=== PATIENT | female | born 1955 | race Caucasian/White ===

== ENCOUNTER → 2020-01-31 10:33 | Outpatient (CLI) | payer BC, SELFPAY ==
--- NOTE | ~2020-01-31 | CT_ITS ---
EXAMINATION: CT lung screening DATE: 01/31/2020 10:55 INDICATION: Personal history of nicotine dependence, prior smoker with 35 pack year history TECHNIQUE: Computed tomography (CT) of the chest was performed without intravenous contrast. The dose -length product (DLP) was 374.93 mGy-cm. 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 COMPARISON: 12/14/2016 FINDINGS: There is severe emphysema. Patchy airspace opacities are present in the right lower lobe, l ikely infectious or. No suspicious pulmonary nodules are identified. No pathologically enlarged thora cic lymph nodes are identified. The heart size is normal. There is no pleural effusion or pneumothora x calcified coronary artery atherosclerosis is noted. There is a small sliding hiatal hernia. There i s mild thoracic spondylosis. IMPRESSION: 1. Lung-RADS category 1: Negative. Continue annual screening with noncontrast low-dose chest CT in 12 months. Reviewed, dictated and finalized at location B. IMPRESSION: 1. Lung-RADS category 1: Negative. Continue annual screening with noncontrast l ow-dose chest CT in 12 months.
== END ==
PROVIDERS: PCP Family Medicine; Visit Provider Nurse Practitioner Family
DX: Z12.2 Encounter for screening for malignant neoplasm of respiratory organs (principal); Z87.891 Personal history of nicotine dependence
CPT/HCPCS: G0297

== ENCOUNTER → 2020-11-30 13:40 | Outpatient (CLI) | payer BC, SELFPAY ==
--- NOTE | ~2020-11-30 | US_ITS ---
EXAMINATION: US venous doppler [facility] DATE: 11/30/2020 14:19 INDICATION: Lower limb swelling. TECHNIQUE: Grayscale ultrasound images without and with compression and Doppler ultrasound images of the bilateral lower extremity veins were obtained. COMPARISON: None. FINDINGS: The visualized portions of right common femoral vein, profunda (deep) femoral vein, femoral vein, pop liteal vein, peroneal veins, posterior tibial veins, and greater saphenous vein outflow are patent. The visualized portions of left common femoral vein, profunda femoral vein, femoral vein, popliteal v ein, peroneal veins, posterior tibial veins, and greater saphenous vein outflow are patent. IMPRESSION: 1. No deep venous thrombosis. Reviewed, dictated and finalized at location A.
== END ==
PROVIDERS: PCP Family Medicine; Visit Provider Family Medicine
DX: M79.89 Other specified soft tissue disorders (principal)
CPT/HCPCS: 93970

== ENCOUNTER 2021-04-30 10:46 | Inpatient (IN) | payer BC, SELFPAY ==
[2021-04-30] VITALS (22 sets, daily range): BP systolic 122–186; BP diastolic 56–78; PULSE 78–110; RESP 14–34; TEMP 37–37.3; O2SAT 81–100; BMI 48.6
--- NOTE | ~2021-04-30 | CT_ITS ---
EXAMINATION: CTA chest PE protocol EXAM DATE: 05/05/2021 16:28 INDICATION: COVID pneumonia. TECHNIQUE: Spiral CTA of the chest (pulmonary arteries) was performed with 100 cc Omnipaque 350 intr avenous contrast injection. Images were acquired during the pulmonary arterial phase. Coronal maxi mum intensity projection 3D-reconstructions were created by the technologist on dedicated workstation . Axial, coronal and sagittal reformatted images were reviewed. The dose-length product (DLP) for t his examination was 938.31 mGy-cm. The exposure was tailored according to patient size (auto mA exp osure control), and iterative reconstruction (ASIR) was used as additional dose reduction technique. Comparison is made to prior examination from 01/31/2020. FINDINGS: There are no pulmonary emboli in the 1st through 3rd order (central and interlobar) pulmon kristen arteries. Some loss of attenuation in the segmental pulmonary arteries due to respiratory motion , but no intraluminal filling defects suspected. No thoracic aortic dissection. Moderate amount of lower lobe predominant airspace disease probably pneumonia. There is severe chronic emphysema. Ther e are no pleural or pericardial effusions. Tracheobronchial tree is patent. Mild mediastinal lymp hadenopathy probably reactive. There is no pneumothorax. There is cardiomegaly. There is mild cor onary arterial calcification, arterial sclerosis. Upper abdomen is unremarkable. There is thoracic spondylosis without osteoblastic or osteolytic lesions identified. Right mid rib fracture with non union. IMPRESSION: 1. Limited segmental evaluation, but no pulmonary emboli are suspected. 2. Moderate pneumonia. 3. Severe emphysema. Reviewed, dictated and finalized at location B. TER LINER
--- NOTE | ~2021-04-30 | XR_ITS ---
EXAMINATION: XR chest 1V portable EXAM DATE: 05/03/2021 08:53 INDICATION: COVID pneumonia. TECHNIQUE: Portable AP frontal chest x-ray was obtained. Comparison is made to prior examination from 04/30/2021. FINDINGS: Diffuse abnormal mid and lower lung zone reticulation, pneumonia and/or edema. Appearance i s either stable or with mild interval progression. Mild cardiomegaly. There is no pneumothorax suspec anupam. There are no pleural effusions. Chronic hyperinflation. There are mild bony degenerative changes . IMPRESSION: Moderate amount of basilar predominant pneumonia and/or edema, stable or with mild progr ession. Reviewed, dictated and finalized at location B. QUE COLLECTOR IMPRESSION: Moderate amount of basilar predominant pneumonia and/or edema, sta ble or with mild progression.
--- NOTE | ~2021-04-30 | XR_ITS ---
EXAMINATION: XR chest 1V portable DATE: 04/30/2021 11:21 INDICATION: COVID exposure. Hypoxia. TECHNIQUE: frontal view of the chest was obtained. COMPARISON: Chest radiograph dated chest CT dated 01/31/2020 FINDINGS: Emphysema with increased lucency and architectural distortion in the upper lung zones. Increased inte rstitial pattern and mild airspace opacities in the bilateral mid to lower lung zones which could rep resent pulmonary edema or pneumonia. No pleural effusion or pneumothorax. The cardiomediastinal silho uette is normal. IMPRESSION: 1. Interstitial and airspace opacity in the bilateral mid and lower lung zones which could represent pulmonary edema or pneumonia. 2. Emphysema. Reviewed, dictated and finalized at location B. E CHARGE RN
--- NOTE | ~2021-04-30 | XR_ITS ---
XR chest 1V portable DATE: 05/14/2021 11:23 INDICATION: Covid pneumonia TECHNIQUE: Portable upright AP chest on 05/10/2021 at 1116 hours COMPARISON: 05/08/2021 portable AP chest FINDINGS: There are patchy infiltrates in both mid and particularly lower lung zones, increased since 05/08/2021. Bilateral hyperinflation suggesting COPD. Heart size appears borderline. No pleural effusion or pulmonary vascular congestion or pneumothorax i s evident. Diffuse osteopenia. IMPRESSION: Patchy infiltrate primarily in the lower lung zones suggesting bilateral pneumonia. Aspir ation pneumonitis is additional consideration. Bilateral hyperinflation suggesting COPD Diffuse osteopenia Reviewed, dictated and finalized at location A. MACOLOGY ASSOCIATE IMPRESSION: Patchy infiltrate primarily in the lower lung zones suggesting bila teral pneumonia. Aspiration pneumonitis is additional consideration. Bilateral hyperinflation suggesting COPD Diffuse osteopenia
--- NOTE | ~2021-04-30 | US_ITS ---
EXAMINATION: US venous doppler LE EXAM DATE: 05/03/2021 10:17 INDICATION: COVID pneumonia. Hypoxia, shortness of breath. TECHNIQUE: Multiple grayscale, color flow and Doppler images of the lower extremity deep venous syste ms bilaterally were obtained and reviewed. Comparison is made to prior examination from 11/30/2020. FINDINGS: Right side: The right common femoral, femoral and profunda veins demonstrate normal color flow, respi ratory variation, augmentation and compressibility. Compressibility, color flow confirmed within the right popliteal, posterior tibial, peroneal, and greater saphenous veins. Left side: The left common femoral, femoral and profunda veins demonstrate normal color flow, respira tory variation, augmentation and compressibility. Compressibility, color flow confirmed within the l eft popliteal, posterior tibial, peroneal, and greater saphenous veins. IMPRESSION: 1. No lower extremity deep venous thrombosis bilaterally. Reviewed, dictated and finalized at location B. ICAL THERAPY TECHNICIAN
--- NOTE | ~2021-04-30 | XR_ITS ---
EXAMINATION: XR chest 1V portable DATE: 05/08/2021 06:07 INDICATION: COVID-19 pneumonia. TECHNIQUE: A single frontal view of the chest was obtained. COMPARISON: Chest single view 05/03/2021, chest CT 05/05/2021, chest 2 views 05/18/2016 FINDINGS: There are lucencies in the lungs, consistent with emphysema. There are interstitial and air space opacities throughout the lungs bilaterally with a lower lung predominance. No pleural effusion or pneumothorax. Cardiomegaly is noted. IMPRESSION: 1. Diffuse lung disease, stable from 05/03/2021, consistent with pneumonia versus pulmonary edema sup erimposed on severe emphysema. 2. Cardiomegaly. Reviewed, dictated and finalized at location A. ER IMPRESSION: 1. Diffuse lung disease, stable from 05/03/2021, consistent with pneumonia vers us pulmonary edema superimposed on severe emphysema. 2. Cardiomegaly.
--- NOTE | 2021-04-30 10:49 | ECG_ITS ---
Measurements Intervals [place] Rate: 100 P: 9 TX: 166 QRS: 60 QRSD: 74 T: 38 QT: 350 QTc: 452 Interpretive Statements SINUS TACHYCARDIA BASELINE ARTIFACT- I, II, III, AVR, AVL, AVF, V1, V3-V6 BORDERLINE ECG Electronically Signed On 04-30-2021 16:39:44 UNDERWEAR CUTTER by Segun Kerr D.O.
[2021-04-30 11:03] LABS: Basophils Percent Auto 0.3 % (0.2-1.2); Hematocrit 39.3 % (37.0-47.0); Hemoglobin 11.6 g/dL (12.0-15.0); Immature Granulocyte Absolute 0.03 K/mm3 (0.00-0.031); Immature Granulocyte Percent A 0.4 % (0-0.5); Lymphocytes Absolute Auto 0.95 K/mm3 (0.9-3.2); Lymphocytes Percent Auto 13.9 % (18.3-44.2); Mean Corpuscular HGB Conc 29.5 g/dl (32-36); Mean Corpuscular Hemoglobin 26.7 pg (26-34); Mean Corpuscular Volume 90.3 fl (80-100); Mean Platelet Volume 9.8 fl (7.4-10.4); Monocytes Absolute Auto 0.6 K/mm3 (0.1-0.6); Monocytes Percent Auto 8.9 % (2.6-8.5); Neutrophils Absolute Auto 5.2 K/mm3 (1.3-6.7); Neutrophils Percent Auto 76.5 % (45.5-73.1); Platelet Count Result 219 k/mm3 (150-375); Red Blood Count 4.35 M/mm3 (4.2-5.4); Red Cell Distribution Width 16.2 % (11.5-14.5); White Blood Count 6.8 K/mm3 (4.5-10.0)
[2021-04-30 11:12] LABS: INR 0.9; Prothrombin Time 12.2 Seconds (11.1-14.7)
[2021-04-30 11:14] LABS: Alanine Aminotransferase 55 U/L (4-35); Alkaline Phosphatase 78 U/L (38-126); Anion Gap 9 mmol/L (8-16); Aspartate Amino Transferase 84 U/L (14-36); Bilirubin,Total 0.6 mg/dL (0.2-1.3); Blood Urea Nitrogen 11 mg/dL (7-17); Carbon Dioxide 37 mmol/L (22-30); Chloride 92 mmol/L (98-107); Estimated CRCL calculation 133 ml/min; Estimated Glomerular Filt Rate > 60; Glucose 161 mg/dL (65-110); Sodium 138 mmol/L (137-145)
[2021-04-30 11:25] LABS: Base Excess ABG 10.7 mEq/l (+/-2.0); Carboxyhemoglobin 0.4 % THb (0-2.0); Fractional Inspired Oxygen 100 %; HCO3 ABG 37.6 mEq/l (22.0-26.0); Oxygen Content ABG 16.6 %vol (16.0-22.0); Oxyhemoglobin 93.9 % THb (90.0-100.0); PO2 ABG 76.4 mmHg (80.0-100.0); PO2 FiO2 Ratio Arterial Blood 0.76 %; Reduced Hemoglobin 5.7 %THb (0-5.0); Total Hemoglobin 12.5 g/dL (12.0-18.0); pH ABG 7.404 (7.350-7.450)
[2021-04-30 11:26] LABS: Device NON-REBREATHER MASK; Modified Allen's Test Pass; PCO2 ABG 61.6 mmHg (35.0-45.0); Site Drawn RIGHT RADIAL
[2021-04-30 11:30] LABS: Anisocytosis 1+ (NORMAL); Hypochromasia 1+ (NORMAL); Platelet Estimate Adequate (Adequate)
[2021-04-30] MEDS: ONDANSETRON INJ 4 MG/2 ML VIAL IV PUSH ×2 (11:58→16:47)
--- NOTE | 2021-04-30 12:08 | ED.SOB ---
HPI - SOB/Dyspnea General Chief Complaint: Shortness of Breath/Dyspnea Stated Complaint: SOB Time Seen by Provider: 04/30/21 10:47 History of Present Illness HPI Narrative: Patient is a 66-year-old female who presents ER with shortness of breath. Patient has history of emphysema. Patient typically wears 5 L of oxygen at home. She was found to be satting 62% by EMS and was placed on 15 L. Patient had the [employer] vaccination for Covid. She reports that her entire family came down with Covid and had been quarantining in their rooms within the same house as her. They are all coming off quarantine today however she is nearly short of breath. Denies fevers or chills or sweats. Patient is poorly ambulatory at baseline due to her severe lung disease. She has not had her booster shot. Related Data Home Medications Medication Instructions Recorded Confirmed aspirin 81 mg tablet,delayed 81 mg PO DAILY 04/10/19 12/31/20 release amoxicillin 875 mg-potassium 1 tablet PO BID 12/31/20 12/31/20 clavulanate 125 mg tablet Allergies Allergy/AdvReac Type Severity Reaction Status Date / Time No Known Allergies Allergy Verified 04/30/21 10:51 Review of Systems Review of Systems: All systems reviewed & are unremarkable except as noted in HPI and below Constitutional: Constitutional: Denies chills, Denies fever(s) and Reports weakness ENT: Denies nasal congestion and Denies sore throat Cardiovascular: Cardiovascular: Denies chest pain, Denies rapid heart rate and Denies radiating jaw, neck or arm pain Respiratory: Respiratory: Denies cough, Reports dyspnea and Denies wheezing Gastrointestinal: Gastrointestinal: Denies abdominal pain, Denies nausea and Denies vomiting Genitourinary: Genitourinary: Denies nocturia and Denies dysuria [facility] Past Medical History Medical History (Updated 04/30/21 @ 18:05 by Patrice Petersen MD) Anxiety disorder, unspecified Dyspnea Emphysema lung Foot callus Morbid obesity Severe obesity (BMI >= 40) Swelling of lower leg Thrush, oral Family History Family History Father Hypertension Family history of diabetes mellitus in first degree relative Diabetes mellitus, Onset Age: 78 Mother Cerebrovascular accident, Onset Age: 66 Family history of diabetes mellitus in first degree relative Family history of coronary artery disease Diabetes mellitus, Onset Age: 66 Sibling Family history of diabetes mellitus in first degree relative Social History Social History Smoking end date: 05/22/15 Alcohol intake: never Exam Narrative: GENERAL: ill-appearing, well-nourished, and in moderate distress. HEAD: Normocephalic, atraumatic. EYES: PERRL and EOMI. ENT: Mucous membranes moist. CHEST: Clear to auscultation. Moderate respiratory distress. HEART: Tachycardic and regular. Normal peripheral pulses. ABDOMEN: Soft, nontender, nondistended. EXTREMITIES: Normal range of motion. No edema. SKIN: Warm, dry, no rash. NEURO: Alert and oriented x3. PSYCH: Normal mood and affect. Course Course Emergency Course: Patient informed results. Placed on BiPAP for comfort. Decadron given. Suspect COVID-19 infection. Vital Signs Vital signs: Vital Signs Temperature 99.2 F 04/30/21 10:43 Pulse Rate 105 H 04/30/21 10:43 Respiratory Rate 34 H 04/30/21 10:43 Blood Pressure 186/72 H 04/30/21 10:43 Pulse Oximetry 91 04/30/21 10:43 Temperature 99.2 F 04/30/21 10:43 Pulse Rate 100 04/30/21 14:15 Respiratory Rate 16 04/30/21 14:15 Blood Pressure 132/78 04/30/21 12:49 Pulse Oximetry 81 L 04/30/21 14:15 MDM - SOB/Dyspnea Lab Data Result diagrams: 04/30/21 10:56 04/30/21 10:56 Labs: Lab Results 04/30/21 04/30/21 04/30/21 Range/Units 10:56 10:56 10:56 WBC 6.8 (4.5-10.0) K/mm3 RBC 4.35
[2021-04-30 12:25] LABS: NT Pro B Type Natriuretic Pept 125 pg/mL (5-100)
[2021-04-30] MEDS: DEXAMETHASONE SOD PHOS INJ 4 MG/ML VIAL 6 MG IV PUSH (12:37)
--- NOTE | 2021-04-30 14:21 | PC.NURSE ---
patient verbalizing numerous c/o about comfort measures. patient reports that the room is too hot, meal tray provided was gross , the bed is uncomfortable and the c-pap keeps beeping. patient requesting a fan for her damaris and called this rn stupid when told it was against droplet precautions.
[2021-04-30 15:46] LABS: EDCOVIDSCREEN Negative (Negative)
--- NOTE | 2021-04-30 16:30 | PM.IMHP ---
H&P: HPI History of Present Illness Date/Time: 04/30/21 16:30 Chief Complaint: Shortness of breath. Narrative: This is a 66-year-old female with chronic respiratory failure on 5 L nasal cannula, COPD/emphysema, and diet-controlled diabetes who presented to the emergency department earlier today from home for evaluation of shortness of breath. Several of her family members contracted COVID and they have been in quarantine in her house for the last couple of weeks. They have started feeling better however the patient has now developed symptoms to include an increase in her cough from baseline occasionally productive of milky colored phlegm, decreased appetite, sweats, and subjective fever. She has also had increasing shortness of breath to the point where she has not really been able to do anything today. Family members called 911 on EMS arrival her SpO2 was 65% her normal 5 L of oxygen. Chest x-ray done on arrival today showed findings suspicious for pneumonia and her SARS-CoV-2 by PCR has come back positive. Currently she is on BiPAP and feels much more comfortable. She denies chest pain, pleuritic pain, palpitations, nausea, vomiting, and diarrhea. She did received the [employer] COVID vaccination in early spring but has yet to have a booster. Review of Systems Review of Systems: Twelve systems were reviewed. No syncope or near syncope. She denies anosmia and dysgeusia. No dysuria. She has intermittent lower extremity edema which is unchanged. No history of venous thromboembolism. Except as documented, all other systems were reviewed and are negative. [facility] Past Medical History Medical History (Updated 04/30/21 @ 22:16 by Holly Rider PA-C) Anxiety disorder, unspecified Chronic respiratory failure with hypoxia, on home oxygen therapy COPD with emphysema Diet-controlled diabetes mellitus Emphysema lung Obstructive sleep apnea on CPAP Severe obesity (BMI >= 40) Surgical History Surgical History (Updated 04/30/21 @ 22:16 by Holly Rider PA-C) No history of major surgery within 1 month Family History Family History Father Hypertension Family history of diabetes mellitus in first degree relative Diabetes mellitus, Onset Age: 78 Mother Cerebrovascular accident, Onset Age: 66 Family history of diabetes mellitus in first degree relative Family history of coronary artery disease Diabetes mellitus, Onset Age: 66 Sibling Family history of diabetes mellitus in first degree relative Social History Social History (Updated 04/30/21 @ 21:57 by Holly Rider PA-C) Social History: Surrogate decision maker: Chang Castaneda, spouse. Code status: Full code. Smoking status: Former smoker Smoking end date: 05/22/15 Additional smoking assessment comments: 1 to 2 packs a day for approximately 45 years Alcohol intake: never Substance use: never Additional living arrangements comments: The patient lives in [place] with her . Additional occupation/education comments: On disability. Meds Home Medications and Allergies Home Medications Medication Instructions Recorded Confirmed Type aspirin 81 mg tablet,delayed 81 mg PO DAILY 04/10/19 12/31/20 History release naloxone 4 mg/actuation nasal spray 4 mg NASAL Q2M PRN #2 each 12/12/19 12/31/20 Rx albuterol sulfate 2.5 mg INHALATION Q6H PRN #360 ml 05/18/20 12/31/20 Rx fluticasone fur. 100 mcg-umeclid See Rx Instructions .ROUTE 07/01/20 12/31/20 Rx 62.5 mcg-vilant 25 mcg .COMPLEX #60 ea inhalat.powder zafirlukast 20 mg tablet See Rx Instructions .ROUTE 11/09/20 12/31/20 Rx .COMPLEX #180 tablet albuterol sulfate 90 mcg/actuation See Rx Instructions .ROUTE 12/18/20 12/31/20 Rx aerosol inhaler .COMPLEX #8.5 g amoxicillin 875 mg-potassium 1 tablet PO BID 12/31/20 12/31/20 History clavulanate 125 mg tablet nystatin 100,000 unit/gram topical 1 kathi
--- NOTE | 2021-04-30 16:54 | PC.NURSE ---
patient frequently claim professional light to report that she doesnt like the c-pap mask and that she is hot,nauseated, uncomfortable etc
[2021-04-30 19:26] LABS: SARS-CoV-2 RNA PCR Positive
[2021-04-30 23:15] LABS: Prothrombin Time 12.6 Seconds (11.1-14.7)
[2021-04-30 23:17] LABS: Alanine Aminotransferase 55 U/L (4-35); Estimated CRCL calculation 133 ml/min; Estimated Glomerular Filt Rate > 60
[2021-04-30 23:20] LABS: Hemoglobin A1C 6.4 % (<5.7)
[2021-05-01] VITALS (18 sets, daily range): BP systolic 109–152; BP diastolic 59–74; PULSE 90–115; RESP 16–30; TEMP 36.1–37.1; O2SAT 81–100
[2021-05-01] MEDS: ONDANSETRON INJ 4 MG/2 ML VIAL IV PUSH ×2 (00:19→22:34)
[2021-05-01 00:30] LABS: Hepatitis B Surface Antigen Negative (Negative)
[2021-05-01 00:36] LABS: HAV RESULT Negative (Negative); Hepatitis B Core IgM Result Negative (Negative)
[2021-05-01 00:47] LABS: Hepatitis C Virus Antibody Negative (Negative)
[2021-05-01] MEDS: REMDESIVIR 200 MG/NS 250 ML 200 MG/250 ML BAG 250 MG IVPB (01:56)
--- NOTE | 2021-05-01 02:26 | ADMGEN ---
This patient, Daxa Castaneda, was admitted to IMU Room 203-01. Patient/family oriented to hospital policies and general routines including ID bracelet, bed and alarms, visiting hours, pain management, procedures, bathroom and other care routines, personal items, smoking policy, room service/diet, and visiting hours. Information on how to activate the Rapid Response Team has been discussed. Patient/Family are encouraged to report perceived risks to care and to ask questions if they do not understand what they are told or what they should do.
[2021-05-01] MEDS: DEXAMETHASONE SOD PHOS INJ 4 MG/ML VIAL 6 MG IV PUSH (08:13)
[2021-05-01] MEDS: ENOXAPARIN 40 MG/0.4 ML SYRINGE SUB-Q (08:13)
[2021-05-01 08:53] LABS: Glucose Point of Care 117 mg/dl (65-105)
[2021-05-01 10:22] LABS: Hematocrit 39.2 % (37.0-47.0); Hemoglobin 11.3 g/dL (12.0-15.0); Mean Corpuscular HGB Conc 28.8 g/dl (32-36); Mean Corpuscular Hemoglobin 26.4 pg (26-34); Mean Corpuscular Volume 91.6 fl (80-100); Platelet Count Result 242 k/mm3 (150-375); Red Blood Count 4.28 M/mm3 (4.2-5.4); Red Cell Distribution Width 15.9 % (11.5-14.5); White Blood Count 11.3 K/mm3 (4.5-10.0)
[2021-05-01 10:32] LABS: INR 0.9; Prothrombin Time 12.5 Seconds (11.1-14.7)
[2021-05-01 10:51] LABS: Alanine Aminotransferase 52 U/L (4-35); Albumin Level 4.1 g/dL (3.5-5.1); Alkaline Phosphatase 79 U/L (38-126); Anion Gap 5 mmol/L (8-16); Aspartate Amino Transferase 76 U/L (14-36); Bilirubin,Total 0.5 mg/dL (0.2-1.3); Blood Urea Nitrogen 11 mg/dL (7-17); CRP 6.8 mg/dL (<1.0); Calcium 8.8 mg/dL (8.4-10.2); Carbon Dioxide 39 mmol/L (22-30); Chloride 89 mmol/L (98-107); Estimated CRCL calculation 133 ml/min; Estimated Glomerular Filt Rate > 60; Glucose 147 mg/dL (65-110); Lactate Dehydrogenase 913 U/L (313-618); Magnesium 1.4 mg/dL (1.6-2.3); Potassium 4.1 mmol/L (3.4-5.0); Sodium 133 mmol/L (137-145)
[2021-05-01] MEDS: FUROSEMIDE INJ 40 MG/4 ML VIAL IV PUSH (12:57)
[2021-05-01] MEDS: ALPRAZolam (*CRX) 0.5 MG TABLET PO ×2 (12:57→16:29)
[2021-05-01 13:00] LABS: Glucose Point of Care 148 mg/dl (65-105)
--- NOTE | 2021-05-01 15:41 | PM.IMPN ---
Progress Note: A&P Assessment and Plan (1) Acute and chronic respiratory failure: Code(s): J96.20 - Acute and chronic respiratory failure, unspecified whether with hypoxia or hypercapnia Status: Acute Assessment and Plan: Secondary to COVID pneumonia. Pulmonary embolism is considered but seems less likely by history. If her oxygen requirement remains high a CTA of the chest would be prudent. 05/01/2021 interval history: patient is 66-year-old morbidly obese female with COVID-19 hypoxic on BiPAP and has difficulty with breathing I spoke with respiratory and they will adjust BiPAP setting patient was started on dexamethasone 6 mg q.day and remdesivir on 04/30, will add Lasix 40 mg IV as shown to improve oxygenation and COVID patients. will continue to monitor and there is no significant improvement will consult liberal arts dean further recommendationm, (2) Pneumonia due to COVID-19 virus: Code(s): U07.1 - COVID-19; J12.82 - Pneumonia due to coronavirus disease 2019 Status: Acute Assessment and Plan: She has been started on dexamethasone and remdesivir per protocol. Consider tocilizumab or baricitinib, inflammatory markers pending. (3) Elevated LFTs: Code(s): R79.89 - Other specified abnormal findings of blood chemistry Status: Acute Assessment and Plan: May be due to COVID. Will check hepatitis panel for completeness sake and monitor. (4) Obstructive sleep apnea on CPAP: Code(s): G47.33 - Obstructive sleep apnea (adult) (pediatric); Z99.89 - Dependence on other enabling machines and devices Status: Acute Assessment and Plan: Currently on BiPAP. (5) COPD with emphysema: Code(s): J43.9 - Emphysema, unspecified Status: Acute Assessment and Plan: No acute bronchospasm. Continue treatment as detailed above. (6) Diet-controlled diabetes mellitus: Code(s): E11.9 - Type 2 diabetes mellitus without complications Status: Acute Assessment and Plan: Initiate sliding scale insulin, Accu-Cheks, and hypoglycemic protocol. Hemoglobin A1c. Subjective Date/time seen: 05/01/21 15:41 HPI Chief Complaint: Shortness of breath. Narrative: This is a 66-year-old female with chronic respiratory failure on 5 L nasal cannula, COPD/emphysema, and diet-controlled diabetes who presented to the emergency department earlier today from home for evaluation of shortness of breath. Several of her family members contracted COVID and they have been in quarantine in her house for the last couple of weeks. They have started feeling better however the patient has now developed symptoms to include an increase in her cough from baseline occasionally productive of milky colored phlegm, decreased appetite, sweats, and subjective fever. She has also had increasing shortness of breath to the point where she has not really been able to do anything today. Family members called 911 on EMS arrival her SpO2 was 65% her normal 5 L of oxygen. Chest x-ray done on arrival today showed findings suspicious for pneumonia and her SARS-CoV-2 by PCR has come back positive. Currently she is on BiPAP and feels much more comfortable. She denies chest pain, pleuritic pain, palpitations, nausea, vomiting, and diarrhea. She did received the [employer] COVID vaccination in early spring but has yet to have a booster. 05/01/2021 interval history: patient is 66-year-old morbidly obese female with COVID-19 hypoxic on BiPAP and has difficulty with breathing I spoke with respiratory and they will adjust BiPAP setting patient was started on dexamethasone 6 mg q.day and remdesivir on 04/30, will add Lasix 40 mg IV as shown to improve oxygenation and COVID patients. will continue to monitor and there is no significant improvement will consult liberal arts dean further recommendationm, Review of Systems Review of Systems: ROS unobtainable: Yes unobtainable due to medical condition Ex
[2021-05-01] MEDS: ZAFIRLUKAST 20 MG TABLET PO (16:29)
[2021-05-01] MEDS: HYDROcodone/acetaminophen (*CRX) 5-325 MG TABLET 1 TAB PO ×2 (16:29→20:46)
[2021-05-01 17:02] LABS: Glucose Point of Care 127 mg/dl (65-105)
[2021-05-01 20:49] LABS: Glucose Point of Care 107 mg/dl (65-105)
[2021-05-01] MEDS: REMDESIVIR 100 MG/NS 250 ML 100 MG/250 ML BAG 250 MG IVPB (22:15)
[2021-05-02] VITALS (17 sets, daily range): BP systolic 130–170; BP diastolic 64–97; PULSE 83–142; RESP 16–32; TEMP 35.9–37.1; O2SAT 88–96
[2021-05-02] MEDS: ONDANSETRON INJ 4 MG/2 ML VIAL IV PUSH ×4 (02:23→22:14)
[2021-05-02 05:26] LABS: INR 1.1; Prothrombin Time 13.6 Seconds (11.1-14.7)
[2021-05-02] MEDS: ZAFIRLUKAST 20 MG TABLET PO ×2 (06:32→17:38)
[2021-05-02] MEDS: FLUTICASONE/UMECLIDIN/VILANTER 100-62.5-25 MCG ELLIPTA 1 PUFF INHALATION (08:43)
[2021-05-02 08:47] LABS: Glucose Point of Care 105 mg/dl (65-105)
[2021-05-02 09:27] LABS: Basophils Percent Auto 0.3 % (0.2-1.2); Hemoglobin 11.3 g/dL (12.0-15.0); Immature Granulocyte Absolute 0.04 K/mm3 (0.00-0.031); Immature Granulocyte Percent A 0.4 % (0-0.5); Lymphocytes Absolute Auto 1.13 K/mm3 (0.9-3.2); Lymphocytes Percent Auto 11.1 % (18.3-44.2); Mean Corpuscular HGB Conc 29.7 g/dl (32-36); Mean Corpuscular Hemoglobin 26.5 pg (26-34); Mean Platelet Volume 9.9 fl (7.4-10.4); Monocytes Absolute Auto 0.9 K/mm3 (0.1-0.6); Monocytes Percent Auto 8.9 % (2.6-8.5); Neutrophils Absolute Auto 8.1 K/mm3 (1.3-6.7); Neutrophils Percent Auto 79.3 % (45.5-73.1); Platelet Count Result 290 k/mm3 (150-375); Red Blood Count 4.27 M/mm3 (4.2-5.4); Red Cell Distribution Width 15.9 % (11.5-14.5); White Blood Count 10.2 K/mm3 (4.5-10.0)
[2021-05-02 09:44] LABS: Alanine Aminotransferase 42 U/L (4-35); Albumin Level 3.8 g/dL (3.5-5.1); Alkaline Phosphatase 70 U/L (38-126); Aspartate Amino Transferase 67 U/L (14-36); Bilirubin,Total 0.7 mg/dL (0.2-1.3); Blood Urea Nitrogen 16 mg/dL (7-17); CRP 6.9 mg/dL (<1.0); Calcium 8.5 mg/dL (8.4-10.2); Carbon Dioxide > 40 mmol/L (22-30); Chloride 89 mmol/L (98-107); Estimated CRCL calculation 134 ml/min; Estimated Glomerular Filt Rate > 60; Glucose 112 mg/dL (65-110); Magnesium 1.8 mg/dL (1.6-2.3); Potassium 3.6 mmol/L (3.4-5.0); Sodium 137 mmol/L (137-145)
[2021-05-02 09:52] LABS: Anisocytosis 1+ (NORMAL); Platelet Estimate Adequate (Adequate); Stomatocytes 1+ (NORMAL)
[2021-05-02] MEDS: ALPRAZolam (*CRX) 0.5 MG TABLET PO ×3 (10:17→21:06)
[2021-05-02] MEDS: ASPIRIN 81 MG ENTERIC TABLET PO (10:17)
[2021-05-02] MEDS: ATORVASTATIN 10 MG TABLET PO (10:17)
[2021-05-02] MEDS: ENOXAPARIN 40 MG/0.4 ML SYRINGE SUB-Q (10:18)
[2021-05-02] MEDS: CITALOPRAM HYDROBROMIDE 20 MG TABLET PO (10:18)
[2021-05-02] MEDS: DEXAMETHASONE SOD PHOS INJ 4 MG/ML VIAL 6 MG IV PUSH (10:18)
[2021-05-02] MEDS: FUROSEMIDE INJ 40 MG/4 ML VIAL IV PUSH (10:19)
[2021-05-02] MEDS: MORPHINE SULFATE (*CRX) 4 MG/ML INJ IV PUSH ×2 (10:19→22:13)
--- NOTE | 2021-05-02 11:59 | ECG_ITS ---
Measurements Intervals [place] Rate: 103 P: 67 [place]: 191 QRS: 48 QRSD: 77 T: 34 QT: 343 QTc: 450 Interpretive Statements SINUS TACHYCARDIA POSSIBLE LEFT ATRIAL ENLARGEMENT BORDERLINE T WAVE ABNORMALITY- INFERIOR LEADS BASELINE ARTIFACT- I, II, III, AVR, AVF, V1, V5 BORDERLINE ECG Electronically Signed On 05-02-2021 16:35:39 ICING COATER by Segun Kerr D.O.
--- NOTE | 2021-05-02 13:43 | PM.IMPN ---
Progress Note: A&P Assessment and Plan (1) Acute and chronic respiratory failure: Code(s): J96.20 - Acute and chronic respiratory failure, unspecified whether with hypoxia or hypercapnia Status: Acute Assessment and Plan: Secondary to COVID pneumonia. Pulmonary embolism is considered but seems less likely by history. If her oxygen requirement remains high a CTA of the chest would be prudent. 05/01/2021 interval history: patient is 66-year-old morbidly obese female with COVID-19 hypoxic on BiPAP and has difficulty with breathing I spoke with respiratory and they will adjust BiPAP setting patient was started on dexamethasone 6 mg q.day and remdesivir on 04/30, will add Lasix 40 mg IV as shown to improve oxygenation and COVID patients. will continue to monitor and there is no significant improvement will consult diesel machinist further recommendation to follow. , 05/02/2021 interval history: patient is 66-year-old morbidly obese female with COVID-19 hypoxic on BiPAP and has difficulty with breathing I spoke with respiratory and they will adjust BiPAP setting patient was started on dexamethasone 6 mg q.day and remdesivir on 04/30, will add Lasix 40 mg IV as shown to improve oxygenation and COVID patients. today spoke with Dr. Lange diesel machinist seen the patient added Tocilizumab, today patient states feeling better compared to when she arrived, patient states see wants to be DNR and no CPR, I called patient's Chang Castaneda [phone] and discussed with him code status and he agrees with DNR as the patient had spoken with him, her desire to be DNR, will continue to monitor and further recommendation to follow. (2) Pneumonia due to COVID-19 virus: Code(s): U07.1 - COVID-19; J12.82 - Pneumonia due to coronavirus disease 2019 Status: Acute Assessment and Plan: She has been started on dexamethasone and remdesivir per protocol. Consider tocilizumab or baricitinib, inflammatory markers pending. (3) Elevated LFTs: Code(s): R79.89 - Other specified abnormal findings of blood chemistry Status: Acute Assessment and Plan: May be due to COVID. Will check hepatitis panel for completeness sake and monitor. (4) Obstructive sleep apnea on CPAP: Code(s): G47.33 - Obstructive sleep apnea (adult) (pediatric); Z99.89 - Dependence on other enabling machines and devices Status: Acute Assessment and Plan: Currently on BiPAP. (5) COPD with emphysema: Code(s): J43.9 - Emphysema, unspecified Status: Acute Assessment and Plan: No acute bronchospasm. Continue treatment as detailed above. (6) Diet-controlled diabetes mellitus: Code(s): E11.9 - Type 2 diabetes mellitus without complications Status: Acute Assessment and Plan: Initiate sliding scale insulin, Accu-Cheks, and hypoglycemic protocol. Hemoglobin A1c. Subjective Date/time seen: 05/02/21 13:43 05/01/2021 interval history: patient is 66-year-old morbidly obese female with COVID-19 hypoxic on BiPAP and has difficulty with breathing I spoke with respiratory and they will adjust BiPAP setting patient was started on dexamethasone 6 mg q.day and remdesivir on 04/30, will add Lasix 40 mg IV as shown to improve oxygenation and COVID patients. will continue to monitor and there is no significant improvement will consult diesel machinist further recommendation follow. 05/02/2021 interval history: patient is 66-year-old morbidly obese female with COVID-19 hypoxic on BiPAP and has difficulty with breathing I spoke with respiratory and they will adjust BiPAP setting patient was started on dexamethasone 6 mg q.day and remdesivir on 04/30, will add Lasix 40 mg IV as shown to improve oxygenation and COVID patients. today spoke with Dr. Lange diesel machinist seen the patient added Tocilizumab, today patient states feeling better compared to when she arrived, patient states see wants
[2021-05-02 13:59] LABS: Glucose Point of Care 121 mg/dl (65-105)
[2021-05-02] MEDS: TOCILIZUMAB 800 MG in SODIUM CHLORIDE 0.9% IV 60 ML 100 MG IVPB (14:00)
--- NOTE | 2021-05-02 15:04 | PM.CNPUL ---
Assessment and Plan Assessment and plan (1) Pneumonia due to COVID-19 virus: Code(s): U07.1 - COVID-19; J12.82 - Pneumonia due to coronavirus disease 2018 Status: Acute Assessment and Plan: Patient tested positive for COVID-19 on 04/30 and started on remdesivir, dexamethasone on 04/30 and given tocilizumab on 05/02. S/P J and J vaccine spring 2020. - Remdesivir for 10 days Unless he should recover and tolerate room air with rest, ambulation and while sleeping. - Dexamethasone 6 mg IV for 10 days - Continuous pulse oximetry - Prone positioning as tolerated. - Avoid any fluid overload. - Trelegy inhaler for her COPD - Will check influenza swab. Keep saturations are 90-94% with BiPAP now at 90%, if she fails increase FIO2 to 100% and then increase EPAP. I spoke to her and she is DNR and does not wish for CPR, defibrillation or intubation. Discussed with Dr. Contreras, Will follow with you. (2) Acute and chronic respiratory failure: Code(s): J96.20 - Acute and chronic respiratory failure, unspecified whether with hypoxia or hypercapnia Status: Acute Assessment and Plan: Etiology of hypoxic respiratory failure is COVID pneumonia. BNP equal 125 New onset Afib and cardiology following. D-dimer is positive but she is clinically too unstable at this time to undergo CT angiogram of the chest. Will order chest x-ray in the morning I will order lower extremity Dopplers and echocardiogram on 05/03/2021. A tighter the BiPAP machine to comfort and she stated that on BiPAP 17/7 with an inspiratory time of 0.5 was the most comfortable settings. 04/30 10:43 100% NRB with sats 91%, ABG 7.40/62/76. 04/30 12:15 BiPAP 04/25 100%, sats 98% 05/01 08:00 BiPAP /, 100%, sats 92% 05/01 11:53 BiPAP 14/7, 75%, sats 91% 05/02 08:00 BiPAP 14/7, 75%, sats 88% 05/02 14:24 BiPAP 17/7, 90%, sats 93% (3) Obstructive sleep apnea on CPAP: Code(s): G47.33 - Obstructive sleep apnea (adult) (pediatric); Z99.89 - Dependence on other enabling machines and devices Status: Acute Assessment and Plan: per pulmonary outpatient note patient on auto PAP 5-15 and a download compliance from 04/07/2020 per the note states average usage 6.9 hours per night, average pressure 11.5, AHI 0.5. Of note there is hypercarbic respiratory failure on presentation with a blood gas of 7.40/62/76 but this is in the setting of an acute COVID pneumonia. Will reassess but patient may she have chronic hypercarbic respiratory failure requiring BiPAP in the future. Currently require BiPAP as above. History of Present Illness History of Present Illness Consult date: 05/02/21 Requesting physician: Samuel Contreras MD Reason for consult: hypoxemia and other (COVID pneumonia) Chief complaint: Acute respiratory failure/Covid PUI Narrative: 05/02/2021: This is a new Pulmonary consult for COVID pneumonia with hypoxemic respiratory failure 66-year-old female with a history of former tobacco use with COPD on trelegy inhaler with severe apical predominant emphysema on her CT scan from 07/11/2016 and 01/31/2020, hypoxemic respiratory failure requiring 4 L nasal cannula, morbid obesity with obstructive sleep apnea requiring auto Pap 5-15 last seen in the Pulmonary Clinic for a virtual visit on 04/07/2020 and at that time she was maintained on trilogy, had a download compliance with her average use is 6.9 hours per night an average pressure of 11.5 and an AHI of 0.5. She received a J and J COVID vaccine in the early spring Of 2020. patient tells me for the last 9 months she has wearing her CPAP constantly with 4 L all day and all night. patient was to exposed to her daughter, son-in-law and who all had COVID and are improving but she developed shortness of breath, cough, increased milky colored phlegm sweats and subjective fevers. on 04/30 EMS was called and saturations on 5 L nasal cannula or 65 and patient was found to be COVID po
[2021-05-02 17:59] LABS: Glucose Point of Care 135 mg/dl (65-105)
[2021-05-02 20:27] LABS: Glucose Point of Care 121 mg/dl (65-105)
[2021-05-02] MEDS: REMDESIVIR 100 MG/NS 250 ML 100 MG/250 ML BAG 250 MG IVPB (21:07)
[2021-05-03] VITALS (17 sets, daily range): BP systolic 134–148; BP diastolic 54–80; PULSE 62–165; RESP 18–25; TEMP 36.1–36.9; O2SAT 91–97
[2021-05-03] MEDS: ONDANSETRON INJ 4 MG/2 ML VIAL IV PUSH ×3 (02:23→21:34)
[2021-05-03] MEDS: MORPHINE SULFATE (*CRX) 4 MG/ML INJ IV PUSH ×2 (02:23→08:59)
[2021-05-03 06:17] LABS: Basophils Percent Auto 0.3 % (0.2-1.2); Eosinophils Absolute Auto 0.1 K/mm3 (0-0.3); Eosinophils Percent Auto 2.2 % (0-4.4); Hematocrit 37.8 % (37.0-47.0); Hemoglobin 11.1 g/dL (12.0-15.0); Immature Granulocyte Absolute 0.03 K/mm3 (0.00-0.031); Immature Granulocyte Percent A 0.5 % (0-0.5); Lymphocytes Absolute Auto 1.29 K/mm3 (0.9-3.2); Mean Corpuscular HGB Conc 29.4 g/dl (32-36); Mean Corpuscular Hemoglobin 26.9 pg (26-34); Mean Corpuscular Volume 91.7 fl (80-100); Mean Platelet Volume 10.7 fl (7.4-10.4); Monocytes Absolute Auto 0.8 K/mm3 (0.1-0.6); Monocytes Percent Auto 13.6 % (2.6-8.5); Neutrophils Absolute Auto 3.6 K/mm3 (1.3-6.7); Neutrophils Percent Auto 61.4 % (45.5-73.1); Platelet Count Result 292 k/mm3 (150-375); Red Blood Count 4.12 M/mm3 (4.2-5.4); Red Cell Distribution Width 15.8 % (11.5-14.5); White Blood Count 5.9 K/mm3 (4.5-10.0)
[2021-05-03 06:34] LABS: INR 1.1; Prothrombin Time 13.9 Seconds (11.1-14.7)
[2021-05-03 06:37] LABS: Alanine Aminotransferase 34 U/L (4-35); Albumin Level 3.8 g/dL (3.5-5.1); Alkaline Phosphatase 68 U/L (38-126); Anion Gap 8 mmol/L (8-16); Aspartate Amino Transferase 51 U/L (14-36); Bilirubin,Total 0.5 mg/dL (0.2-1.3); Blood Urea Nitrogen 15 mg/dL (7-17); Calcium 8.5 mg/dL (8.4-10.2); Carbon Dioxide 39 mmol/L (22-30); Chloride 87 mmol/L (98-107); D Dimer 1.76 ug/mL (<0.48); Estimated CRCL calculation 134 ml/min; Estimated Glomerular Filt Rate > 60; Glucose 96 mg/dL (65-110); Potassium 3.7 mmol/L (3.4-5.0); Sodium 134 mmol/L (137-145)
[2021-05-03] MEDS: ZAFIRLUKAST 20 MG TABLET PO ×2 (06:56→17:18)
--- NOTE | 2021-05-03 08:00 | ECHO_ITS ---
Patient Info Name: Daxa Castaneda Age: 66 years : 1955 Gender: Female Ht: 66 in Wt: 303 lbs BSA: 2.61 m2 HR: 86 bpm BP: 134 / 54 mmHg Heart Rhythm: Sinus Rhythm Technical Quality: Poor Exam Date: 05/03/2021 9:55 AM Exam Location: [facility] Patient Status: Inpatient Admit Date: 04/30/2021 Staff Ordering Physician: Chang Simms MD Family Educator: Eliza Hernandez RDCS Attending Provider: Juanpablo Ramos MD Referring Physician: Mendez LAWSON; Exam Type: CA echo doppler color flow Study Info Indications - HYPOXIA Complete two-dimensional, color flow and Doppler transthoracic echocardiogram is performed with contrast to opacify the left ventricle and to improve the deliniation of the left ventricle endocardial borders. Reason for Poor Study: patient body habitus Summary 1. Technically difficult study with limited views. 2. Left ventricular chamber dimension is normal. 3. Left ventricular systolic function is normal, estimated at 55-60%. 4. There is upper limits normal left ventricular wall thickness. 5. Left ventricular septal wall motion is abnormal with septal motion related to bundle branch block. 6. The left ventricular diastolic function is grade I diastolic dysfunction. 7. There is no aortic valve stenosis. 8. There is no mitral valve regurgitation. 9. The mitral valve annulus is severely calcified. 10. There is trace tricuspid valve regurgitation. 11. Unable to assess PA systolic pressure due to poor spectral resolution of tricuspid regurgitant jet. Left Ventricle Left ventricular chamber dimension is normal. Left ventricular systolic function is normal, estimated at 55-60%. There is upper limits normal left ventricular wall thickness. Left ventricular septal wall motion is abnormal with septal motion related to bundle branch block. The left ventricular diastolic function is grade I diastolic dysfunction. Right Ventricle Right ventricular chamber dimension is normal. Right ventricular systolic function is normal. Left Atria Left atrial chamber dimension is normal. Right Atria Right atrial chamber dimension is normal. Aortic Valve The aortic valve is not well visualized. There is mild aortic valve sclerosis. There is no aortic valve stenosis. There is no aortic valve regurgitation. Pulmonic Valve The pulmonic valve is not well visualized. Mitral Valve The mitral valve has thickened leaflets. There is no mitral valve regurgitation. The mitral valve annulus is severely calcified. Tricuspid Valve The tricuspid valve leaflets are normal. There is trace tricuspid valve regurgitation. Unable to assess PA systolic pressure due to poor spectral resolution of tricuspid regurgitant jet. Pericardium/Pleural The pericardium appears epicardial fat pad. There is trivial pericardial effusion. Aorta The aortic root size at the sinus of Valsalva is normal. There is mild aortic atherosclerosis. Left Ventricular Outflow Tract Name Value Normal LVOT 2D LVOT Diameter 2.0 cm LVOT Doppler LVOT Peak Gradient 7 mmHg LVOT Mean
[2021-05-03 08:20] LABS: Anisocytosis 1+ (NORMAL); Platelet Estimate Adequate (Adequate)
[2021-05-03 08:21] LABS: Stomatocytes 1+ (NORMAL)
[2021-05-03] MEDS: FLUTICASONE/UMECLIDIN/VILANTER 100-62.5-25 MCG ELLIPTA 1 PUFF INHALATION (08:55)
[2021-05-03] MEDS: ATORVASTATIN 10 MG TABLET PO (08:59)
[2021-05-03] MEDS: CITALOPRAM HYDROBROMIDE 20 MG TABLET PO (08:59)
[2021-05-03] MEDS: DEXAMETHASONE SOD PHOS INJ 4 MG/ML VIAL 6 MG IV PUSH (08:59)
[2021-05-03] MEDS: ASPIRIN 81 MG ENTERIC TABLET PO (08:59)
[2021-05-03] MEDS: FUROSEMIDE INJ 40 MG/4 ML VIAL IV PUSH (08:59)
[2021-05-03] MEDS: ALPRAZolam (*CRX) 0.5 MG TABLET PO ×3 (08:59→17:18)
[2021-05-03] MEDS: ENOXAPARIN 40 MG/0.4 ML SYRINGE SUB-Q (09:00)
[2021-05-03 10:02] LABS: Glucose Point of Care 89 mg/dl (65-105)
--- NOTE | 2021-05-03 10:33 | PM.PNPUL ---
Progress Note: A&P Assessment and Plan (1) Pneumonia due to COVID-19 virus: Code(s): U07.1 - COVID-19; J12.82 - Pneumonia due to coronavirus disease 2018 Status: Acute Assessment and Plan: 05/02 Patient tested positive for COVID-19 on 04/30 and started on remdesivir, dexamethasone on 04/30 and given tocilizumab on 05/02. S/P J and J vaccine spring 2020. - Remdesivir for 10 days Unless he should recover and tolerate room air with rest, ambulation and while sleeping. - Dexamethasone 6 mg IV for 10 days - Continuous pulse oximetry - Prone positioning as tolerated. - Avoid any fluid overload. - Trelegy inhaler for her COPD - Will check influenza swab. Keep saturations are 90-94% with BiPAP now at 90%, if she fails increase FIO2 to 100% and then increase EPAP. I spoke to her and she is DNR and does not wish for CPR, defibrillation or intubation. 05/03 Patient clinically states that she feels better. Her breathing is better. She remains on BiPAP rate of 16, 17/7, 90% FiO2 with saturations 95%. Lower extremity Dopplers are negative for DVT. chest x-ray with stable or mild progression of her diffuse interstitial alveolar infiltrates. I will order CT angiogram of the chest to exclude PE. Will follow with you. (2) Acute and chronic respiratory failure: Code(s): J96.20 - Acute and chronic respiratory failure, unspecified whether with hypoxia or hypercapnia Status: Acute Assessment and Plan: Etiology of hypoxic respiratory failure is COVID pneumonia. BNP equal 125 New onset Afib and cardiology following. D-dimer is positive but she is clinically too unstable at this time to undergo CT angiogram of the chest. Will order chest x-ray in the morning I will order lower extremity Dopplers and echocardiogram on 05/03/2021. A tighter the BiPAP machine to comfort and she stated that on BiPAP 17/7 with an inspiratory time of 0.5 was the most comfortable settings. 04/30 10:43 100% NRB with sats 91%, ABG 7.40/62/76. 04/30 12:15 BiPAP 12/5 100%, sats 98% 05/01 08:00 BiPAP 12/5, 100%, sats 92% 05/01 11:53 BiPAP 14/7, 75%, sats 91% 05/02 08:00 BiPAP 14/7, 75%, sats 88% 05/02 14:24 BiPAP 17/7, 90%, sats 93% 05/03 08:00 BiPAP 17/7, 90%, sats 94% (3) Obstructive sleep apnea on CPAP: Code(s): G47.33 - Obstructive sleep apnea (adult) (pediatric); Z99.89 - Dependence on other enabling machines and devices Status: Acute Assessment and Plan: 05/02 per pulmonary outpatient note patient on auto PAP 5-15 and a download compliance from 04/07/2020 per the note states average usage 6.9 hours per night, average pressure 11.5, AHI 0.5. Of note there is hypercarbic respiratory failure on presentation with a blood gas of 7.40/62/76 but this is in the setting of an acute COVID pneumonia. Will reassess but patient may she have chronic hypercarbic respiratory failure requiring BiPAP in the future. Currently require BiPAP as above. 05/03 I will attempt to obtain a recent download from patient's [employer] which is [employer]. Subjective Date/time seen: 05/03/21 10:33 Interval history: 05/02/2021: This is a new Pulmonary consult for COVID pneumonia with hypoxemic respiratory failure 66-year-old female with a history of former tobacco use with COPD on trelegy inhaler with severe apical predominant emphysema on her CT scan from 07/11/2016 and 01/31/2020, hypoxemic respiratory failure requiring 4 L nasal cannula, morbid obesity with obstructive sleep apnea requiring auto Pap 5-15 last seen in the Pulmonary Clinic for a virtual visit on 04/07/2020 and at that time she was maintained on trilogy, had a download compliance with her average use is 6.9 hours per night an average pressure of 11.5 and an AHI of 0.5. She received a J and J COVID vaccine in the early spring Of 2020. patient tells me for the last 9 months she has wearing her CPAP constantly with 4 L all day and all night. patient was to expose
[2021-05-03 13:58] LABS: Influenza Control Positive
--- NOTE | 2021-05-03 14:49 | PM.IMPN ---
Progress Note: A&P Assessment and Plan (1) Acute and chronic respiratory failure: Code(s): J96.20 - Acute and chronic respiratory failure, unspecified whether with hypoxia or hypercapnia Status: Acute Assessment and Plan: Secondary to COVID pneumonia. Pulmonary embolism is considered but seems less likely by history. If her oxygen requirement remains high a CTA of the chest would be prudent. 05/01/2021 interval history: patient is 66-year-old morbidly obese female with COVID-19 hypoxic on BiPAP and has difficulty with breathing I spoke with respiratory and they will adjust BiPAP setting patient was started on dexamethasone 6 mg q.day and remdesivir on 04/30, will add Lasix 40 mg IV as shown to improve oxygenation and COVID patients. will continue to monitor and there is no significant improvement will consult air carrier operations inspector further recommendation to follow. , 05/02/2021 interval history: patient is 66-year-old morbidly obese female with COVID-19 hypoxic on BiPAP and has difficulty with breathing I spoke with respiratory and they will adjust BiPAP setting patient was started on dexamethasone 6 mg q.day and remdesivir on 04/30, will add Lasix 40 mg IV as shown to improve oxygenation and COVID patients. today spoke with Dr. Lange air carrier operations inspector seen the patient added Tocilizumab, today patient states feeling better compared to when she arrived, patient states see wants to be DNR and no CPR, I called patient's Chang Castaneda [phone] and discussed with him code status and he agrees with DNR as the patient had spoken with him, her desire to be DNR, will continue to monitor and further recommendation to follow. 05/03/2021 interval history: patient is 66-year-old morbidly obese female with COVID-19 hypoxic on BiPAP and has difficulty with breathing I spoke with respiratory and they will adjust BiPAP setting patient was started on dexamethasone 6 mg q.day and remdesivir on 04/30, added Lasix 40 mg IV as shown to improve oxygenation and COVID patients. on 05/[address] Lange air carrier operations inspector seen the patient added Tocilizumab, on 05/02 patient stated she wants to be DNR and no CPR, I called patient's Chang Castaneda [phone] and discussed with him code status and he agrees with DNR as the patient had spoken with him, her desire to be DNR, today patient state feeling better compared to when she arrived, patient will be seen Dr. Simms will continue to monitor and further recommendation to follow. (2) Pneumonia due to COVID-19 virus: Code(s): U07.1 - COVID-19; J12.82 - Pneumonia due to coronavirus disease 2019 Status: Acute Assessment and Plan: She has been started on dexamethasone and remdesivir per protocol. Consider tocilizumab or baricitinib, inflammatory markers pending. (3) Elevated LFTs: Code(s): R79.89 - Other specified abnormal findings of blood chemistry Status: Acute Assessment and Plan: May be due to COVID. Will check hepatitis panel for completeness sake and monitor. (4) Obstructive sleep apnea on CPAP: Code(s): G47.33 - Obstructive sleep apnea (adult) (pediatric); Z99.89 - Dependence on other enabling machines and devices Status: Acute Assessment and Plan: Currently on BiPAP. (5) COPD with emphysema: Code(s): J43.9 - Emphysema, unspecified Status: Acute Assessment and Plan: No acute bronchospasm. Continue treatment as detailed above. (6) Diet-controlled diabetes mellitus: Code(s): E11.9 - Type 2 diabetes mellitus without complications Status: Acute Assessment and Plan: Initiate sliding scale insulin, Accu-Cheks, and hypoglycemic protocol. Hemoglobin A1c. Subjective Date/time seen: 05/03/21 14:49 05/01/2021 interval history: patient is 66-year-old morbidly obese female with COVID-19 hypoxic on BiPAP and has difficulty with breathing I spoke with respiratory and they karen
[2021-05-03 15:12] LABS: Glucose Point of Care 167 mg/dl (65-105)
[2021-05-03 17:16] LABS: Glucose Point of Care 139 mg/dl (65-105)
[2021-05-03 20:40] LABS: Glucose Point of Care 139 mg/dl (65-105)
--- NOTE | 2021-05-03 21:08 | ECG_ITS ---
Measurements Intervals [place] Rate: 144 P: [place]: 0 QRS: 51 QRSD: 83 T: 21 QT: 302 QTc: 468 Interpretive Statements ATRIAL FLUTTER/TACHYCARDIA WITH RAPID VENTRICULAR RESPONSE DELAYED PRECORDIAL R/S TRANSITION BORDERLINE ST-T WAVE ABNORMALITY- INFERIOR LEADS ABNORMAL ECG Electronically Signed On 05-07-2021 7:43:01 [employer] by Segun Kerr D.O.
[2021-05-03] MEDS: REMDESIVIR 100 MG/NS 250 ML 100 MG/250 ML BAG 250 MG IVPB (21:33)
[2021-05-03] MEDS: HYDROcodone/acetaminophen (*CRX) 5-325 MG TABLET 1 TAB PO (21:34)
[2021-05-04] VITALS (23 sets, daily range): BP systolic 142–152; BP diastolic 68–74; PULSE 75–117; RESP 18–28; TEMP 36.1–36.9; O2SAT 90–100
[2021-05-04 06:01] LABS: Basophils Percent Auto 0.3 % (0.2-1.2); Eosinophils Percent Auto 0.2 % (0-4.4); Hematocrit 38.8 % (37.0-47.0); Hemoglobin 11.4 g/dL (12.0-15.0); Immature Granulocyte Absolute 0.05 K/mm3 (0.00-0.031); Immature Granulocyte Percent A 0.9 % (0-0.5); Lymphocytes Absolute Auto 1.05 K/mm3 (0.9-3.2); Mean Corpuscular HGB Conc 29.4 g/dl (32-36); Mean Corpuscular Hemoglobin 26.8 pg (26-34); Mean Corpuscular Volume 91.1 fl (80-100); Mean Platelet Volume 10.2 fl (7.4-10.4); Monocytes Absolute Auto 0.9 K/mm3 (0.1-0.6); Monocytes Percent Auto 14.6 % (2.6-8.5); Neutrophils Absolute Auto 3.9 K/mm3 (1.3-6.7); Platelet Count Result 341 k/mm3 (150-375); Red Blood Count 4.26 M/mm3 (4.2-5.4); Red Cell Distribution Width 15.4 % (11.5-14.5); White Blood Count 5.8 K/mm3 (4.5-10.0)
[2021-05-04 06:09] LABS: INR 1.1; Prothrombin Time 13.8 Seconds (11.1-14.7)
[2021-05-04 06:25] LABS: Alanine Aminotransferase 29 U/L (4-35); Albumin Level 3.7 g/dL (3.5-5.1); Alkaline Phosphatase 68 U/L (38-126); Aspartate Amino Transferase 45 U/L (14-36); Bilirubin,Total 0.6 mg/dL (0.2-1.3); Blood Urea Nitrogen 18 mg/dL (7-17); Calcium 8.5 mg/dL (8.4-10.2); Carbon Dioxide > 40 mmol/L (22-30); Chloride 87 mmol/L (98-107); Estimated CRCL calculation 133 ml/min; Estimated Glomerular Filt Rate > 60; Glucose 112 mg/dL (65-110); Potassium 3.8 mmol/L (3.4-5.0); Sodium 137 mmol/L (137-145)
[2021-05-04] MEDS: ZAFIRLUKAST 20 MG TABLET PO ×2 (06:33→16:04)
--- NOTE | 2021-05-04 07:41 | ECG_ITS ---
Measurements Intervals [place] Rate: 80 P: -3 IL: 168 QRS: 47 QRSD: 94 T: 18 QT: 395 QTc: 457 Interpretive Statements SINUS RHYTHM BASELINE ARTIFACT- III, AVL, AVF NORMAL ECG Electronically Signed On 05-04-2021 12:06:31 RELIABILITY TECHNICIAN by Segun Kerr D.O.
[2021-05-04] MEDS: FLUTICASONE/UMECLIDIN/VILANTER 100-62.5-25 MCG ELLIPTA 1 PUFF INHALATION (08:27)
[2021-05-04] MEDS: ALPRAZolam (*CRX) 0.5 MG TABLET PO ×3 (08:33→16:04)
[2021-05-04] MEDS: DEXAMETHASONE SOD PHOS INJ 4 MG/ML VIAL 6 MG IV PUSH (08:33)
[2021-05-04] MEDS: ENOXAPARIN 40 MG/0.4 ML SYRINGE SUB-Q (08:34)
[2021-05-04] MEDS: FUROSEMIDE INJ 40 MG/4 ML VIAL IV PUSH (08:34)
[2021-05-04] MEDS: CITALOPRAM HYDROBROMIDE 20 MG TABLET PO (08:34)
[2021-05-04] MEDS: ATORVASTATIN 10 MG TABLET PO (08:34)
[2021-05-04] MEDS: ASPIRIN 81 MG ENTERIC TABLET PO (08:34)
[2021-05-04] MEDS: ONDANSETRON INJ 4 MG/2 ML VIAL IV PUSH ×3 (08:34→21:29)
[2021-05-04 08:51] LABS: Glucose Point of Care 97 mg/dl (65-105)
--- NOTE | 2021-05-04 10:10 | PM.PNPUL ---
Progress Note: A&P Assessment and Plan (1) Pneumonia due to COVID-19 virus: Code(s): U07.1 - COVID-19; J12.82 - Pneumonia due to coronavirus disease 2019 Status: Acute Assessment and Plan: 05/02 Patient tested positive for COVID-19 on 04/30 and started on remdesivir, dexamethasone on 04/30 and given tocilizumab on 05/02. S/P J and J vaccine spring 2020. - Remdesivir for 10 days Unless he should recover and tolerate room air with rest, ambulation and while sleeping. - Dexamethasone 6 mg IV for 10 days - Continuous pulse oximetry - Prone positioning as tolerated. - Avoid any fluid overload. - Trelegy inhaler for her COPD - Negative influenza swab. Keep saturations 90-94% with BiPAP now at 90%, if she fails increase FIO2 to 100% and then increase EPAP. I spoke to her and she is DNR and does not wish for CPR, defibrillation or intubation. 05/03 Patient clinically states that she feels better. Her breathing is better. She remains on BiPAP rate of 16, 17/7, 90% FiO2 with saturations 95%. Lower extremity Dopplers are negative for DVT. chest x-ray with stable or mild progression of her diffuse interstitial alveolar infiltrates. I will order CT angiogram of the chest to exclude PE. Continue her home management of COPD with trelegy 100/62.5/25 at 1 puff q.day and zafirlukast 20 BID, no wheezes now. 05/04 Patient states that she is clinically improving and breathing better. She remains on BiPAP with a rate of 16, 17/7 and 90% with saturations 95%. Her echocardiogram on 05/03 showed a LVEF of 55-60, grade 1 diastolic dysfunction, trace tricuspid regurgitation with an inability to measure pulmonary arterial systolic pressure, RV with normal size and function, RA with normal size. Diuresing with Lasix. Continue her home management of COPD with trelegy 100/62.5/25 at 1 puff q.day and zafirlukast 20 BID, no wheezes now. Will follow with you. (2) Acute and chronic respiratory failure: Code(s): J96.20 - Acute and chronic respiratory failure, unspecified whether with hypoxia or hypercapnia Status: Acute Assessment and Plan: Etiology of hypoxic respiratory failure is COVID pneumonia. chronic respiratory failure with ABG 7.40/62/76 on 04/30 with serum bicarb 37 related to COPD. BNP equal 125 New onset Afib and cardiology following. D-dimer is positive but she is clinically too unstable at this time to undergo CT angiogram of the chest. Will order chest x-ray in the morning I will order lower extremity Dopplers and echocardiogram on 05/03/2021. A tighter the BiPAP machine to comfort and she stated that on BiPAP 17/7 with an inspiratory time of 0.5 was the most comfortable settings. 04/30 10:43 100% NRB with sats 91%, ABG 7.40/62/76. 04/30 12:15 BiPAP 12/5 100%, sats 98% 05/01 08:00 BiPAP 12/, 100%, sats 92% 05/01 11:53 BiPAP 14/7, 75%, sats 91% 05/02 08:00 BiPAP 14/7, 75%, sats 88% 05/02 14:24 BiPAP 17/7, 90%, sats 93% 05/03 08:00 BiPAP 17/7, 90%, sats 94% 05/03 20:00 BiPAP 17/7, 90%, sats 95% 05/04 08:00 BiPAP 17/7, 90%, sats 94% (3) Obstructive sleep apnea on CPAP: Code(s): G47.33 - Obstructive sleep apnea (adult) (pediatric); Z99.89 - Dependence on other enabling machines and devices Status: Acute Assessment and Plan: 05/02 per pulmonary outpatient note patient on auto PAP 5-15 and a download compliance from 04/07/2020 per the note states average usage 6.9 hours per night, average pressure 11.5, AHI 0.5. Of note there is hypercarbic respiratory failure on presentation with a blood gas of 7.40//76 but this is in the setting of an acute COVID pneumonia. Will reassess but patient may she have chronic hypercarbic respiratory failure requiring BiPAP in the future. Currently require BiPAP as above. 05/03 I will attempt to obtain a recent download from patient's [employer] which is [employer]. 05/04 Download from 04/02/2021 through 05/01/2021 ( Admitted to hospital on 04/30 and
--- NOTE | 2021-05-04 12:13 | PM.IMPN ---
Progress Note: A&P Assessment and Plan (1) Acute and chronic respiratory failure: Code(s): J96.20 - Acute and chronic respiratory failure, unspecified whether with hypoxia or hypercapnia Status: Acute Assessment and Plan: Secondary to COVID pneumonia. Pulmonary embolism is considered but seems less likely by history. Pending Doppler lower extremity, I reviewed Echo no right ventricular dilatation. Pulmonology consult Continue BiPAP Patient is DNR DNI (2) Pneumonia due to COVID-19 virus: Code(s): U07.1 - COVID-19; J12.82 - Pneumonia due to coronavirus disease 2019 Status: Acute Assessment and Plan: She has been started on dexamethasone and remdesivir per protocol. recieved tocilizumab (3) Elevated LFTs: Code(s): R79.89 - Other specified abnormal findings of blood chemistry Status: Acute Assessment and Plan: Most likely related to COVID-19 (4) Obstructive sleep apnea on CPAP: Code(s): G47.33 - Obstructive sleep apnea (adult) (pediatric); Z99.89 - Dependence on other enabling machines and devices Status: Acute Assessment and Plan: Currently on BiPAP. (5) COPD with emphysema: Code(s): J43.9 - Emphysema, unspecified Status: Acute Assessment and Plan: No acute bronchospasm. Continue treatment as detailed above. (6) Diet-controlled diabetes mellitus: Code(s): E11.9 - Type 2 diabetes mellitus without complications Status: Acute Assessment and Plan: Initiate sliding scale insulin, Accu-Cheks, and hypoglycemic protocol. Hemoglobin A1c. (7) Leukocytosis: Code(s): D72.829 - Elevated white blood cell count, unspecified Status: Acute (8) Afib: Code(s): I48.91 - Unspecified atrial fibrillation Status: Acute Assessment and Plan: Given 1 dose of Cardizem Cardiology consult May benefit from full anticoagulation Subjective Date/time seen: 05/04/21 12:13 Interval history: 66-year-old female with a history of former tobacco use with COPD presented to the hospital with shortness of breath was found to have COVID-19 pneumonia patient was treated with dexamethasone remdesivir and tolicimab I discussed with pulmonology at home patient was using the CPAP machine for almost 20 hours out of 24 hours Patient feels better today Patient is DNR DNI Still complaining of shortness of breath Denies fever or chills no chest pain I am seeing the patient for COVID-19 pneumonia Exam Narrative: Alert Chest positive bilateral crackles Abdomen nontender nondistended CVS S1 + S2 Lower extremity minimal edema Objective Data Vital Signs Vital Signs: Vital Signs - 24 hr 05/03/21 14:00 05/03/21 16:00 05/03/21 18:00 Temperature 97.8 F Pulse Rate 93 95 98 Respiratory Rate 18 Blood Pressure 140/71 Pulse Oximetry 93 05/03/21 20:00 05/03/21 21:30 05/03/21 21:58 Temperature 98.4 F Pulse Rate 160 H 98 62 Respiratory Rate 24 H 18 Blood Pressure 148/77 H Pulse Oximetry 95 91 05/03/21 23:59 05/04/21 00:00 05/04/21 01:28 Temperature 98.3 F Pulse Rate 85 86 83 Respiratory Rate 24 H 24 H 20 Blood Pressure 139/80 Pulse Oximetry 95 95 95 05/04/21 02:00 05/04/21 04:00 05/04/21 06:00 Temperature 98.3 F Pulse Rate 82 91 91 Respiratory Rate 24 H Blood Pressure 142/69 H Pulse Oximetry 94 05/04/21 06:25 05/04/21 08:00 05/04/21 08:27 Temperature Pulse Rate 96 79 Respiratory Rate 19 23 H Blood Pressure Pulse Oximetry 94 94 94 05/04/21 08:56 05/04/21 11:26 05/04/21 12:00 Temperature 97.5 F L Pulse Rate 93 83 Respiratory Rate 28 H 21 H Blood Pressure 152/68 H Pulse Oximetry 100 94 94 Intake/Output Intake/Output: Intake & Output 05/01/21 05/02/21 05/03/21 05/04/21 23:59 23:59 23:59 23:59 Intake Total 1020 1520 1350 Output Total 1999 825 2600 1000 Balance -980 695 -1250 -1000 Meds/Results Medications:
[2021-05-04 12:27] LABS: Glucose Point of Care 153 mg/dl (65-105)
[2021-05-04] MEDS: HYDROcodone/acetaminophen (*CRX) 5-325 MG TABLET 1 TAB PO (16:04)
[2021-05-04 16:27] LABS: Glucose Point of Care 148 mg/dl (65-105)
[2021-05-04 21:02] LABS: Glucose Point of Care 108 mg/dl (65-105)
[2021-05-04] MEDS: REMDESIVIR 100 MG/NS 250 ML 100 MG/250 ML BAG 250 MG IVPB (21:29)
[2021-05-04] MEDS: MORPHINE SULFATE (*CRX) 4 MG/ML INJ IV PUSH (21:29)
[2021-05-05] VITALS (19 sets, daily range): BP systolic 110–150; BP diastolic 62–87; PULSE 71–170; RESP 18–24; TEMP 35.6–36.6; O2SAT 90–96
[2021-05-05] MEDS: HYDROcodone/acetaminophen (*CRX) 5-325 MG TABLET 1 TAB PO ×2 (01:05→20:32)
[2021-05-05] MEDS: ZAFIRLUKAST 20 MG TABLET PO ×2 (02:58→17:40)
[2021-05-05] MEDS: ONDANSETRON INJ 4 MG/2 ML VIAL IV PUSH ×3 (02:58→21:31)
[2021-05-05 05:47] LABS: Basophils Percent Auto 0.3 % (0.2-1.2); Eosinophils Percent Auto 0.3 % (0-4.4); Hematocrit 41.7 % (37.0-47.0); Hemoglobin 12.6 g/dL (12.0-15.0); Immature Granulocyte Absolute 0.05 K/mm3 (0.00-0.031); Immature Granulocyte Percent A 0.5 % (0-0.5); Lymphocytes Absolute Auto 1.51 K/mm3 (0.9-3.2); Lymphocytes Percent Auto 16.3 % (18.3-44.2); Mean Corpuscular HGB Conc 30.2 g/dl (32-36); Mean Corpuscular Hemoglobin 26.6 pg (26-34); Mean Corpuscular Volume 88.2 fl (80-100); Mean Platelet Volume 10.3 fl (7.4-10.4); Monocytes Absolute Auto 1.3 K/mm3 (0.1-0.6); Monocytes Percent Auto 13.6 % (2.6-8.5); Neutrophils Absolute Auto 6.4 K/mm3 (1.3-6.7); Platelet Count Result 443 k/mm3 (150-375); Red Blood Count 4.73 M/mm3 (4.2-5.4); Red Cell Distribution Width 15.1 % (11.5-14.5); White Blood Count 9.3 K/mm3 (4.5-10.0)
[2021-05-05 06:24] LABS: Alanine Aminotransferase 27 U/L (4-35); Alkaline Phosphatase 72 U/L (38-126); Aspartate Amino Transferase 39 U/L (14-36); Bilirubin,Total 0.6 mg/dL (0.2-1.3); Blood Urea Nitrogen 15 mg/dL (7-17); Carbon Dioxide > 40 mmol/L (22-30); Chloride 86 mmol/L (98-107); Estimated CRCL calculation 65 ml/min; Estimated Glomerular Filt Rate > 60; Glucose 109 mg/dL (65-110); Potassium 3.5 mmol/L (3.4-5.0); Sodium 132 mmol/L (137-145)
[2021-05-05] MEDS: ATORVASTATIN 10 MG TABLET PO (08:32)
[2021-05-05] MEDS: DEXAMETHASONE SOD PHOS INJ 4 MG/ML VIAL 6 MG IV PUSH (08:32)
[2021-05-05] MEDS: CITALOPRAM HYDROBROMIDE 20 MG TABLET PO (08:32)
[2021-05-05] MEDS: FUROSEMIDE INJ 40 MG/4 ML VIAL IV PUSH (08:32)
[2021-05-05] MEDS: ENOXAPARIN 40 MG/0.4 ML SYRINGE SUB-Q (08:33)
[2021-05-05] MEDS: ASPIRIN 81 MG ENTERIC TABLET PO (08:33)
[2021-05-05] MEDS: ALPRAZolam (*CRX) 0.5 MG TABLET PO (08:34)
[2021-05-05 08:39] LABS: Glucose Point of Care 100 mg/dl (65-105)
[2021-05-05] MEDS: FLUTICASONE/UMECLIDIN/VILANTER 100-62.5-25 MCG ELLIPTA 1 PUFF INHALATION (09:01)
[2021-05-05 10:26] LABS: Prothrombin Time 13.4 Seconds (11.1-14.7)
--- NOTE | 2021-05-05 10:30 | PM.CNCAR ---
Assessment and Plan Assessment and plan (1) Paroxysmal atrial fibrillation with RVR: Code(s): I48.0 - Paroxysmal atrial fibrillation Status: Acute Assessment and Plan: No prior known history of documentation of atrial fibrillation. Patient generally asymptomatic. CHADS2 Vasc score 4. Systemic anticoagulation advised. Will begin Eliquis 5 mg b.i.d. this evening. Discontinue enoxaparin. May discontinue aspirin. Add AV deepthi blocking agent diltiazem 120 mg daily for suppression. Will try to avoid beta-coby, amiodarone given severe underlying lung disease. Explained embolic stroke risk, pathophysiology to the patient. Patient verbalized understanding. All questions answered to her satisfaction. No question acute on chronic respiratory failure along with her additional comorbidities contribute to development of atrial fibrillation in setting of COVID pneumonia. Monitor electrolytes and renal function closely. Follow H&H and monitor for bleeding. (2) Paroxysmal SVT (supraventricular tachycardia): Code(s): I47.1 - Supraventricular tachycardia Status: Acute Assessment and Plan: This appears to be separate from identified atrial fibrillation with rapid ventricular response. Given heart rate of approximately 170 beats per minute very unlikely to be atrial flutter. Continue telemetry. Will add calcium channel coby therapy for potential suppression. (3) Pneumonia due to COVID-19 virus: Code(s): U07.1 - COVID-19; J12.82 - Pneumonia due to coronavirus disease 2018 Status: Acute Assessment and Plan: Continue supportive care, O2 supplementation, BiPAP support as required. BNP 125 on admission. Chest x-ray consistent with pneumonia versus pulmonary edema. Patient does not appear to be in significant clinical decompensated heart failure. Reported improvement after initiation of IV Lasix, however. Continue Lasix 40 mg IV daily for now provided renal function electrolytes remained stable with plans to transition to oral regimen as appropriate. Keep potassium around 4.0 and magnesium around 2.0 respectively. Recheck magnesium level. (4) Acute on chronic respiratory failure with hypoxia: Code(s): J96.21 - Acute and chronic respiratory failure with hypoxia Status: Acute Assessment and Plan: Patient still requires significant O2 supplementation and noninvasive positive-pressure ventilation. Patient remains critically ill in isolation for COVID pneumonia. Appreciate pulmonology involvement and recommendations. Elevated D-dimer with plans for CT angiogram of the chest. Systemic anticoagulation will be initiated, however, if pulmonary embolism noted would initiate full-dose enoxaparin 1 milligram/kilogram subcutaneous q.12 hours versus heparin infusion approximately 48 hours prior to initiation of NOAC PE dosing. Lower extremity venous Dopplers negative for DVT. History of Present Illness History of Present Illness Consult date/time: Date of service: 05/05/21 10:30 Cardiology consultation at the request of Dr. Brennan of the [facility] service for opinion regarding atrial fibrillation with RVR. Requesting physician: Sonia Brennan M.A., MD Consult reason: atrial fibrillation Reason For Visit: Acute respiratory failure/Covid PUI Narrative: Patient is a pleasant 66-year-old female with past medical history significant for chronic hypoxic respiratory failure 5 L O2 via nasal cannula at home, CESAR on CPAP, history of COPD/emphysema, type 2 diabetes mellitus, and dyslipidemia was admitted 04/30/2021 secondary to worsening shortness of breath. It is noted patient had several members of her family positive for COVID quarantine in her home. Patient was complaining of increased productive cough poor appetite, sweats and subjective fever due to severe hypoxia despite 5 L O2 EMS was summoned she was brought to [facility]. She was confirmed to have positive COVI
--- NOTE | 2021-05-05 10:39 | PM.PNPUL ---
Progress Note: A&P Assessment and Plan (1) Pneumonia due to COVID-19 virus: Code(s): U07.1 - COVID-19; J12.82 - Pneumonia due to coronavirus disease 2019 Status: Acute Assessment and Plan: 05/02 Patient tested positive for COVID-19 on 04/30 and started on remdesivir, dexamethasone on 04/30 and given tocilizumab on 05/02. S/P J and J vaccine spring 2020. - Remdesivir for 10 days Unless he should recover and tolerate room air with rest, ambulation and while sleeping. - Dexamethasone 6 mg IV for 10 days - Continuous pulse oximetry - Prone positioning as tolerated. - Avoid any fluid overload. - Trelegy inhaler for her COPD - Negative influenza swab. Keep saturations 90-94% with BiPAP now at 90%, if she fails increase FIO2 to 100% and then increase EPAP. I spoke to her and she is DNR and does not wish for CPR, defibrillation or intubation. 05/03 Patient clinically states that she feels better. Her breathing is better. She remains on BiPAP rate of 16, 17/7, 90% FiO2 with saturations 95%. Lower extremity Dopplers are negative for DVT. chest x-ray with stable or mild progression of her diffuse interstitial alveolar infiltrates. I will order CT angiogram of the chest to exclude PE. Continue her home management of COPD with trelegy 100/62.5/25 at 1 puff q.day and zafirlukast 20 BID, no wheezes now. 05/04 Patient states that she is clinically improving and breathing better. She remains on BiPAP with a rate of 16, 17/7 and 90% with saturations 95%. Her echocardiogram on 05/03 showed a LVEF of 55-60, grade 1 diastolic dysfunction, trace tricuspid regurgitation with an inability to measure pulmonary arterial systolic pressure, RV with normal size and function, RA with normal size. Diuresing with Lasix. Continue her home management of COPD with trelegy 100/62.5/25 at 1 puff q.day and zafirlukast 20 BID, no wheezes now. 05/05 Patient states clinically she feels well. She remains on BiPAP with a rate of 16, 17/7 and 85% since last night with saturations currently 91%. She continues to diurese with Lasix and noninvasive ventilation. She does states she feels well and would like to try to take the mask off today. Her creatinine is 0.7, white blood cell count 9.3, and she is afebrile. CTA later today. Will follow with you. (2) Acute and chronic respiratory failure: Code(s): J96.20 - Acute and chronic respiratory failure, unspecified whether with hypoxia or hypercapnia Status: Acute Assessment and Plan: Etiology of hypoxic respiratory failure is COVID pneumonia. chronic respiratory failure with ABG 7.40//76 on 04/30 with serum bicarb 37 related to COPD. BNP equal 125 New onset Afib and cardiology following. D-dimer is positive but she is clinically too unstable at this time to undergo CT angiogram of the chest. Will order chest x-ray in the morning I will order lower extremity Dopplers and echocardiogram on 05/03/2021. A tighter the BiPAP machine to comfort and she stated that on BiPAP 17/7 with an inspiratory time of 0.5 was the most comfortable settings. 04/30 10:43 100% NRB with sats 91%, ABG 7.40/62/76. 04/30 12:15 BiPAP 12/5 100%, sats 98% 05/01 08:00 BiPAP 12/5, 100%, sats 92% 05/01 11:53 BiPAP 14/7, 75%, sats 91% 05/02 08:00 BiPAP 14/7, 75%, sats 88% 05/02 14:24 BiPAP 17/7, 90%, sats 93% 05/03 08:00 BiPAP 17/7, 90%, sats 94% 05/03 20:00 BiPAP 17/7, 90%, sats 95% 05/04 08:00 BiPAP 17/7, 90%, sats 94% 05/05 08:00 BiPAP 17/7, 85%, sats 91% (3) Obstructive sleep apnea on CPAP: Code(s): G47.33 - Obstructive sleep apnea (adult) (pediatric); Z99.89 - Dependence on other enabling machines and devices Status: Acute Assessment and Plan: 05/02 per pulmonary outpatient note patient on auto PAP 5-15 and a download compliance from 04/07/2020 per the note states average usage 6.9 hours per night, average pressure 11.5, AHI 0.5. Of note there is hypercarbic respiratory failure on
--- NOTE | 2021-05-05 11:12 | PM.IMPN ---
Progress Note: A&P Assessment and Plan (1) Acute and chronic respiratory failure: Code(s): J96.20 - Acute and chronic respiratory failure, unspecified whether with hypoxia or hypercapnia Status: Acute Assessment and Plan: Secondary to COVID pneumonia. Pulmonary embolism is considered but seems less likely by history. I reviewed Echo right ventricular dilatation. Most likely related to pulmonary hypertension Pulmonology consult Continue BiPAP Patient is DNR DNI (2) Pneumonia due to COVID-19 virus: Code(s): U07.1 - COVID-19; J12.82 - Pneumonia due to coronavirus disease 2018 Status: Acute Assessment and Plan: She has been started on dexamethasone and remdesivir per protocol. recieved tocilizumab (3) Elevated LFTs: Code(s): R79.89 - Other specified abnormal findings of blood chemistry Status: Acute Assessment and Plan: Most likely related to COVID-19 (4) Obstructive sleep apnea on CPAP: Code(s): G47.33 - Obstructive sleep apnea (adult) (pediatric); Z99.89 - Dependence on other enabling machines and devices Status: Acute Assessment and Plan: Currently on BiPAP. (5) COPD with emphysema: Code(s): J43.9 - Emphysema, unspecified Status: Acute Assessment and Plan: No acute bronchospasm. Continue treatment as detailed above. (6) Diet-controlled diabetes mellitus: Code(s): E11.9 - Type 2 diabetes mellitus without complications Status: Acute Assessment and Plan: Continue sliding scale insulin, Accu-Cheks, and hypoglycemic protocol. Hemoglobin A1c. (7) Leukocytosis: Code(s): D72.829 - Elevated white blood cell count, unspecified Status: Acute (8) Afib: Code(s): I48.91 - Unspecified atrial fibrillation Status: Acute Assessment and Plan: Given 1 dose of Cardizem Cardiology consult May benefit from full anticoagulation Subjective Date/time seen: 05/05/21 11:12 Interval history: 66-year-old female with a history of former tobacco use with COPD presented to the hospital with shortness of breath was found to have COVID-19 pneumonia patient was treated with dexamethasone remdesivir and tolicimab I discussed with pulmonology at home patient was using the CPAP machine for almost 20 hours out of 24 hours most likely patient has CPAP dependent Patient feels better today patient does not want intubation Still complaining of shortness of breath Denies fever or chills no chest pain I am seeing the patient for COVID-19 pneumonia Exam Narrative: Alert Chest positive bilateral crackles Abdomen nontender nondistended CVS S1 + S2 Lower extremity minimal edema Objective Data Vital Signs Vital Signs: Vital Signs - 24 hr 05/04/21 11:26 05/04/21 12:00 05/04/21 12:31 Temperature 97.0 F L Pulse Rate 83 81 81 Respiratory Rate 21 H 22 H Blood Pressure 147/73 H Pulse Oximetry 94 94 96 05/04/21 14:00 05/04/21 14:25 05/04/21 15:55 Temperature Pulse Rate 84 75 88 Respiratory Rate 22 H 26 H Blood Pressure Pulse Oximetry 100 93 05/04/21 16:00 05/04/21 16:08 05/04/21 18:00 Temperature 97.8 F Pulse Rate 93 94 91 Respiratory Rate 25 H Blood Pressure 151/71 H Pulse Oximetry 94 95 05/04/21 20:00 05/04/21 20:59 05/04/21 22:00 Temperature 97.9 F Pulse Rate 83 79 82 Respiratory Rate 18 18 Blood Pressure 149/69 H Pulse Oximetry 95 95 05/04/21 23:18 05/05/21 00:00 05/05/21 00:04 Temperature 98.4 F Pulse Rate 117 H 132 H 71 Respiratory Rate 24 H 20 20 Blood Pressure 145/74 H Pulse Oximetry 92 92 92 05/05/21 02:00 05/05/21 04:00 05/05/21 04:05 Temperature 97.4 F L Pulse Rate 81 81 81 Respiratory Rate 18 18 Blood Pressure 128/87 Pulse Oximetry 93 93 05/05/21 06:00 05/05/21 08:00 05/05/21 08:43 Temperature 97.6 F Pulse Rate 85 81 81 Respiratory Rate 18 Blood Pressure 135/72 Pulse Oximetry 91 94
[2021-05-05 12:15] LABS: Glucose Point of Care 165 mg/dl (65-105)
[2021-05-05] MEDS: LORazepam (*CRX) 0.5 MG TABLET PO ×2 (12:24→17:40)
[2021-05-05 17:09] LABS: Glucose Point of Care 183 mg/dl (65-105)
[2021-05-05] MEDS: APIXABAN 5 MG TABLET PO (20:32)
[2021-05-05] MEDS: REMDESIVIR 100 MG/NS 250 ML 100 MG/250 ML BAG 250 MG IVPB (20:33)
[2021-05-05 20:57] LABS: Glucose Point of Care 144 mg/dl (65-105)
[2021-05-06] VITALS (18 sets, daily range): BP systolic 107–153; BP diastolic 52–85; PULSE 79–178; RESP 12–22; TEMP 36.1–37.1; O2SAT 90–99
--- NOTE | 2021-05-06 00:59 | PCRCNOTE ---
Patient refused Bipap at [facility]. Patient stated she wanted to stay on the 15lpm cannula and NRB mask.
[2021-05-06] MEDS: PANTOPRAZOLE SODIUM IV 40 MG VIAL IV PUSH ×2 (01:10→10:35)
--- NOTE | 2021-05-06 03:21 | PCRCNOTE ---
Patient refused Bipap at [facility]. Wants to wear higher flow cannula and NRB mask.
[2021-05-06 05:47] LABS: Basophils Percent Auto 0.2 % (0.2-1.2); Eosinophils Percent Auto 0.3 % (0-4.4); Hemoglobin 12.3 g/dL (12.0-15.0); Immature Granulocyte Absolute 0.08 K/mm3 (0.00-0.031); Immature Granulocyte Percent A 0.8 % (0-0.5); Lymphocytes Absolute Auto 1.17 K/mm3 (0.9-3.2); Lymphocytes Percent Auto 12.4 % (18.3-44.2); Mean Corpuscular HGB Conc 30.8 g/dl (32-36); Mean Corpuscular Hemoglobin 27.5 pg (26-34); Mean Corpuscular Volume 89.5 fl (80-100); Mean Platelet Volume 9.9 fl (7.4-10.4); Monocytes Absolute Auto 1.2 K/mm3 (0.1-0.6); Monocytes Percent Auto 12.3 % (2.6-8.5); Platelet Count Result 434 k/mm3 (150-375); Red Blood Count 4.47 M/mm3 (4.2-5.4); Red Cell Distribution Width 15.3 % (11.5-14.5); White Blood Count 9.4 K/mm3 (4.5-10.0)
[2021-05-06 06:03] LABS: INR 1.3; Prothrombin Time 16.1 Seconds (11.1-14.7)
[2021-05-06 06:06] LABS: Alanine Aminotransferase 23 U/L (4-35); Albumin Level 3.8 g/dL (3.5-5.1); Alkaline Phosphatase 53 U/L (38-126); Aspartate Amino Transferase 37 U/L (14-36); Bilirubin,Total 0.9 mg/dL (0.2-1.3); Blood Urea Nitrogen 18 mg/dL (7-17); Calcium 8.6 mg/dL (8.4-10.2); Carbon Dioxide > 40 mmol/L (22-30); Chloride 88 mmol/L (98-107); Estimated CRCL calculation 74 ml/min; Estimated Glomerular Filt Rate > 60; Glucose 108 mg/dL (65-110); Potassium 3.9 mmol/L (3.4-5.0); Sodium 133 mmol/L (137-145)
[2021-05-06] MEDS: ZAFIRLUKAST 20 MG TABLET PO (06:41)
[2021-05-06 09:02] LABS: Glucose Point of Care 103 mg/dl (65-105)
[2021-05-06] MEDS: FLUTICASONE/UMECLIDIN/VILANTER 100-62.5-25 MCG ELLIPTA 1 PUFF INHALATION (09:28)
[2021-05-06] MEDS: CITALOPRAM HYDROBROMIDE 20 MG TABLET PO (10:33)
[2021-05-06] MEDS: ATORVASTATIN 10 MG TABLET PO (10:34)
[2021-05-06] MEDS: APIXABAN 5 MG TABLET PO ×2 (10:34→21:12)
[2021-05-06] MEDS: ASPIRIN 81 MG ENTERIC TABLET PO (10:34)
[2021-05-06] MEDS: DEXAMETHASONE SOD PHOS INJ 4 MG/ML VIAL 6 MG IV PUSH (10:35)
[2021-05-06] MEDS: FUROSEMIDE INJ 40 MG/4 ML VIAL IV PUSH (10:35)
[2021-05-06] MEDS: ONDANSETRON HCL ODT 4 MG TABLET PO (11:12)
[2021-05-06] MEDS: LORazepam (*CRX) 0.5 MG TABLET PO ×2 (11:14→16:30)
[2021-05-06] MEDS: PANTOPRAZOLE 40 MG TABLET PO (11:57)
[2021-05-06] MEDS: HYDROcodone/acetaminophen (*CRX) 5-325 MG TABLET 1 TAB PO ×3 (12:04→21:13)
[2021-05-06 12:59] LABS: Glucose Point of Care 110 mg/dl (65-105)
--- NOTE | 2021-05-06 14:35 | PM.PNPUL ---
Progress Note: A&P Assessment and Plan (1) Acute on chronic respiratory failure with hypoxia: Code(s): J96.21 - Acute and chronic respiratory failure with hypoxia Status: Acute Assessment and Plan: respiratory status unchanged over the last 24 hours. The patient tolerating BiPAP well at 14/7 cm of water pressure , still requiring high FiO2. Continue with current regiment of dexamethasone remdesivir, monitor respiratory status, D-dimers CRP. (2) Obstructive sleep apnea on CPAP: Code(s): G47.33 - Obstructive sleep apnea (adult) (pediatric); Z99.89 - Dependence on other enabling machines and devices Status: Acute (3) Pneumonia due to COVID-19 virus: Code(s): U07.1 - COVID-19; J12.82 - Pneumonia due to coronavirus disease 2019 Status: Acute (4) COPD with emphysema: Qualifiers: Emphysema type: centrilobular Qualified Code(s): J43.2 - Centrilobular emphysema Code(s): J43.9 - Emphysema, unspecified Status: Acute Subjective Date/time seen: 05/06/21 14:35 patient with a emphysema, COVID 19 pneumonia currently on BiPAP support and high-flow oxygen treatment. She has had no new respiratory symptoms. Shortness of breath about the same. Has mild cough with no sputum production. She has no wheezing. Recent chest CT showed emphysema and extensive infiltrates related to COVID-19 infection. No pulmonary embolism. Review of Systems Review of Systems: All systems reviewed & are unremarkable except as noted in HPI and below (below.) Exam Narrative: GENERAL APPEARANCE: Well developed, well nourished, alert and cooperative, and appears to be in mild respiratory distress while on BiPAP support SKIN: Inspection of the skin reveals no rashes, ulcerations or petechiae. HEENT: Sclerae anicteric and conjunctivae pink and moist. Extraocular movements were intact and pupils were equal, round. NECK: Supple. There was no thyroid enlargement, and no tenderness, or masses were felt. CHEST: Normal AP diameter and normal contour without any kyphoscoliosis. LUNGS: Distant breath sounds anteriorly, rare crackles at bases posteriorly no wheezing. CARDIAC: There was a regular rate and rhythm without any murmurs, gallops, rubs. ABDOMEN: Soft and nontender with normal bowel sounds. There was no organomegaly. LYMPH NODES: No lymphadenopathy was appreciated in the neck. EXTREMITIES: No cyanosis, clubbing or edema. NEUROLOGIC: Alert and oriented x 3. Normal affect. Objective Data Vital Signs Vital Signs: Vital Signs - 24 hr 05/05/21 16:00 05/05/21 17:42 05/05/21 18:00 Temperature 35.6 C L Pulse Rate 95 90 99 Respiratory Rate 22 H Blood Pressure 141/63 H Pulse Oximetry 91 96 05/05/21 20:00 05/05/21 22:00 05/05/21 23:41 Temperature 36.3 C L 36.6 C Pulse Rate 112 H 88 98 Respiratory Rate 24 H 22 H Blood Pressure 110/79 140/67 Pulse Oximetry 90 90 05/06/21 00:00 05/06/21 02:00 05/06/21 04:00 Temperature 36.3 C L Pulse Rate 86 79 83 Respiratory Rate 22 H 20 Blood Pressure 142/56 H Pulse Oximetry 90 99 05/06/21 06:00 05/06/21 08:00 05/06/21 09:28 Temperature 36.5 C Pulse Rate 80 80 Respiratory Rate 12 Blood Pressure 153/61 H Pulse Oximetry 91 91 05/06/21 10:00 05/06/21 12:00 Temperature 37.1 C Pulse Rate 98 82 Respiratory Rate 12 Blood Pressure 144/68 H Pulse Oximetry 94 Intake/Output Intake/Output: Intake & Output 05/03/21 05/04/21 05/05/21 05/06/21 23:59 23:59 23:59 23:59 Intake Total 1350 0 600 Output Total 2600 2950 3250 850 Balance -1250 -2950 -2650 -850 Meds/Results Medications: Active Medications Generic Name Dose Route Start Last Admin Trade Name Freq PRN Reason Stop Dose Admin Acetaminophen 650 mg 04/30/21 13:15 Acetaminophen 325 Mg Tablet PO Q4H PRN Mild Pain (1-3) or Fever Hydrocodone Bitart/Acetaminophen 1 tab 04/30/21 13:15 05/06/21 12:04 Hydrocodone/Acetaminophen (*Crx)
--- NOTE | 2021-05-06 15:21 | PM.IMPN ---
Progress Note: A&P Assessment and Plan (1) Acute and chronic respiratory failure: Code(s): J96.20 - Acute and chronic respiratory failure, unspecified whether with hypoxia or hypercapnia Status: Acute Assessment and Plan: Secondary to COVID pneumonia. Pulmonology consult Continue BiPAP Patient is DNR DNI (2) Pneumonia due to COVID-19 virus: Code(s): U07.1 - COVID-19; J12.82 - Pneumonia due to coronavirus disease 2019 Status: Acute Assessment and Plan: She has been started on dexamethasone and remdesivir per protocol. recieved tocilizumab (3) Elevated LFTs: Code(s): R79.89 - Other specified abnormal findings of blood chemistry Status: Acute Assessment and Plan: Most likely related to COVID-19 (4) Obstructive sleep apnea on CPAP: Code(s): G47.33 - Obstructive sleep apnea (adult) (pediatric); Z99.89 - Dependence on other enabling machines and devices Status: Acute Assessment and Plan: Currently on BiPAP. (5) COPD with emphysema: Qualifiers: Emphysema type: centrilobular Qualified Code(s): J43.2 - Centrilobular emphysema Code(s): J43.9 - Emphysema, unspecified Status: Acute Assessment and Plan: No acute bronchospasm. Continue treatment as detailed above. (6) Diet-controlled diabetes mellitus: Code(s): E11.9 - Type 2 diabetes mellitus without complications Status: Acute Assessment and Plan: Continue sliding scale insulin, Accu-Cheks, and hypoglycemic protocol. Hemoglobin A1c. (7) Leukocytosis: Code(s): D72.829 - Elevated white blood cell count, unspecified Status: Acute Assessment and Plan: Pt describes urinary symptoms order UA order rocephin iv for empiric treatment (8) Afib: Code(s): I48.91 - Unspecified atrial fibrillation Status: Acute Assessment and Plan: continue to monitor with tele Subjective Date/time seen: 05/06/21 15:21 Interval history: 66-year-old female with a history of former tobacco use with COPD presented to the hospital with shortness of breath was found to have COVID-19 pneumonia patient was treated with dexamethasone remdesivir and tolicimab Pt seen by pulmologist pt is on 15 liters high flow pt not wanting intubation Review of Systems Review of Systems: All systems reviewed & are unremarkable except as noted in HPI and below Exam Narrative: Alert Chest positive bilateral crackles Abdomen nontender nondistended CVS S1 + S2 Lower extremity minimal edema Objective Data Vital Signs Vital Signs: Vital Signs - 24 hr 05/05/21 16:00 05/05/21 17:42 05/05/21 18:00 Temperature 35.6 C L Pulse Rate 95 90 99 Respiratory Rate 22 H Blood Pressure 141/63 H Pulse Oximetry 91 96 05/05/21 20:00 05/05/21 22:00 05/05/21 23:41 Temperature 36.3 C L 36.6 C Pulse Rate 112 H 88 98 Respiratory Rate 24 H 22 H Blood Pressure 110/79 140/67 Pulse Oximetry 90 90 05/06/21 00:00 05/06/21 02:00 05/06/21 04:00 Temperature 36.3 C L Pulse Rate 86 79 83 Respiratory Rate 22 H 20 Blood Pressure 142/56 H Pulse Oximetry 90 99 05/06/21 06:00 05/06/21 08:00 05/06/21 09:28 Temperature 36.5 C Pulse Rate 80 80 Respiratory Rate 12 Blood Pressure 153/61 H Pulse Oximetry 91 91 05/06/21 10:00 05/06/21 12:00 05/06/21 14:00 Temperature 37.1 C Pulse Rate 98 94 92 Respiratory Rate 12 Blood Pressure 144/68 H Pulse Oximetry 94 Intake/Output Intake/Output: Intake & Output 05/03/21 05/04/21 05/05/21 05/06/21 23:59 23:59 23:59 23:59 Intake Total 1350 0 600 Output Total 2600 2950 3250 850 Balance -1250 -2950 -2650 -850 Meds/Results Medications: Active Medications Generic Name Dose Route Start Last Admin Trade Name Freq PRN Reason Stop Dose Admin Acetaminophen 650 mg 04/30/21 13:15 Acetaminophen 325 Mg Tablet PO Q4H PRN Mild Pain (1-3) or Fev
[2021-05-06 16:24] LABS: Alanine Aminotransferase 25 U/L (4-35); Albumin Level 4.1 g/dL (3.5-5.1); Alkaline Phosphatase 67 U/L (38-126); Aspartate Amino Transferase 34 U/L (14-36); Bilirubin,Total 0.8 mg/dL (0.2-1.3); Blood Urea Nitrogen 18 mg/dL (7-17); Calcium 8.8 mg/dL (8.4-10.2); Carbon Dioxide > 40 mmol/L (22-30); Chloride 87 mmol/L (98-107); Estimated CRCL calculation 65 ml/min; Estimated Glomerular Filt Rate > 60; Glucose 118 mg/dL (65-110); Potassium 3.7 mmol/L (3.4-5.0); Sodium 135 mmol/L (137-145)
[2021-05-06 16:33] LABS: Glucose Point of Care 106 mg/dl (65-105)
--- NOTE | 2021-05-06 17:10 | ECG_ITS ---
Measurements Intervals [place] Rate: 126 P: MT: 0 QRS: 53 QRSD: 76 T: 28 QT: 299 QTc: 434 Interpretive Statements ATRIAL FLUTTER/TACHYCARDIA WITH RAPID VENTRICULAR RESPONSE BORDERLINE ST-T WAVE ABNORMALITY- INFERIOR LEADS BASELINE ARTIFACT- I, II, III, AVR, AVL, AVF ABNORMAL ECG Electronically Signed On 05-07-2021 7:43:40 [employer] by Segun Kerr D.O.
[2021-05-06] MEDS: METOPROLOL TARTRATE INJ 5 MG/5 ML VIAL IV PUSH (17:22)
[2021-05-06] MEDS: ONDANSETRON INJ 4 MG/2 ML VIAL IV PUSH (17:33)
[2021-05-06] MEDS: cefTRIAXone 2 GM in SODIUM CHLORIDE 0.9% IV 100 ML 200 ML IVPB (17:52)
[2021-05-06 18:15] LABS: Add Urine Microscopic? YES; Appearance Urine Clear (Clear); Bacteria Urine Trace /hpf; Bilirubin Urine Negative (Negative); Blood Urine 1+ (Negative); Color Urine Straw (Yellow); Glucose Urine UA Negative (Negative); Ketones Urine Trace mg/dL (Negative); Leukocyte Esterase Ur Negative LEU/UL (Negative); Mucus Urine Rare /lpf; Nitrate Urine Negative (Negative); Protein Urine Negative (Negative); Specific Grav Ur 1.008 (1.001-1.035); Urobilinogen Urine Negative mg/dL (<2.0); WBC Urine 0-3 /hpf
[2021-05-06] MEDS: REMDESIVIR 100 MG/NS 250 ML 100 MG/250 ML BAG 250 MG IVPB (21:12)
[2021-05-06] MEDS: PROCHLORPERAZINE EDISYLATE 10 MG/2 ML VIAL IV PUSH (21:13)
[2021-05-07] VITALS (17 sets, daily range): BP systolic 108–137; BP diastolic 54–71; PULSE 91–165; RESP 16–24; TEMP 36.2–37.6; O2SAT 90–100
[2021-05-07] MEDS: ZAFIRLUKAST 20 MG TABLET PO ×2 (05:31→16:50)
--- NOTE | 2021-05-07 05:31 | PC.NURSE ---
patient was instructed to relax and not get up. her o2 sats drop into the low 80's and her heart rate goes up to 180's. she argues that she has to sit on the side of the bed for several different reasons. she said that she had to throw up. once she was sitting up she said that it was just sputum that she wanted to cough up. she had us put 6 covers on her because she was freezing. moments later she said that she was sweating and wanted all the covers off and she wanted us to feel her legs, neck and her back all over it to see if it was wet. she wanted a new gown because she was sweating. it was done finally convensed her to get back to bed and relax. when she did her heart rate went down to 130's. she then wanted us to start putting covers on her, because she was cold. she said that she had farted a couple times and wanted me to get down and check to see if she had farted or pood.
[2021-05-07 07:24] LABS: Basophils Percent Auto 0.2 % (0.2-1.2); Eosinophils Percent Auto 0.1 % (0-4.4); Hematocrit 45.5 % (37.0-47.0); Hemoglobin 13.5 g/dL (12.0-15.0); Immature Granulocyte Absolute 0.07 K/mm3 (0.00-0.031); Immature Granulocyte Percent A 0.5 % (0-0.5); Lymphocytes Absolute Auto 0.84 K/mm3 (0.9-3.2); Lymphocytes Percent Auto 6.5 % (18.3-44.2); Mean Corpuscular HGB Conc 29.7 g/dl (32-36); Mean Corpuscular Hemoglobin 26.6 pg (26-34); Mean Corpuscular Volume 89.7 fl (80-100); Mean Platelet Volume 10.3 fl (7.4-10.4); Monocytes Absolute Auto 1.1 K/mm3 (0.1-0.6); Monocytes Percent Auto 8.3 % (2.6-8.5); Neutrophils Percent Auto 84.4 % (45.5-73.1); Platelet Count Result 505 k/mm3 (150-375); Red Blood Count 5.07 M/mm3 (4.2-5.4); Red Cell Distribution Width 15.5 % (11.5-14.5)
[2021-05-07 07:28] LABS: INR 1.4; Prothrombin Time 16.6 Seconds (11.1-14.7)
[2021-05-07 07:30] LABS: Alanine Aminotransferase 23 U/L (4-35); Alkaline Phosphatase 69 U/L (38-126); Anion Gap 7 mmol/L (8-16); Aspartate Amino Transferase 34 U/L (14-36); Bilirubin,Total 0.8 mg/dL (0.2-1.3); Blood Urea Nitrogen 19 mg/dL (7-17); CRP 0.9 mg/dL (<1.0); Calcium 8.7 mg/dL (8.4-10.2); Carbon Dioxide 38 mmol/L (22-30); Chloride 92 mmol/L (98-107); Estimated CRCL calculation 111 ml/min; Estimated Glomerular Filt Rate > 60; Glucose 126 mg/dL (65-110); Potassium 3.8 mmol/L (3.4-5.0); Sodium 137 mmol/L (137-145)
[2021-05-07 07:31] LABS: D Dimer 1.61 ug/mL (<0.48)
[2021-05-07] MEDS: DEXAMETHASONE SOD PHOS INJ 4 MG/ML VIAL 6 MG IV PUSH (08:39)
[2021-05-07] MEDS: FUROSEMIDE INJ 40 MG/4 ML VIAL IV PUSH ×2 (08:40→16:49)
[2021-05-07] MEDS: ASPIRIN 81 MG ENTERIC TABLET PO (08:40)
[2021-05-07] MEDS: PANTOPRAZOLE 40 MG TABLET PO (08:40)
[2021-05-07] MEDS: APIXABAN 5 MG TABLET PO ×2 (08:40→20:07)
[2021-05-07] MEDS: LORazepam (*CRX) 0.5 MG TABLET PO ×3 (08:40→16:50)
[2021-05-07] MEDS: CITALOPRAM HYDROBROMIDE 20 MG TABLET PO (08:40)
[2021-05-07] MEDS: ATORVASTATIN 10 MG TABLET PO (08:40)
[2021-05-07 08:41] LABS: Glucose Point of Care 124 mg/dl (65-105)
[2021-05-07 08:59] LABS: Platelet Estimate Increased (Adequate)
[2021-05-07 09:00] LABS: Anisocytosis 1+ (NORMAL)
[2021-05-07] MEDS: FLUTICASONE/UMECLIDIN/VILANTER 100-62.5-25 MCG ELLIPTA 1 PUFF INHALATION (09:14)
[2021-05-07] MEDS: HYDROcodone/acetaminophen (*CRX) 5-325 MG TABLET 1 TAB PO ×3 (10:36→22:24)
[2021-05-07] MEDS: ONDANSETRON INJ 4 MG/2 ML VIAL IV PUSH ×2 (10:38→21:57)
--- NOTE | 2021-05-07 11:02 | PCNWS ---
Weekly nutritional screen. Pt screened in for 7 day length of stay. Patient is tolerating current diet with adequate intake. No weight loss reported. No nutritional needs at this time.
--- NOTE | 2021-05-07 11:23 | PM.IMPN ---
Progress Note: A&P Assessment and Plan (1) Acute and chronic respiratory failure: Code(s): J96.20 - Acute and chronic respiratory failure, unspecified whether with hypoxia or hypercapnia Status: Acute Assessment and Plan: Secondary to COVID pneumonia. Pulmonary embolism is considered but seems less likely by history. I reviewed Echo right ventricular dilatation. Most likely related to pulmonary hypertension Pulmonology consult Currently on high-flow oxygen Patient is DNR DNI (2) Pneumonia due to COVID-19 virus: Code(s): U07.1 - COVID-19; J12.82 - Pneumonia due to coronavirus disease 2019 Status: Acute Assessment and Plan: She has been started on dexamethasone and remdesivir per protocol. recieved tocilizumab (3) Elevated LFTs: Code(s): R79.89 - Other specified abnormal findings of blood chemistry Status: Acute Assessment and Plan: Most likely related to COVID-19 (4) Obstructive sleep apnea on CPAP: Code(s): G47.33 - Obstructive sleep apnea (adult) (pediatric); Z99.89 - Dependence on other enabling machines and devices Status: Acute Assessment and Plan: Currently on BiPAP. (5) COPD with emphysema: Qualifiers: Emphysema type: centrilobular Qualified Code(s): J43.2 - Centrilobular emphysema Code(s): J43.9 - Emphysema, unspecified Status: Acute Assessment and Plan: No acute bronchospasm. Continue treatment as detailed above. (6) Diet-controlled diabetes mellitus: Code(s): E11.9 - Type 2 diabetes mellitus without complications Status: Acute Assessment and Plan: Continue sliding scale insulin, Accu-Cheks, and hypoglycemic protocol. Hemoglobin A1c. (7) Leukocytosis: Code(s): D72.829 - Elevated white blood cell count, unspecified Status: Acute Assessment and Plan: Probably secondary bacterial infection patient currently on IV antibiotic per pulmonology (8) Afib: Code(s): I48.91 - Unspecified atrial fibrillation Status: Acute Assessment and Plan: New onset Given 1 dose of Cardizem IV Patient was started on Eliquis metoprolol and diltiazem Cardiology consult Subjective Date/time seen: 05/07/21 11:23 Interval history: 66-year-old female with a history of former tobacco use with COPD presented to the hospital with shortness of breath was found to have COVID-19 pneumonia patient was treated with dexamethasone remdesivir and tolicimab I discussed with pulmonology at home patient was using the CPAP machine for almost 20 hours out of 24 hours most likely patient has CPAP dependent Patient feels better today patient does not want intubation Still complaining of shortness of breath but better than yesterday Denies fever or chills no chest pain I am seeing the patient for COVID-19 pneumonia Exam Narrative: Alert Chest positive bilateral crackles Abdomen nontender nondistended CVS S1 + S2 Lower extremity minimal edema Objective Data Vital Signs Vital Signs: Vital Signs - 24 hr 05/06/21 12:00 05/06/21 14:00 05/06/21 15:22 Temperature 98.8 F Pulse Rate 94 92 80 Respiratory Rate 12 12 Blood Pressure 144/68 H Pulse Oximetry 94 96 05/06/21 16:00 05/06/21 17:22 05/06/21 18:00 Temperature 97.6 F Pulse Rate 169 H 178 H 87 Respiratory Rate 16 Blood Pressure 117/62 Pulse Oximetry 95 05/06/21 19:03 05/06/21 20:00 05/06/21 22:00 Temperature 97.4 F L 97.2 F L Pulse Rate 115 H 136 H 161 H Respiratory Rate 16 20 Blood Pressure 120/79 136/85 Pulse Oximetry 97 95 05/06/21 23:00 05/06/21 23:25 05/07/21 00:00 Temperature 96.9 F L Pulse Rate 165 H 165 H Respiratory Rate 22 H 22 H Blood Pressure 107/52 L Pulse Oximetry 95 96 96 05/07/21 02:00 05/07/21 04:00 05/07/21 06:00 Temperature 97.2 F L Pulse Rate 153 H 138 H 91 Respiratory Rate 16 Blood Pressure 122/70 Pulse Oximetry 97 12
--- NOTE | 2021-05-07 11:55 | PM.PNPUL ---
Progress Note: A&P Assessment and Plan (1) Acute on chronic respiratory failure with hypoxia: Code(s): J96.21 - Acute and chronic respiratory failure with hypoxia Status: Acute Assessment and Plan: respiratory status unchanged over the last 24 hours. The patient tolerating high-flow nasal cannula with saturation over 90%. Continue with current regiment of dexamethasone, remdesivir, and ceftriaxone for possible lower respiratory infection not covid related. D-dimer, CRP not very elevated. monitor respiratory status. Repeat chest x-ray in a.m. (2) Obstructive sleep apnea on CPAP: Code(s): G47.33 - Obstructive sleep apnea (adult) (pediatric); Z99.89 - Dependence on other enabling machines and devices Status: Acute (3) Pneumonia due to COVID-19 virus: Code(s): U07.1 - COVID-19; J12.82 - Pneumonia due to coronavirus disease 2019 Status: Acute (4) COPD with emphysema: Qualifiers: Emphysema type: centrilobular Qualified Code(s): J43.2 - Centrilobular emphysema Code(s): J43.9 - Emphysema, unspecified Status: Acute Subjective Date/time seen: 05/07/21 11:55 Patient with a emphysema, COVID 19 pneumonia currently on high-flow oxygen treatment. She has had no new respiratory symptoms. Shortness of breath about the same. Has mild cough with no sputum production. She has no wheezing. Recent chest CT showed emphysema and extensive infiltrates related to COVID-19 infection. No pulmonary embolism. Review of Systems Review of Systems: All systems reviewed & are unremarkable except as noted in HPI and below (below.) Exam Narrative: GENERAL APPEARANCE: Well developed, well nourished, alert and cooperative, and appears to be in mild respiratory distress while on high flow O2. SKIN: Inspection of the skin reveals no rashes, ulcerations or petechiae. HEENT: Sclerae anicteric and conjunctivae pink and moist. Extraocular movements were intact and pupils were equal, round. NECK: Supple. There was no thyroid enlargement, and no tenderness, or masses were felt. CHEST: Normal AP diameter and normal contour without any kyphoscoliosis. LUNGS: Distant breath sounds anteriorly, rare crackles at bases posteriorly no wheezing. CARDIAC: There was a regular rate and rhythm without any murmurs, gallops, rubs. ABDOMEN: Soft and nontender with normal bowel sounds. There was no organomegaly. LYMPH NODES: No lymphadenopathy was appreciated in the neck. EXTREMITIES: No cyanosis, clubbing or edema. NEUROLOGIC: Alert and oriented x 3. Normal affect. Objective Data Vital Signs Vital Signs: Vital Signs - 24 hr 05/06/21 12:00 05/06/21 14:00 05/06/21 15:22 Temperature 37.1 C Pulse Rate 94 92 80 Respiratory Rate 12 12 Blood Pressure 144/68 H Pulse Oximetry 94 96 05/06/21 16:00 05/06/21 17:22 05/06/21 18:00 Temperature 36.4 C Pulse Rate 169 H 178 H 87 Respiratory Rate 16 Blood Pressure 117/62 Pulse Oximetry 95 05/06/21 19:03 05/06/21 20:00 05/06/21 22:00 Temperature 36.3 C L 36.2 C L Pulse Rate 115 H 136 H 161 H Respiratory Rate 16 20 Blood Pressure 120/79 136/85 Pulse Oximetry 97 95 05/06/21 23:00 05/06/21 23:25 05/07/21 00:00 Temperature 36.1 C L Pulse Rate 165 H 165 H Respiratory Rate 22 H 22 H Blood Pressure 107/52 L Pulse Oximetry 95 96 96 05/07/21 02:00 05/07/21 04:00 05/07/21 06:00 Temperature 36.2 C L Pulse Rate 153 H 138 H 91 Respiratory Rate 16 Blood Pressure 122/70 Pulse Oximetry 97 05/07/21 08:00 05/07/21 09:15 05/07/21 10:00 Temperature 36.4 C Pulse Rate 93 98 Respiratory Rate 22 H Blood Pressure 137/68 Pulse Oximetry 90 90 Intake/Output Intake/Output: Intake & Output 05/04/21 05/05/21 05/06/21 05/07/21 23:59 23:59 23:59 23:59 Intake Total 0 850 340 800 Output Total 2950 3250 2000 1000 Balance -3990 -0060 -1660 -200 Meds/Results Medications: Active Medications Generic Name D
[2021-05-07 12:04] LABS: Glucose Point of Care 141 mg/dl (65-105)
[2021-05-07] MEDS: PROCHLORPERAZINE EDISYLATE 10 MG/2 ML VIAL IV PUSH (12:56)
--- NOTE | 2021-05-07 16:46 | PM.PNCARD ---
Progress Note: A&P Assessment and Plan (1) Paroxysmal atrial fibrillation with RVR: Code(s): I48.0 - Paroxysmal atrial fibrillation Status: Acute Assessment and Plan: No prior known history of documentation of atrial fibrillation. Patient generally asymptomatic. CHADS2 Vasc score 4. Systemic anticoagulation advised. Continue Eliquis 5 mg b.i.d.. Due to poor control with diltiazem Add metoprolol tartrate 25 mg b.i.d.. If tolerated uptitrate. Will change diltiazem to short-acting beginning tomorrow morning 60 mg p.o. q.8 hours. Continue telemetry. Patient otherwise stable from cardiac perspective. (2) Paroxysmal SVT (supraventricular tachycardia): Code(s): I47.1 - Supraventricular tachycardia Status: Acute Assessment and Plan: This appears to be separate from identified atrial fibrillation with rapid ventricular response. Given heart rate of approximately 170 beats per minute very unlikely to be atrial flutter. Continue telemetry. As above. (3) Pneumonia due to COVID-19 virus: Code(s): U07.1 - COVID-19; J12.82 - Pneumonia due to coronavirus disease 2018 Status: Acute Assessment and Plan: Continue supportive care, O2 supplementation, BiPAP support as required. BNP 125 on admission. Chest x-ray consistent with pneumonia versus pulmonary edema. Patient does not appear to be in significant clinical decompensated heart failure. Reported improvement after initiation of IV Lasix, however. Continue Lasix 40 mg IV daily for now provided renal function electrolytes remained stable with plans to transition to oral regimen as appropriate. Keep potassium around 4.0 and magnesium around 2.0 respectively. Recheck magnesium level. (4) Acute on chronic respiratory failure with hypoxia: Code(s): J96.21 - Acute and chronic respiratory failure with hypoxia Status: Acute Assessment and Plan: Patient still requires significant O2 supplementation. Patient remains critically ill in isolation for COVID pneumonia. Appreciate pulmonology involvement and recommendations. CTA chest severe emphysema moderate pneumonia limited evaluation but no PE noted. Subjective Date/time seen: Date of service: 05/07/21 16:46 Follow-up for SVT and paroxysmal atrial fibrillation with rapid ventricular response, COVID pneumonia Patient is still requiring high-flow nasal cannula. More frequent episodes of AFib with RVR heart rate up to the 170s. Patient asymptomatic otherwise. Denies chest pain, nausea vomiting. Patient states she wants to go home. Review of Systems Review of Systems: All systems reviewed & are unremarkable except as noted in HPI and below Constitutional: Constitutional: Reports as per HPI, Reports no additional constitutional complaints, Reports chills, Reports fatigue, Reports lethargy and Reports weakness Eyes: Eyes: Reports as per HPI and Reports no additional eye complaints ENT: Reports system reviewed and no additional complaints, except as documented and Reports as per HPI Cardiovascular: Cardiovascular: Reports as per HPI, Reports no additional cardiovascular complaints, Denies chest pain, Reports diaphoresis, Denies leg edema, Denies lightheadedness, Denies palpitations, Reports dyspnea and Reports dyspnea on exertion Respiratory: Respiratory: Reports as per HPI, Reports no additional respiratory complaints, Reports cough, Denies hemoptysis, Reports dyspnea and Reports dyspnea on exertion Gastrointestinal: Gastrointestinal: Reports as per HPI, Reports no additional gastrointestinal complaints, Denies abdominal pain, Denies melena, Denies hematochezia, Denies nausea and Denies vomiting Genitourinary: Genitourinary: Reports as per HPI and Denies hematuria Musculoskeletal: Musculoskeletal: Reports no additional musculoskeletal complaints and Reports as per HPI Integumentary/Breasts: Skin/Breast: Reports system reviewed and no additional complaints, except as docu and Repo
[2021-05-07 16:47] LABS: Glucose Point of Care 158 mg/dl (65-105)
[2021-05-07] MEDS: cefTRIAXone 2 GM in SODIUM CHLORIDE 0.9% IV 100 ML 200 ML IVPB (17:05)
[2021-05-07] MEDS: REMDESIVIR 100 MG/NS 250 ML 100 MG/250 ML BAG 250 MG IVPB (20:07)
[2021-05-07] MEDS: METOPROLOL TARTRATE 25 MG TABLET PO (20:07)
[2021-05-07 22:12] LABS: Glucose Point of Care 158 mg/dl (65-105)
[2021-05-08] VITALS (23 sets, daily range): BP systolic 120–154; BP diastolic 56–92; PULSE 89–174; RESP 20–24; TEMP 35.7–37.2; O2SAT 91–97
[2021-05-08] MEDS: MORPHINE SULFATE (*CRX) 4 MG/ML INJ IV PUSH ×2 (00:36→05:31)
[2021-05-08] MEDS: ZAFIRLUKAST 20 MG TABLET PO ×2 (05:26→16:09)
[2021-05-08] MEDS: METOPROLOL TARTRATE INJ 5 MG/5 ML VIAL IV PUSH ×3 (06:00→18:00)
[2021-05-08] MEDS: dilTIAZem HCL 60 MG TABLET PO ×3 (06:00→21:42)
[2021-05-08 08:06] LABS: Basophils Percent Auto 0.2 % (0.2-1.2); Eosinophils Percent Auto 0.3 % (0-4.4); Hematocrit 43.9 % (37.0-47.0); Hemoglobin 13.2 g/dL (12.0-15.0); Immature Granulocyte Absolute 0.08 K/mm3 (0.00-0.031); Immature Granulocyte Percent A 0.6 % (0-0.5); Lymphocytes Absolute Auto 1.27 K/mm3 (0.9-3.2); Lymphocytes Percent Auto 9.3 % (18.3-44.2); Mean Corpuscular HGB Conc 30.1 g/dl (32-36); Mean Corpuscular Hemoglobin 26.9 pg (26-34); Mean Corpuscular Volume 89.6 fl (80-100); Mean Platelet Volume 10.4 fl (7.4-10.4); Monocytes Absolute Auto 1.6 K/mm3 (0.1-0.6); Monocytes Percent Auto 11.5 % (2.6-8.5); Neutrophils Absolute Auto 10.6 K/mm3 (1.3-6.7); Neutrophils Percent Auto 78.1 % (45.5-73.1); Platelet Count Result 521 k/mm3 (150-375); Red Cell Distribution Width 15.5 % (11.5-14.5); White Blood Count 13.6 K/mm3 (4.5-10.0)
[2021-05-08 08:13] LABS: Alanine Aminotransferase 21 U/L (4-35); Albumin Level 4.1 g/dL (3.5-5.1); Alkaline Phosphatase 61 U/L (38-126); Anion Gap 9 mmol/L (8-16); Aspartate Amino Transferase 40 U/L (14-36); Blood Urea Nitrogen 22 mg/dL (7-17); Calcium 8.6 mg/dL (8.4-10.2); Carbon Dioxide 35 mmol/L (22-30); Chloride 89 mmol/L (98-107); Estimated CRCL calculation 110 ml/min; Estimated Glomerular Filt Rate > 60; Glucose 119 mg/dL (65-110); Sodium 133 mmol/L (137-145)
[2021-05-08 08:20] LABS: NT Pro B Type Natriuretic Pept 315 pg/mL (5-100)
[2021-05-08 08:22] LABS: INR 1.4; Prothrombin Time 16.6 Seconds (11.1-14.7)
[2021-05-08 08:38] LABS: Glucose Point of Care 139 mg/dl (65-105)
--- NOTE | 2021-05-08 08:40 | PM.PNCARD ---
Progress Note: A&P Assessment and Plan (1) Paroxysmal atrial fibrillation with RVR: Code(s): I48.0 - Paroxysmal atrial fibrillation Status: Acute Assessment and Plan: No prior known history of documentation of atrial fibrillation. Patient generally asymptomatic. CHADS2 Vasc score 4. Systemic anticoagulation advised. Continue Eliquis 5 mg b.i.d.. Due to poor control with diltiazem added metoprolol tartrate 25 mg b.i.d.; may need to uptitrate. Add IV metoprolol prn tachycardia. Continue telemetry. Hr adequately controlled this morning. Counseled pt re: PAF and tx. (2) Paroxysmal SVT (supraventricular tachycardia): Code(s): I47.1 - Supraventricular tachycardia Status: Acute Assessment and Plan: This appears to be separate from identified atrial fibrillation with rapid ventricular response. Given heart rate of approximately 170 beats per minute very unlikely to be atrial flutter. Continue telemetry, metoprolol and Cardizem. (3) Pneumonia due to COVID-19 virus: Code(s): U07.1 - COVID-19; J12.82 - Pneumonia due to coronavirus disease 2018 Status: Acute Assessment and Plan: Continue supportive care, O2 supplementation, BiPAP support as required. (4) Acute on chronic respiratory failure with hypoxia: Code(s): J96.21 - Acute and chronic respiratory failure with hypoxia Status: Acute Assessment and Plan: Patient on home O2 for COPD, still requires significant O2 supplementation. CTA chest severe emphysema moderate pneumonia limited evaluation but no PE noted. (5) Swelling of lower leg: Code(s): M79.89 - Other specified soft tissue disorders Status: Acute Assessment and Plan: Initially had edema and perhaps mild CHF, improved w/ IV furosemide. BNP 125 on admission, now minimally elevated at 315 on 05/08/2021. Chest x-ray consistent with pneumonia versus pulmonary edema. Patient does not appear to be in significant clinical decompensated heart failure at this time. Reported improvement after initiation of IV Lasix, however. Continue Lasix 40 mg IV daily for now provided renal function electrolytes remain stable with plans to transition to oral regimen as appropriate. Periodically check electrolytes. Subjective Date/time seen: 05/08/21 08:40 Interval history: Follow-up for SVT and paroxysmal atrial fibrillation with rapid ventricular response, COVID pneumonia, CHF 05/07/2021: Patient is still requiring high-flow nasal cannula. More frequent episodes of AFib with RVR heart rate up to the 170s. Patient asymptomatic otherwise. Denies chest pain, nausea vomiting. Patient states she wants to go home. Added metoprolol, change Cardizem from 180 mg daily to: 60 mg q.8 hours. Date of service 05/08/2021: Patient had AFib RVR and also SVT through the night, heart rate in the 170s, given metoprolol 5 mg IV push and started on her p.o. Cardizem early. This morning, telemetry shows AFib/flutter heart rate 112. Remains on high-flow nasal oxygen at 15 L, O2 sat 93%. Complains of SOB with activity but comfortable at rest. Requests more medicine for anxiety. ProBNP 315. Chest x-ray reviewed, diffuse bilateral infiltrates. Review of Systems Constitutional: Constitutional: Reports weakness ENT: Denies nasal congestion Cardiovascular: Cardiovascular: Denies chest pain and Denies leg edema (resolved) Respiratory: Respiratory: Reports cough, Reports dyspnea and Reports dyspnea on exertion Gastrointestinal: Gastrointestinal: Denies abdominal pain and Reports constipation Genitourinary: Genitourinary: Denies hematuria Musculoskeletal: Musculoskeletal: Reports no additional musculoskeletal complaints Integumentary/Breasts: Skin/Breast: Denies rash Neurologic: Denies confusion Psychiatric: Psychiatric: Reports anxiety Exam Cons
[2021-05-08] MEDS: PANTOPRAZOLE 40 MG TABLET PO (08:45)
[2021-05-08] MEDS: METOPROLOL TARTRATE 25 MG TABLET PO ×2 (08:45→21:42)
[2021-05-08] MEDS: FUROSEMIDE INJ 40 MG/4 ML VIAL IV PUSH ×2 (08:45→16:09)
[2021-05-08] MEDS: ATORVASTATIN 10 MG TABLET PO (08:45)
[2021-05-08] MEDS: CITALOPRAM HYDROBROMIDE 20 MG TABLET PO (08:45)
[2021-05-08] MEDS: DEXAMETHASONE SOD PHOS INJ 4 MG/ML VIAL 6 MG IV PUSH (08:45)
[2021-05-08] MEDS: ASPIRIN 81 MG ENTERIC TABLET PO (08:45)
[2021-05-08] MEDS: APIXABAN 5 MG TABLET PO ×2 (08:46→21:42)
[2021-05-08] MEDS: FLUTICASONE/UMECLIDIN/VILANTER 100-62.5-25 MCG ELLIPTA 1 PUFF INHALATION (09:01)
--- NOTE | 2021-05-08 10:03 | PM.PNPUL ---
Progress Note: A&P Assessment and Plan (1) Acute on chronic respiratory failure with hypoxia: Code(s): J96.21 - Acute and chronic respiratory failure with hypoxia Status: Acute Assessment and Plan: respiratory status unchanged over the last 24 hours. The patient tolerating high-flow nasal cannula with saturation over 90%. Continue with current regiment of dexamethasone, remdesivir, and ceftriaxone for possible lower respiratory infection not covid related. also on treatment for AFib mild CHF. Chest x-ray unchanged, monitor respiratory status. (2) Obstructive sleep apnea on CPAP: Code(s): G47.33 - Obstructive sleep apnea (adult) (pediatric); Z99.89 - Dependence on other enabling machines and devices Status: Acute (3) Pneumonia due to COVID-19 virus: Code(s): U07.1 - COVID-19; J12.82 - Pneumonia due to coronavirus disease 2019 Status: Acute (4) COPD with emphysema: Qualifiers: Emphysema type: centrilobular Qualified Code(s): J43.2 - Centrilobular emphysema Code(s): J43.9 - Emphysema, unspecified Status: Acute Subjective Date/time seen: 05/08/21 10:03 Patient with a emphysema, COVID 19 pneumonia currently on high-flow oxygen treatment. Also receiving dexamethasone remdesivir. History of sleep apnea on CPAP. She has had no new respiratory symptoms. Shortness of breath about the same. Has mild cough with no sputum production. She has no wheezing. Review of Systems Review of Systems: All systems reviewed & are unremarkable except as noted in HPI and below Exam Narrative: GENERAL APPEARANCE: Well developed, well nourished, alert and cooperative, and appears to be in mild respiratory distress while on high flow O2. SKIN: Inspection of the skin reveals no rashes, ulcerations or petechiae. HEENT: Sclerae anicteric and conjunctivae pink and moist. Extraocular movements were intact and pupils were equal, round. NECK: Supple. There was no thyroid enlargement, and no tenderness, or masses were felt. CHEST: Normal AP diameter and normal contour without any kyphoscoliosis. LUNGS: Distant breath sounds anteriorly, rare crackles at bases posteriorly no wheezing. CARDIAC: There was a regular rate and rhythm without any murmurs, gallops, rubs. ABDOMEN: Soft and nontender with normal bowel sounds. There was no organomegaly. LYMPH NODES: No lymphadenopathy was appreciated in the neck. EXTREMITIES: No cyanosis, clubbing or edema. NEUROLOGIC: Alert and oriented x 3. Normal affect. Objective Data Vital Signs Vital Signs: Vital Signs - 24 hr 05/07/21 12:00 05/07/21 14:00 05/07/21 15:56 Temperature Pulse Rate 106 H 95 Respiratory Rate Blood Pressure Pulse Oximetry 90 92 05/07/21 16:00 05/07/21 18:00 05/07/21 20:00 Temperature 36.8 C Pulse Rate 93 103 H 165 H Respiratory Rate 24 H Blood Pressure 131/54 L Pulse Oximetry 100 94 05/07/21 20:07 05/07/21 20:30 05/07/21 21:10 Temperature 37.6 C H Pulse Rate 160 H 100 Respiratory Rate 22 H Blood Pressure 108/71 Pulse Oximetry 94 94 05/07/21 22:00 05/08/21 00:00 05/08/21 00:25 Temperature 36.6 C Pulse Rate 106 H 131 H 109 H Respiratory Rate 21 H Blood Pressure 125/92 H Pulse Oximetry 95 94 05/08/21 02:00 05/08/21 03:50 05/08/21 04:00 Temperature Pulse Rate 99 103 H Respiratory Rate Blood Pressure Pulse Oximetry 95 05/08/21 04:35 05/08/21 06:00 05/08/21 08:00 Temperature 36.9 C 36.4 C Pulse Rate 105 H 173 H 115 H Respiratory Rate 21 H 24 H Blood Pressure 120/56 L 154/74 H Pulse Oximetry 93 91 05/08/21 09:02 Temperature Pulse Rate Respiratory Rate Blood Pressure Pulse Oximetry 93 Intake/Output Intake/Output: Intake & Output 05/05/21 05/06/21 05/07/21 05/08/21 23:59 23:59 23:59 23:59 Intake Total 001 287 1495 450 Output Total 3250 2000 1550 700 Balance -2400 -1660 750 -250 Meds/Results Medications: Act
--- NOTE | 2021-05-08 11:00 | PM.IMPN ---
Progress Note: A&P Assessment and Plan (1) Acute and chronic respiratory failure: Code(s): J96.20 - Acute and chronic respiratory failure, unspecified whether with hypoxia or hypercapnia Status: Acute Assessment and Plan: Secondary to COVID pneumonia. Pulmonary embolism is considered but seems less likely by history. I reviewed Echo right ventricular dilatation. Most likely related to pulmonary hypertension Pulmonology consult Currently on high-flow oxygen Patient is DNR DNI Improved (2) Pneumonia due to COVID-19 virus: Code(s): U07.1 - COVID-19; J12.82 - Pneumonia due to coronavirus disease 2019 Status: Acute Assessment and Plan: She has been started on dexamethasone and remdesivir per protocol. recieved tocilizumab pulmonology following (3) Elevated LFTs: Code(s): R79.89 - Other specified abnormal findings of blood chemistry Status: Acute Assessment and Plan: Most likely related to COVID-19 (4) Obstructive sleep apnea on CPAP: Code(s): G47.33 - Obstructive sleep apnea (adult) (pediatric); Z99.89 - Dependence on other enabling machines and devices Status: Acute Assessment and Plan: Currently on non-rebreather 15 L patient is interested in LTAC disease case manager to follow (5) COPD with emphysema: Qualifiers: Emphysema type: centrilobular Qualified Code(s): J43.2 - Centrilobular emphysema Code(s): J43.9 - Emphysema, unspecified Status: Acute Assessment and Plan: No acute bronchospasm. Continue treatment as detailed above. (6) Diet-controlled diabetes mellitus: Code(s): E11.9 - Type 2 diabetes mellitus without complications Status: Acute Assessment and Plan: Continue sliding scale insulin, Accu-Cheks, and hypoglycemic protocol. Hemoglobin A1c. (7) Leukocytosis: Code(s): D72.829 - Elevated white blood cell count, unspecified Status: Acute Assessment and Plan: Probably secondary bacterial infection patient currently on IV antibiotic per pulmonology (8) Afib: Code(s): I48.91 - Unspecified atrial fibrillation Status: Acute Assessment and Plan: New onset Given 1 dose of Cardizem IV Patient was started on Eliquis metoprolol and diltiazem Cardiology consult Resolved Subjective Date/time seen: 05/08/21 11:00 Interval history: 66-year-old female with a history of former tobacco use with COPD presented to the hospital with shortness of breath was found to have COVID-19 pneumonia patient was treated with dexamethasone remdesivir and tolicimab I discussed with pulmonology at home patient was using the CPAP machine for almost 20 hours out of 24 hours most likely patient has CPAP dependent Patient feels better today patient does not want intubation Still complaining of shortness of breath but better than yesterday Chest x-ray shows COVID pneumonia with possible sober on both pulmonary edema patient on diuresis Denies fever or chills no chest pain I am seeing the patient for COVID-19 pneumonia Exam Narrative: Alert Chest positive bilateral crackles Abdomen nontender nondistended CVS S1 + S2 Lower extremity minimal edema Objective Data Vital Signs Vital Signs: Vital Signs - 24 hr 05/07/21 12:00 05/07/21 14:00 05/07/21 15:56 Temperature Pulse Rate 106 H 95 Respiratory Rate Blood Pressure Pulse Oximetry 90 92 05/07/21 16:00 05/07/21 18:00 05/07/21 20:00 Temperature 98.2 F Pulse Rate 93 103 H 165 H Respiratory Rate 24 H Blood Pressure 131/54 L Pulse Oximetry 100 94 05/07/21 20:07 05/07/21 20:30 05/07/21 21:10 Temperature 99.7 F H Pulse Rate 160 H 100 Respiratory Rate 22 H Blood Pressure 108/71 Pulse Oximetry 94 94 05/07/21 22:00 05/08/21 00:00 05/08/21 00:25 Temperature 97.8 F Pulse Rate 106 H 131 H 109 H Respiratory Rate 21 H Blood Pressure 125/92 H Pulse Oximetry 95 94
[2021-05-08] MEDS: HYDROcodone/acetaminophen (*CRX) 5-325 MG TABLET 1 TAB PO ×2 (12:54→21:43)
[2021-05-08] MEDS: LORazepam (*CRX) 0.5 MG TABLET PO ×2 (13:09→21:42)
[2021-05-08 13:27] LABS: Glucose Point of Care 145 mg/dl (65-105)
[2021-05-08] MEDS: acetaZOLAMIDE TAB 250 MG TABLET PO (16:09)
[2021-05-08 16:44] LABS: Glucose Point of Care 157 mg/dl (65-105)
[2021-05-08] MEDS: cefTRIAXone 2 GM in SODIUM CHLORIDE 0.9% IV 100 ML 200 ML IVPB (17:51)
[2021-05-08] MEDS: ALBUTEROL SULFATE (*SP) AEROSOL 1 PUFF 2 PUFF INHALATION (19:31)
[2021-05-08] MEDS: ONDANSETRON INJ 4 MG/2 ML VIAL IV PUSH (21:42)
[2021-05-08] MEDS: DOCUSATE SODIUM 100 MG CAPSULE PO (21:42)
[2021-05-08] MEDS: REMDESIVIR 100 MG/NS 250 ML 100 MG/250 ML BAG 250 MG IVPB (21:43)
[2021-05-08 22:36] LABS: Glucose Point of Care 151 mg/dl (65-105)
[2021-05-09] VITALS (22 sets, daily range): BP systolic 125–152; BP diastolic 53–65; PULSE 65–106; RESP 20–22; TEMP 35.7–37; O2SAT 92–99
[2021-05-09] MEDS: dilTIAZem HCL 60 MG TABLET PO ×3 (06:43→21:37)
[2021-05-09] MEDS: ZAFIRLUKAST 20 MG TABLET PO ×2 (06:43→17:29)
[2021-05-09] MEDS: LORazepam (*CRX) 0.5 MG TABLET PO ×3 (06:49→21:37)
[2021-05-09 08:25] LABS: Glucose Point of Care 154 mg/dl (65-105)
[2021-05-09 08:26] LABS: Basophils Percent Auto 0.2 % (0.2-1.2); Eosinophils Percent Auto 0.1 % (0-4.4); Hematocrit 46.2 % (37.0-47.0); Hemoglobin 14.1 g/dL (12.0-15.0); Immature Granulocyte Absolute 0.09 K/mm3 (0.00-0.031); Immature Granulocyte Percent A 0.7 % (0-0.5); Lymphocytes Absolute Auto 0.98 K/mm3 (0.9-3.2); Lymphocytes Percent Auto 7.5 % (18.3-44.2); Mean Corpuscular HGB Conc 30.5 g/dl (32-36); Mean Corpuscular Hemoglobin 27.3 pg (26-34); Mean Corpuscular Volume 89.5 fl (80-100); Mean Platelet Volume 10.2 fl (7.4-10.4); Monocytes Absolute Auto 1.2 K/mm3 (0.1-0.6); Monocytes Percent Auto 9.4 % (2.6-8.5); Neutrophils Absolute Auto 10.8 K/mm3 (1.3-6.7); Neutrophils Percent Auto 82.1 % (45.5-73.1); Platelet Count Result 497 k/mm3 (150-375); Red Blood Count 5.16 M/mm3 (4.2-5.4); Red Cell Distribution Width 15.6 % (11.5-14.5); White Blood Count 13.1 K/mm3 (4.5-10.0)
[2021-05-09 08:46] LABS: INR 1.4; Prothrombin Time 16.7 Seconds (11.1-14.7)
[2021-05-09 09:03] LABS: Alanine Aminotransferase 22 U/L (4-35); Albumin Level 4.2 g/dL (3.5-5.1); Alkaline Phosphatase 73 U/L (38-126); Anion Gap 13 mmol/L (8-16); Aspartate Amino Transferase 27 U/L (14-36); Bilirubin,Total 0.9 mg/dL (0.2-1.3); Blood Urea Nitrogen 23 mg/dL (7-17); Calcium 9.3 mg/dL (8.4-10.2); Carbon Dioxide 33 mmol/L (22-30); Chloride 89 mmol/L (98-107); Estimated CRCL calculation 76 ml/min; Estimated Glomerular Filt Rate > 60; Glucose 158 mg/dL (65-110); Potassium 3.5 mmol/L (3.4-5.0); Sodium 135 mmol/L (137-145)
[2021-05-09] MEDS: acetaZOLAMIDE TAB 250 MG TABLET PO ×2 (09:26→17:30)
[2021-05-09] MEDS: ASPIRIN 81 MG ENTERIC TABLET PO (09:26)
[2021-05-09] MEDS: APIXABAN 5 MG TABLET PO ×2 (09:26→21:37)
[2021-05-09] MEDS: ATORVASTATIN 10 MG TABLET PO (09:26)
[2021-05-09] MEDS: DEXAMETHASONE SOD PHOS INJ 4 MG/ML VIAL 6 MG IV PUSH (09:27)
[2021-05-09] MEDS: FUROSEMIDE INJ 40 MG/4 ML VIAL IV PUSH ×3 (09:27→17:31)
[2021-05-09] MEDS: CITALOPRAM HYDROBROMIDE 20 MG TABLET PO (09:27)
[2021-05-09] MEDS: PANTOPRAZOLE 40 MG TABLET PO (09:28)
[2021-05-09] MEDS: METOPROLOL TARTRATE 25 MG TABLET PO ×2 (09:28→21:37)
--- NOTE | 2021-05-09 09:36 | PM.IMPN ---
Progress Note: A&P Assessment and Plan (1) Acute and chronic respiratory failure: Code(s): J96.20 - Acute and chronic respiratory failure, unspecified whether with hypoxia or hypercapnia Status: Acute Assessment and Plan: Secondary to COVID pneumonia. Pulmonary embolism is considered but seems less likely by history CT scan is negative for measure pulmonary embolism I reviewed Echo right ventricular dilatation. Most likely related to pulmonary hypertension Pulmonology consult Currently on high-flow oxygen Patient is DNR DNI Improved (2) Pneumonia due to COVID-19 virus: Code(s): U07.1 - COVID-19; J12.82 - Pneumonia due to coronavirus disease 2019 Status: Acute Assessment and Plan: She has been started on dexamethasone and remdesivir per protocol. recieved tocilizumab pulmonology following (3) Elevated LFTs: Code(s): R79.89 - Other specified abnormal findings of blood chemistry Status: Acute Assessment and Plan: Most likely related to COVID-19 monitor (4) Obstructive sleep apnea on CPAP: Code(s): G47.33 - Obstructive sleep apnea (adult) (pediatric); Z99.89 - Dependence on other enabling machines and devices Status: Acute Assessment and Plan: Currently on non-rebreather 15 L patient is interested in LTAC case management manager to follow pending pulmonology approval (5) COPD with emphysema: Qualifiers: Emphysema type: centrilobular Qualified Code(s): J43.2 - Centrilobular emphysema Code(s): J43.9 - Emphysema, unspecified Status: Acute Assessment and Plan: No acute bronchospasm. Continue treatment as detailed above. (6) Diet-controlled diabetes mellitus: Code(s): E11.9 - Type 2 diabetes mellitus without complications Status: Acute Assessment and Plan: Continue sliding scale insulin, Accu-Cheks, and hypoglycemic protocol. Hemoglobin A1c. (7) Leukocytosis: Code(s): D72.829 - Elevated white blood cell count, unspecified Status: Acute Assessment and Plan: Probably secondary bacterial infection patient currently on IV antibiotic per pulmonology (8) Afib: Code(s): I48.91 - Unspecified atrial fibrillation Status: Acute Assessment and Plan: New onset Given 1 dose of Cardizem IV Patient was started on Eliquis metoprolol and diltiazem Cardiology consult Resolved Subjective Date/time seen: 12/19/21 09:36 Interval history: 66-year-old female with a history of former tobacco use with COPD presented to the hospital with shortness of breath was found to have COVID-19 pneumonia patient was treated with dexamethasone remdesivir and tolicimab I discussed with pulmonology at home patient was using the CPAP machine for almost 20 hours out of 24 hours most likely patient has CPAP dependent Patient feels better today patient does not want intubation Still complaining of shortness of breath but better than yesterday Chest x-ray shows COVID pneumonia with possible pulmonary edema patient on diuresis Oxygenation has improved Patient complains of dry nose Denies fever or chills no chest pain I am seeing the patient for COVID-19 pneumonia Exam Narrative: Alert Chest positive bilateral crackles improved Abdomen nontender nondistended CVS S1 + S2 Lower extremity minimal edema better Objective Data Vital Signs Vital Signs: Vital Signs - 24 hr 05/08/21 10:00 05/08/21 12:00 05/08/21 13:00 Temperature Pulse Rate 89 90 Respiratory Rate Blood Pressure Pulse Oximetry 91 05/08/21 13:08 05/08/21 13:34 05/08/21 14:00 Temperature 96.2 F L Pulse Rate 171 H 106 H 98 Respiratory Rate 20 Blood Pressure 147/69 H Pulse Oximetry 97 05/08/21 16:00 05/08/21 16:18 05/08/21 18:00 Temperature 98.9 F Pulse Rate 141 H 170 H Respiratory Rate 24 H Blood Pressure 123/75 Pulse Oximetry 97 91 05/08/21 19:29 05/08/21 20:00 05/08/21 21:00
--- NOTE | 2021-05-09 11:34 | PCRCNOTE ---
Window of time for administration has passed. See next scheduled administration.
[2021-05-09] MEDS: HYDROcodone/acetaminophen (*CRX) 5-325 MG TABLET 1 TAB PO ×2 (12:20→21:37)
--- NOTE | 2021-05-09 13:24 | PM.PNPUL ---
Progress Note: A&P Assessment and Plan (1) Acute on chronic respiratory failure with hypoxia: Code(s): J96.21 - Acute and chronic respiratory failure with hypoxia Status: Acute Assessment and Plan: respiratory status unchanged over the last 24 hours. The patient tolerating high-flow nasal cannula with saturation over 90%. Continue with current regiment of dexamethasone, remdesivir, and ceftriaxone for possible lower respiratory infection not covid related. also on treatment for AFib mild CHF. monitor respiratory status, repeat CRP. (2) Obstructive sleep apnea on CPAP: Code(s): G47.33 - Obstructive sleep apnea (adult) (pediatric); Z99.89 - Dependence on other enabling machines and devices Status: Acute (3) Pneumonia due to COVID-19 virus: Code(s): U07.1 - COVID-19; J12.82 - Pneumonia due to coronavirus disease 2019 Status: Acute (4) COPD with emphysema: Qualifiers: Emphysema type: centrilobular Qualified Code(s): J43.2 - Centrilobular emphysema Code(s): J43.9 - Emphysema, unspecified Status: Acute Subjective Date/time seen: 05/09/21 13:24 Patient without new respiratory symptoms. She has mild cough, remaining on high-flow nasal cannula also using non-rebreather. Afebrile, on dexamethasone and remdesivir. Shortness of breath about unchanged. Review of Systems Review of Systems: All systems reviewed & are unremarkable except as noted in HPI and below Exam Narrative: GENERAL APPEARANCE: Well developed, well nourished, alert and cooperative, and appears to be in mild respiratory distress while on high flow O2. SKIN: Inspection of the skin reveals no rashes, ulcerations or petechiae. HEENT: Sclerae anicteric and conjunctivae pink and moist. Extraocular movements were intact and pupils were equal, round. NECK: Supple. There was no thyroid enlargement, and no tenderness, or masses were felt. LUNGS: Distant breath sounds anteriorly, rare crackles at bases posteriorly no wheezing. CARDIAC: There was a regular rate and rhythm without any murmurs, gallops, rubs. ABDOMEN: Soft and nontender with normal bowel sounds. LYMPH NODES: No lymphadenopathy was appreciated in the neck. EXTREMITIES: No cyanosis, clubbing or edema. NEUROLOGIC: Alert and oriented x 3. Normal affect. Objective Data Vital Signs Vital Signs: Vital Signs - 24 hr 05/08/21 13:34 05/08/21 14:00 05/08/21 16:00 Temperature 35.7 C L 37.2 C Pulse Rate 106 H 98 141 H Respiratory Rate 20 24 H Blood Pressure 147/69 H 123/75 Pulse Oximetry 97 97 05/08/21 16:18 05/08/21 18:00 05/08/21 19:29 Temperature Pulse Rate 170 H Respiratory Rate Blood Pressure Pulse Oximetry 91 94 05/08/21 20:00 05/08/21 21:00 05/08/21 21:42 Temperature 37.2 C Pulse Rate 95 95 140 H Respiratory Rate 23 H Blood Pressure 134/68 Pulse Oximetry 92 92 05/08/21 22:00 05/09/21 00:00 05/09/21 00:15 Temperature 36.8 C Pulse Rate 97 90 95 Respiratory Rate 22 H Blood Pressure 125/59 L Pulse Oximetry 97 97 05/09/21 02:00 05/09/21 02:17 05/09/21 04:00 Temperature Pulse Rate 72 65 71 Respiratory Rate Blood Pressure Pulse Oximetry 97 05/09/21 04:30 05/09/21 06:00 05/09/21 08:00 Temperature 37.0 C Pulse Rate 78 75 Respiratory Rate 21 H Blood Pressure 132/64 Pulse Oximetry 94 94 05/09/21 08:35 05/09/21 09:28 Temperature 35.9 C L Pulse Rate 83 94 Respiratory Rate 20 Blood Pressure 143/62 H Pulse Oximetry 94 Intake/Output Intake/Output: Intake & Output 05/06/21 05/07/21 05/08/21 05/09/21 23:59 23:59 23:59 23:59 Intake Total 340 2300 670 500 Output Total 1999 1950 2375 900 Upjudku -8014 371 -5375 -946 Meds/Results Medications: Active Medications Generic Name Dose Route Start Last Admin Trade Name Freq PRN Reason Stop Dose Admin Acetaminophen 650 mg 04/30/21 13:15 Acetaminophen 325 Mg Tablet PO Q4H PRN
[2021-05-09 13:32] LABS: Glucose Point of Care 189 mg/dl (65-105)
--- NOTE | 2021-05-09 15:04 | PM.PNCARD ---
Progress Note: A&P Assessment and Plan (1) Paroxysmal atrial fibrillation with RVR: Code(s): I48.0 - Paroxysmal atrial fibrillation Status: Acute Assessment and Plan: New onset atrial fib/flutter. Patient generally asymptomatic. CHADS2 Vasc score 4. Systemic anticoagulation advised. Continue Eliquis 5 mg b.i.d.. Due to poor control with diltiazem added metoprolol tartrate 25 mg b.i.d. Counseled pt re: PAF and tx. Converted to NSR Likely will need some long-term monitoring later as OPT to see if she has recurrence of arrhythmias and reason to stay on AC. (2) Paroxysmal SVT (supraventricular tachycardia): Code(s): I47.1 - Supraventricular tachycardia Status: Acute Assessment and Plan: This appears to be separate from identified atrial fibrillation with rapid ventricular response. Given heart rate of approximately 170 beats per minute very unlikely to be atrial flutter. Continue telemetry, metoprolol and Cardizem. (3) Pneumonia due to COVID-19 virus: Code(s): U07.1 - COVID-19; J12.82 - Pneumonia due to coronavirus disease 2018 Status: Acute Assessment and Plan: Continue supportive care, O2 supplementation, BiPAP support as required. Stable per pulmonary. Home when COVID protocol complete (4) Acute on chronic respiratory failure with hypoxia: Code(s): J96.21 - Acute and chronic respiratory failure with hypoxia Status: Acute Assessment and Plan: Patient on home O2 for COPD, still requires significant O2 supplementation. CTA chest severe emphysema moderate pneumonia limited evaluation but no PE noted. (5) Swelling of lower leg: Code(s): M79.89 - Other specified soft tissue disorders Status: Acute Assessment and Plan: Initially had edema and perhaps mild CHF, improved w/ IV furosemide. BNP 125 on admission, now minimally elevated at 315 on 05/08/2021. Chest x-ray consistent with pneumonia versus pulmonary edema. Reported improvement after initiation of IV Lasix, however. Patient does not appear to be in significant clinical decompensated heart failure at this time; edema resolved. IV Lasix to be changed to po tmr Subjective Date/time seen: 05/09/21 15:04 Interval history: Follow-up for SVT and paroxysmal atrial fibrillation with rapid ventricular response, COVID pneumonia, CHF 05/07/2021: Patient is still requiring high-flow nasal cannula. More frequent episodes of AFib with RVR heart rate up to the 170s. Patient asymptomatic otherwise. Denies chest pain, nausea vomiting. Patient states she wants to go home. Added metoprolol, change Cardizem from 180 mg daily to: 60 mg q.8 hours. 05/08/2021: Patient had AFib RVR and also SVT through the night, heart rate in the 170s, given metoprolol 5 mg IV push and started on her p.o. Cardizem early. This morning, telemetry shows AFib/flutter heart rate 112. Remains on high-flow nasal oxygen at 15 L, O2 sat 93%. Complains of SOB with activity but comfortable at rest. Requests more medicine for anxiety. ProBNP 315. Continue metoprolol and Cardizem. Date of service 05/09/2021: Very eager for discharge. If I had known how long they would keep me, I never would have come! (O2 sat ws 62% on EMS run.). Atrial flutter converted to NSR; no further PSVT. Feeling well. Review of Systems Constitutional: Constitutional: Reports no additional constitutional complaints ENT: Denies nasal congestion Cardiovascular: Cardiovascular: Denies chest pain, Denies leg edema (resolved), Reports dyspnea and Reports dyspnea on exertion Respiratory: Respiratory: Reports cough, Reports dyspnea and Reports dyspnea on exertion Gastrointestinal: Gastrointestinal: Denies abdominal pain and Reports constipation Genitourinary: Genitourinary: Denies hematuria Musculoskeletal: Musculoskel
[2021-05-09] MEDS: cefTRIAXone 2 GM in SODIUM CHLORIDE 0.9% IV 100 ML 200 ML IVPB (17:59)
[2021-05-09 20:38] LABS: Glucose Point of Care 154 mg/dl (65-105)
[2021-05-09 21:54] LABS: Glucose Point of Care 183 mg/dl (65-105)
[2021-05-09] MEDS: REMDESIVIR 100 MG/NS 250 ML 100 MG/250 ML BAG 250 MG IVPB (21:54)
[2021-05-10] VITALS (18 sets, daily range): BP systolic 132–149; BP diastolic 45–85; PULSE 64–90; RESP 18–22; TEMP 35.2–37; O2SAT 91–99
[2021-05-10 06:14] LABS: Basophils Percent Auto 0.3 % (0.2-1.2); Eosinophils Percent Auto 0.1 % (0-4.4); Hematocrit 41.7 % (37.0-47.0); Hemoglobin 12.6 g/dL (12.0-15.0); Immature Granulocyte Absolute 0.09 K/mm3 (0.00-0.031); Immature Granulocyte Percent A 0.8 % (0-0.5); Lymphocytes Absolute Auto 0.84 K/mm3 (0.9-3.2); Lymphocytes Percent Auto 7.7 % (18.3-44.2); Mean Corpuscular HGB Conc 30.2 g/dl (32-36); Mean Corpuscular Hemoglobin 26.5 pg (26-34); Mean Corpuscular Volume 87.8 fl (80-100); Mean Platelet Volume 10.5 fl (7.4-10.4); Monocytes Absolute Auto 1.2 K/mm3 (0.1-0.6); Monocytes Percent Auto 11.2 % (2.6-8.5); Neutrophils Absolute Auto 8.8 K/mm3 (1.3-6.7); Neutrophils Percent Auto 79.9 % (45.5-73.1); Platelet Count Result 406 k/mm3 (150-375); Red Blood Count 4.75 M/mm3 (4.2-5.4); Red Cell Distribution Width 15.1 % (11.5-14.5)
[2021-05-10 06:33] LABS: Alanine Aminotransferase 19 U/L (4-35); Alkaline Phosphatase 60 U/L (38-126); Anion Gap 9 mmol/L (8-16); Aspartate Amino Transferase 23 U/L (14-36); Bilirubin,Total 0.7 mg/dL (0.2-1.3); Blood Urea Nitrogen 22 mg/dL (7-17); CRP < 0.5 mg/dL (<1.0); Calcium 8.7 mg/dL (8.4-10.2); Carbon Dioxide 35 mmol/L (22-30); Chloride 89 mmol/L (98-107); D Dimer 1.03 ug/mL (<0.48); Estimated CRCL calculation 85 ml/min; Estimated Glomerular Filt Rate > 60; Glucose 129 mg/dL (65-110); Potassium 3.1 mmol/L (3.4-5.0); Sodium 133 mmol/L (137-145)
[2021-05-10] MEDS: ZAFIRLUKAST 20 MG TABLET PO ×2 (06:40→15:41)
[2021-05-10] MEDS: dilTIAZem HCL 60 MG TABLET PO ×2 (06:40→13:30)
[2021-05-10] MEDS: LORazepam (*CRX) 0.5 MG TABLET PO ×3 (06:40→22:13)
[2021-05-10 08:33] LABS: Glucose Point of Care 126 mg/dl (65-105)
--- NOTE | 2021-05-10 09:33 | PM.PNPUL ---
Progress Note: A&P Assessment and Plan (1) Acute on chronic respiratory failure with hypoxia: Code(s): J96.21 - Acute and chronic respiratory failure with hypoxia Status: Acute Assessment and Plan: 66-year-old female with advanced centrilobular emphysema by chest CT, COVID 19 pneumonia, history of AFib and congestive heart failure on treatment, still requiring high-flow nasal cannula. Respiratory status otherwise stable over the last 48 hours. CRP and D-dimers low. Chest x-ray still showing infiltrates with no significant clearing over the last 5 days. Continue with same regimen, discontinue non-rebreather mask and a measured O2 saturation on just high-flow nasal cannula; out of bed to chair. (2) Obstructive sleep apnea on CPAP: Code(s): G47.33 - Obstructive sleep apnea (adult) (pediatric); Z99.89 - Dependence on other enabling machines and devices Status: Acute (3) Pneumonia due to COVID-19 virus: Code(s): U07.1 - COVID-19; J12.82 - Pneumonia due to coronavirus disease 2019 Status: Acute (4) COPD with emphysema: Qualifiers: Emphysema type: centrilobular Qualified Code(s): J43.2 - Centrilobular emphysema Code(s): J43.9 - Emphysema, unspecified Status: Acute Subjective Date/time seen: 05/10/21 09:33 Patient has no new respiratory complaints. remains on high-flow nasal cannula with O2 sat in the high 90%. Mild cough, no wheezing. Shortness of breath unchanged. She is on treatment for congestive heart failure / AFib. Also on empiric antibiotic. Review of Systems Review of Systems: All systems reviewed & are unremarkable except as noted in HPI and below Exam Narrative: GENERAL APPEARANCE: Well developed, well nourished, alert and cooperative, and appears to be in mild respiratory distress while on high flow O2. SKIN: Inspection of the skin reveals no rashes, ulcerations or petechiae. HEENT: Sclerae anicteric and conjunctivae pink and moist. Extraocular movements were intact and pupils were equal, round. NECK: Supple. There was no thyroid enlargement, and no tenderness, or masses were felt. LUNGS: Distant breath sounds anteriorly, rare crackles at bases posteriorly no wheezing. CARDIAC: There was a regular rate and rhythm without any murmurs, gallops, rubs. ABDOMEN: Soft and nontender with normal bowel sounds. LYMPH NODES: No lymphadenopathy was appreciated in the neck. EXTREMITIES: No cyanosis, clubbing or edema. NEUROLOGIC: Alert and oriented x 3. Normal affect. Objective Data Vital Signs Vital Signs: Vital Signs - 24 hr 05/09/21 10:00 05/09/21 12:00 05/09/21 13:32 Temperature 35.7 C L Pulse Rate 89 81 81 Respiratory Rate 20 Blood Pressure 142/62 H Pulse Oximetry 99 92 05/09/21 14:00 05/09/21 16:00 05/09/21 17:18 Temperature 36.7 C Pulse Rate 73 80 79 Respiratory Rate 20 Blood Pressure 152/65 H Pulse Oximetry 99 99 05/09/21 18:00 05/09/21 20:00 05/09/21 21:17 Temperature 36.9 C Pulse Rate 73 84 80 Respiratory Rate 22 H 22 H Blood Pressure 139/53 L Pulse Oximetry 98 05/09/21 21:37 05/09/21 22:00 05/09/21 23:11 Temperature 36.3 C L Pulse Rate 106 H 80 73 Respiratory Rate 22 H Blood Pressure 135/59 L Pulse Oximetry 92 05/10/21 00:00 05/10/21 02:00 05/10/21 04:00 Temperature 36.1 C L Pulse Rate 66 68 64 Respiratory Rate 22 H Blood Pressure 141/71 H Pulse Oximetry 92 96 05/10/21 06:00 05/10/21 08:42 Temperature 35.2 C L Pulse Rate 81 68 Respiratory Rate 21 H Blood Pressure 144/85 H Pulse Oximetry 99 Intake/Output Intake/Output: Intake & Output 05/07/21 05/08/21 05/09/21 05/10/21 23:59 23:59 23:59 23:59 Intake Total 2300 920 2720 800 Output Total 1550 2375 2600 1000 Balance 750 -1455 120 -200 Meds/Results Medications: Active Medications Generic Name Dose Route Start Last Admin Trade Name Freq PRN Reason Stop Dose Admin Acetaminophen 650 mg 1
[2021-05-10] MEDS: ASPIRIN 81 MG ENTERIC TABLET PO (10:14)
[2021-05-10] MEDS: APIXABAN 5 MG TABLET PO ×2 (10:14→22:07)
[2021-05-10] MEDS: ATORVASTATIN 10 MG TABLET PO (10:15)
[2021-05-10] MEDS: CITALOPRAM HYDROBROMIDE 20 MG TABLET PO (10:15)
[2021-05-10] MEDS: DEXAMETHASONE SOD PHOS INJ 4 MG/ML VIAL 6 MG IV PUSH (10:15)
[2021-05-10] MEDS: METOPROLOL TARTRATE 25 MG TABLET PO ×2 (10:16→22:07)
[2021-05-10] MEDS: HYDROcodone/acetaminophen (*CRX) 5-325 MG TABLET 1 TAB PO ×3 (10:16→22:12)
[2021-05-10] MEDS: ONDANSETRON INJ 4 MG/2 ML VIAL IV PUSH ×2 (10:16→22:07)
[2021-05-10] MEDS: PANTOPRAZOLE 40 MG TABLET PO (10:17)
--- NOTE | 2021-05-10 11:01 | PM.IMPN ---
Progress Note: A&P Assessment and Plan (1) Acute and chronic respiratory failure: Code(s): J96.20 - Acute and chronic respiratory failure, unspecified whether with hypoxia or hypercapnia Status: Acute Assessment and Plan: Patient has chronic respiratory failure on 5 L nasal cannula due to severe emphysema. Her acute respiratory flare secondary to COVID pneumonia. CTA of the chest (05/05) was negative for PE. He has been started on IV antibiotics for potential secondary bacterial pneumonia. No evidence of right ventricular abnormalities in PA systolic pressure could not be assessed by echocardiogram on 05/03/2021. Thus unclear if she has pulmonary hypertension. She is DNR. She is refusing BiPAP. Wean oxygen as tolerated. Pulmonology consulted and appreciate their input. (2) Pneumonia due to COVID-19 virus: Code(s): U07.1 - COVID-19; J12.82 - Pneumonia due to coronavirus disease 2018 Status: Acute Assessment and Plan: Patient presents with shortness of breath. She was vaccinated with [employer] earlier in the year but has not had a booster. She completed dexamethasone today. She also completed 10 days of remdesivir. Tocilizumab was given once on 05/02/2021. Pulmonology following and appreciate thier input. Wean O2 as toelrated (3) Paroxysmal atrial fibrillation with RVR: Code(s): I48.0 - Paroxysmal atrial fibrillation Status: Acute Assessment and Plan: Patient developed new onset atrial fibrillation. She has converted to normal sinus rhythm. Telemetry reviewed showing maintaining normal sinus rhythm. She remains on Cardizem and Lopressor. She is on Eliquis for stroke prophylaxis. He also appears that she has tachycardia that is more consistent with SVT then AFib/Flutter. Echocardiogram (05/03) shows EF of 55-60% grade 1 diastolic dysfunction and septal wall motion abnormality. Unable to assess PA systolic pressures. Patient does not have bundle branch morphology. CTA of the chest (05/05) showed no pulmonary emboli. Will check TSH. Appreciate cardiology input. Consider further workup due to the wall motion abnormality. (4) Paroxysmal SVT (supraventricular tachycardia): Code(s): I47.1 - Supraventricular tachycardia Status: Acute Assessment and Plan: As above (5) Obstructive sleep apnea on CPAP: Code(s): G47.33 - Obstructive sleep apnea (adult) (pediatric); Z99.89 - Dependence on other enabling machines and devices Status: Acute Assessment and Plan: Patient refusing BiPAP at night. Continue supportive care. (6) COPD with emphysema: Qualifiers: Emphysema type: centrilobular Qualified Code(s): J43.2 - Centrilobular emphysema Code(s): J43.9 - Emphysema, unspecified Status: Acute Assessment and Plan: No acute bronchospasm. CTA chest shows severe emphysema. Continue treatment as detailed above. (7) Diet-controlled diabetes mellitus: Code(s): E11.9 - Type 2 diabetes mellitus without complications Status: Acute Assessment and Plan: A1c 6.4. The patient's blood glucose was reviewed on 05/10 Glucose remains well controlled. Continue AccuCheks covering with sliding scale. Hypoglycemia protocol available as needed. Continue current medications. (8) Leukocytosis: Code(s): D72.829 - Elevated white blood cell count, unspecified Status: Acute Assessment and Plan: White count climbed to 13,600. Concern for bacterial pneumonia. Patient started on IV antibiotics. White count trending downward. Appreciate pulmonary input. (9) DVT prophylaxis: Code(s): Z29.9 - Encounter for prophylactic measures, unspecified Status: Acute Assessment and Plan: Eliquis (10) Elevated LFTs: Code(s): R79.89 - Other specified abnormal findings of blood chemistry Status: Acute Assessment and Plan: AST 80 for an
[2021-05-10 12:06] LABS: Glucose Point of Care 131 mg/dl (65-105)
[2021-05-10] MEDS: FUROSEMIDE INJ 40 MG/4 ML VIAL IV PUSH (13:29)
[2021-05-10] MEDS: POTASSIUM CHLORIDE 20 MEQ PACKET (FOR LIQUID) 40 MEQ PO (13:30)
--- NOTE | 2021-05-10 15:21 | PM.PNCARD ---
Progress Note: A&P Assessment and Plan (1) Paroxysmal atrial fibrillation with RVR: Code(s): I48.0 - Paroxysmal atrial fibrillation Status: Acute Assessment and Plan: New onset atrial fib/flutter. Patient generally asymptomatic. CHADS2 Vasc score 4. Systemic anticoagulation advised. Continue Eliquis 5 mg b.i.d.. Due to poor control with diltiazem added metoprolol tartrate 25 mg b.i.d. Counseled pt re: PAF and tx. Converted to NSR. Remains in sinus rhythm now. Will shift from short acting diltiazem to long acting. Likely will need some long-term monitoring later as OPT to see if she has recurrence of arrhythmias and reason to stay on AC. (2) Paroxysmal SVT (supraventricular tachycardia): Code(s): I47.1 - Supraventricular tachycardia Status: Acute Assessment and Plan: This appears to be separate from identified atrial fibrillation with rapid ventricular response. Given heart rate of approximately 170 beats per minute very unlikely to be atrial flutter. Continue telemetry, metoprolol and Cardizem. (3) Pneumonia due to COVID-19 virus: Code(s): U07.1 - COVID-19; J12.82 - Pneumonia due to coronavirus disease 2018 Status: Acute Assessment and Plan: Continue supportive care, O2 supplementation, BiPAP support as required. Stable per pulmonary. Home when COVID protocol complete (4) Acute on chronic respiratory failure with hypoxia: Code(s): J96.21 - Acute and chronic respiratory failure with hypoxia Status: Acute Assessment and Plan: Patient on home O2 for COPD, still requires significant O2 supplementation. CTA chest severe emphysema moderate pneumonia limited evaluation but no PE noted. (5) Swelling of lower leg: Code(s): M79.89 - Other specified soft tissue disorders Status: Acute Assessment and Plan: Initially had edema and perhaps mild CHF, improved w/ IV furosemide. BNP 125 on admission, now minimally elevated at 315 on 05/08/2021. Chest x-ray consistent with pneumonia versus pulmonary edema. Reported improvement after initiation of IV Lasix, however. Patient does not appear to be in significant clinical decompensated heart failure at this time; edema resolved. Lasix decreased to daily today, will change to oral tomorrow. Additional Plan We were asked to see this patient for atrial fibrillation and PSVT. Her arrhythmias have been managed with initiation of metoprolol and diltiazem. She has converted to sinus rhythm at this point. Her primary reason for hospitalization is COVID 19 pneumonia. No active cardiac issues. We will sign off. Please do not hesitate to contact us if we can be of assistance in the care of this patient in any way Subjective Date/time seen: 05/10/21 15:21 Interval history: Follow-up for SVT and paroxysmal atrial fibrillation with rapid ventricular response, COVID pneumonia, CHF 05/07/2021: Patient is still requiring high-flow nasal cannula. More frequent episodes of AFib with RVR heart rate up to the 170s. Patient asymptomatic otherwise. Denies chest pain, nausea vomiting. Patient states she wants to go home. Added metoprolol, change Cardizem from 180 mg daily to: 60 mg q.8 hours. 05/08/2021: Patient had AFib RVR and also SVT through the night, heart rate in the 170s, given metoprolol 5 mg IV push and started on her p.o. Cardizem early. This morning, telemetry shows AFib/flutter heart rate 112. Remains on high-flow nasal oxygen at 15 L, O2 sat 93%. Complains of SOB with activity but comfortable at rest. Requests more medicine for anxiety. ProBNP 315. Continue metoprolol and Cardizem. Date of service 05/09/2021: Very eager for discharge. If I had known how long they would keep me, I never would have come! (O2 sat ws 62% on EMS run.). Atrial flutter converted to NSR; no further
[2021-05-10 16:19] LABS: Glucose Point of Care 173 mg/dl (65-105)
--- NOTE | 2021-05-10 19:25 | PCRCNOTE ---
Window of time for administration has passed. See next scheduled administration.
[2021-05-10 20:46] LABS: Glucose Point of Care 162 mg/dl (65-105)
[2021-05-11] VITALS (15 sets, daily range): BP systolic 110–148; BP diastolic 46–63; PULSE 70–107; RESP 16–93; TEMP 36.1–36.5; O2SAT 20–94
[2021-05-11] MEDS: HYDROcodone/acetaminophen (*CRX) 5-325 MG TABLET 1 TAB PO ×4 (04:20→21:01)
[2021-05-11 05:06] LABS: Basophils Percent Auto 0.2 % (0.2-1.2); Hematocrit 45.4 % (37.0-47.0); Hemoglobin 13.8 g/dL (12.0-15.0); Immature Granulocyte Absolute 0.09 K/mm3 (0.00-0.031); Immature Granulocyte Percent A 0.8 % (0-0.5); Lymphocytes Absolute Auto 0.75 K/mm3 (0.9-3.2); Lymphocytes Percent Auto 6.3 % (18.3-44.2); Mean Corpuscular HGB Conc 30.4 g/dl (32-36); Mean Corpuscular Volume 88.8 fl (80-100); Mean Platelet Volume 11.2 fl (7.4-10.4); Monocytes Absolute Auto 1.2 K/mm3 (0.1-0.6); Monocytes Percent Auto 10.4 % (2.6-8.5); Neutrophils Absolute Auto 9.8 K/mm3 (1.3-6.7); Neutrophils Percent Auto 82.3 % (45.5-73.1); Platelet Count Result 475 k/mm3 (150-375); Red Blood Count 5.11 M/mm3 (4.2-5.4); Red Cell Distribution Width 15.2 % (11.5-14.5); White Blood Count 11.9 K/mm3 (4.5-10.0)
[2021-05-11 05:43] LABS: Alanine Aminotransferase 21 U/L (4-35); Albumin Level 4.4 g/dL (3.5-5.1); Alkaline Phosphatase 67 U/L (38-126); Anion Gap 9 mmol/L (8-16); Aspartate Amino Transferase 31 U/L (14-36); Bilirubin,Total 0.8 mg/dL (0.2-1.3); Blood Urea Nitrogen 21 mg/dL (7-17); Calcium 9.1 mg/dL (8.4-10.2); Carbon Dioxide 36 mmol/L (22-30); Chloride 90 mmol/L (98-107); Estimated CRCL calculation 82 ml/min; Estimated Glomerular Filt Rate > 60; Glucose 130 mg/dL (65-110); Magnesium 2.4 mg/dL (1.6-2.3); Phosphorus 3.4 mg/dL (2.5-4.5); Potassium 3.6 mmol/L (3.4-5.0); Sodium 135 mmol/L (137-145)
[2021-05-11] MEDS: LORazepam (*CRX) 0.5 MG TABLET PO ×3 (05:46→21:01)
[2021-05-11] MEDS: ZAFIRLUKAST 20 MG TABLET PO ×2 (06:04→17:36)
[2021-05-11 06:30] LABS: Thyroid Stimulating Hormone Reflex 0.043 uIU/mL (0.465-4.68)
[2021-05-11 08:48] LABS: Glucose Point of Care 104 mg/dl (65-105)
[2021-05-11] MEDS: CITALOPRAM HYDROBROMIDE 20 MG TABLET PO (09:27)
[2021-05-11] MEDS: ATORVASTATIN 10 MG TABLET PO (09:28)
[2021-05-11] MEDS: FUROSEMIDE 40 MG TABLET PO (09:28)
[2021-05-11] MEDS: PANTOPRAZOLE 40 MG TABLET PO (09:29)
[2021-05-11] MEDS: ASPIRIN 81 MG ENTERIC TABLET PO (09:29)
[2021-05-11] MEDS: METOPROLOL TARTRATE 25 MG TABLET PO ×2 (09:29→21:00)
[2021-05-11] MEDS: APIXABAN 5 MG TABLET PO ×2 (09:29→21:00)
[2021-05-11] MEDS: FLUTICASONE/UMECLIDIN/VILANTER 100-62.5-25 MCG ELLIPTA 1 PUFF INHALATION (09:45)
--- NOTE | 2021-05-11 10:09 | PM.PNPUL ---
Progress Note: A&P Assessment and Plan (1) Acute on chronic respiratory failure with hypoxia: Code(s): J96.21 - Acute and chronic respiratory failure with hypoxia Status: Acute Assessment and Plan: 66-year-old female with advanced centrilobular emphysema by chest CT, COVID 19 pneumonia, history of AFib and congestive heart failure on treatment, still requiring high-flow nasal cannula. Respiratory status otherwise stable over the last 48 hours. CRP and D-dimers low. Chest x-ray still showing infiltrates with no significant clearing over the last [address] patient on high-flow nasal cannula at 15 liters/minute and titrate flow down if tolerated; out of bed to chair. (2) Obstructive sleep apnea on CPAP: Code(s): G47.33 - Obstructive sleep apnea (adult) (pediatric); Z99.89 - Dependence on other enabling machines and devices Status: Acute (3) Pneumonia due to COVID-19 virus: Code(s): U07.1 - COVID-19; J12.82 - Pneumonia due to coronavirus disease 2019 Status: Acute (4) COPD with emphysema: Qualifiers: Emphysema type: centrilobular Qualified Code(s): J43.2 - Centrilobular emphysema Code(s): J43.9 - Emphysema, unspecified Status: Acute Subjective Date/time seen: 05/11/21 10:09 patient has no new respiratory symptoms. Currently on just non rebreathing mask with a O2 sat greater than 90%. Mild cough. No significant change in shortness of breath. Review of Systems Review of Systems: All systems reviewed & are unremarkable except as noted in HPI and below Exam Narrative: GENERAL APPEARANCE: Well developed, well nourished, alert and cooperative, and appears to be in mild respiratory distress while on high flow O2. SKIN: Inspection of the skin reveals no rashes, ulcerations or petechiae. HEENT: Sclerae anicteric and conjunctivae pink and moist. Extraocular movements were intact and pupils were equal, round. NECK: Supple. There was no thyroid enlargement, and no tenderness, or masses were felt. LUNGS: Distant breath sounds anteriorly, rare crackles at bases posteriorly no wheezing. CARDIAC: There was a regular rate and rhythm without any murmurs, gallops, rubs. ABDOMEN: Soft and nontender with normal bowel sounds. LYMPH NODES: No lymphadenopathy was appreciated in the neck. EXTREMITIES: No cyanosis, clubbing or edema. NEUROLOGIC: Alert and oriented x 3. Normal affect. Objective Data Vital Signs Vital Signs: Vital Signs - 24 hr 05/10/21 10:16 05/10/21 12:00 05/10/21 12:13 Temperature 36.7 C Pulse Rate 80 70 73 Respiratory Rate 20 Blood Pressure 149/60 H Pulse Oximetry 96 96 05/10/21 16:00 05/10/21 16:31 05/10/21 16:56 Temperature 37.0 C Pulse Rate 74 74 77 Respiratory Rate 18 Blood Pressure 143/66 H Pulse Oximetry 91 95 93 05/10/21 18:00 05/10/21 19:55 05/10/21 20:00 Temperature 36.3 C L Pulse Rate 78 77 78 Respiratory Rate 22 H Blood Pressure 132/58 L Pulse Oximetry 92 94 05/10/21 22:00 05/10/21 22:07 05/10/21 23:57 Temperature 36.4 C Pulse Rate 79 80 90 Respiratory Rate 22 H Blood Pressure 136/45 L Pulse Oximetry 94 05/11/21 00:00 05/11/21 02:00 05/11/21 04:00 Temperature 36.5 C Pulse Rate 88 70 73 Respiratory Rate 24 H Blood Pressure 148/59 H Pulse Oximetry 94 05/11/21 06:00 05/11/21 08:00 05/11/21 09:29 Temperature 36.2 C L Pulse Rate 76 79 76 Respiratory Rate 93 H Blood Pressure 140/58 L Pulse Oximetry 20 L Intake/Output Intake/Output: Intake & Output 05/08/21 05/09/21 05/10/21 05/11/21 23:59 23:59 23:59 23:59 Intake Total 920 2720 2780 500 Output Total 2375 2600 3000 950 Balance -1455 120 220 450 Meds/Results Medications: Active Medications Generic Name Dose Route Start Last Admin Trade Name Freq PRN Reason Stop Dose Admin Acetaminophen 650 mg 05/10/21 11:23 Acetaminophen 325 Mg Tablet PO Q4H PRN Mild Pain (1-5) Or
[2021-05-11 11:02] LABS: Free T4 Free Thyroxine Reflex 1.92 ng/dL (0.78-2.19)
[2021-05-11 12:40] LABS: Glucose Point of Care 142 mg/dl (65-105)
[2021-05-11 13:53] LABS: Total Triiodothyronine (T3) 1.13 NG/ML (0.97-1.69)
--- NOTE | 2021-05-11 15:03 | PM.IMPN ---
Progress Note: A&P Assessment and Plan (1) Acute and chronic respiratory failure: Code(s): J96.20 - Acute and chronic respiratory failure, unspecified whether with hypoxia or hypercapnia Status: Acute Assessment and Plan: Patient has chronic respiratory failure on 5 L nasal cannula due to severe emphysema. Her acute respiratory flare secondary to COVID pneumonia. CTA of the chest (05/05) was negative for PE. He has been started on IV antibiotics for potential secondary bacterial pneumonia. No evidence of right ventricular abnormalities and PA systolic pressure could not be assessed by echocardiogram on 05/03/2021. Thus unclear if she has pulmonary hypertension. She is DNR. She is refusing BiPAP. Wean oxygen as tolerated. Pulmonology consulted and appreciate their input. (2) Pneumonia due to COVID-19 virus: Code(s): U07.1 - COVID-19; J12.82 - Pneumonia due to coronavirus disease 2018 Status: Acute Assessment and Plan: Patient presents with shortness of breath. She was vaccinated with [employer] earlier in the year but has not had a booster. She completed dexamethasone and remdesivir. Tocilizumab was given once on 05/02/2021. Pulmonology following and appreciate their input. Wean O2 as tolerated. (3) Paroxysmal atrial fibrillation with RVR: Code(s): I48.0 - Paroxysmal atrial fibrillation Status: Acute Assessment and Plan: Patient developed new onset atrial fibrillation. She has converted to normal sinus rhythm. Telemetry reviewed showing maintaining normal sinus rhythm. She remains on Cardizem and Lopressor. She is on Eliquis for stroke prophylaxis. He also appears that she has tachycardia that is more consistent with SVT then AFib/Flutter. Echocardiogram (05/03) shows EF of 55-60% grade 1 diastolic dysfunction and septal wall motion abnormality. Unable to assess PA systolic pressures. Patient does not have bundle branch morphology. CTA of the chest (05/05) showed no pulmonary emboli. TSH low but nml FT4 so doubt hyperthyroidism. Appreciate cardiology input. Consider further workup due to the wall motion abnormality once she is better. (4) Paroxysmal SVT (supraventricular tachycardia): Code(s): I47.1 - Supraventricular tachycardia Status: Acute Assessment and Plan: As above (5) Obstructive sleep apnea on CPAP: Code(s): G47.33 - Obstructive sleep apnea (adult) (pediatric); Z99.89 - Dependence on other enabling machines and devices Status: Acute Assessment and Plan: Patient refusing BiPAP at night. Continue supportive care. (6) COPD with emphysema: Qualifiers: Emphysema type: centrilobular Qualified Code(s): J43.2 - Centrilobular emphysema Code(s): J43.9 - Emphysema, unspecified Status: Acute Assessment and Plan: No wheezing. CTA chest shows severe emphysema. Continue treatment as detailed above. (7) Diet-controlled diabetes mellitus: Code(s): E11.9 - Type 2 diabetes mellitus without complications Status: Acute Assessment and Plan: A1c 6.4. The patient's blood glucose was reviewed on 05/11 Glucose remains well controlled. Continue AccuCheks covering with sliding scale. Hypoglycemia protocol available as needed. Continue current medications. (8) Leukocytosis: Code(s): D72.829 - Elevated white blood cell count, unspecified Status: Acute Assessment and Plan: White count climbed to 13,600. Concern for bacterial pneumonia. Patient started on IV antibiotics. White count trending downward. Appreciate pulmonary input. (9) DVT prophylaxis: Code(s): Z29.9 - Encounter for prophylactic measures, unspecified Status: Acute Assessment and Plan: Eliquis (10) Elevated LFTs: Code(s): R79.89 - Other specified abnormal findings of blood chemistry Status: Acute Assessment and Plan: AST 80 for
[2021-05-11 16:32] LABS: Glucose Point of Care 164 mg/dl (65-105)
[2021-05-11 20:45] LABS: Glucose Point of Care 140 mg/dl (65-105)
[2021-05-12] VITALS (17 sets, daily range): BP systolic 119–148; BP diastolic 45–75; PULSE 71–166; RESP 20–24; TEMP 36.1–36.5; O2SAT 85–96
[2021-05-12] MEDS: HYDROcodone/acetaminophen (*CRX) 5-325 MG TABLET 1 TAB PO ×5 (03:45→21:52)
[2021-05-12 05:07] LABS: Basophils Percent Auto 0.2 % (0.2-1.2); Eosinophils Absolute Auto 0.2 K/mm3 (0-0.3); Eosinophils Percent Auto 1.9 % (0-4.4); Hematocrit 44.2 % (37.0-47.0); Hemoglobin 13.4 g/dL (12.0-15.0); Immature Granulocyte Absolute 0.08 K/mm3 (0.00-0.031); Immature Granulocyte Percent A 0.8 % (0-0.5); Lymphocytes Absolute Auto 1.36 K/mm3 (0.9-3.2); Lymphocytes Percent Auto 13.5 % (18.3-44.2); Mean Corpuscular HGB Conc 30.3 g/dl (32-36); Mean Corpuscular Hemoglobin 26.7 pg (26-34); Mean Corpuscular Volume 88.2 fl (80-100); Mean Platelet Volume 11.1 fl (7.4-10.4); Monocytes Absolute Auto 1.3 K/mm3 (0.1-0.6); Neutrophils Absolute Auto 7.1 K/mm3 (1.3-6.7); Neutrophils Percent Auto 70.6 % (45.5-73.1); Platelet Count Result 393 k/mm3 (150-375); Red Blood Count 5.01 M/mm3 (4.2-5.4); Red Cell Distribution Width 15.3 % (11.5-14.5)
[2021-05-12 05:47] LABS: Alanine Aminotransferase 21 U/L (4-35); Alkaline Phosphatase 63 U/L (38-126); Anion Gap 8 mmol/L (8-16); Aspartate Amino Transferase 31 U/L (14-36); Bilirubin,Total 0.9 mg/dL (0.2-1.3); Blood Urea Nitrogen 22 mg/dL (7-17); CRP < 0.5 mg/dL (<1.0); Calcium 8.8 mg/dL (8.4-10.2); Carbon Dioxide 38 mmol/L (22-30); Chloride 90 mmol/L (98-107); Estimated CRCL calculation 75 ml/min; Estimated Glomerular Filt Rate > 60; Glucose 128 mg/dL (65-110); Lactate Dehydrogenase 537 U/L (313-618); Potassium 3.1 mmol/L (3.4-5.0); Sodium 136 mmol/L (137-145)
[2021-05-12] MEDS: LORazepam (*CRX) 0.5 MG TABLET PO ×3 (06:16→21:52)
[2021-05-12] MEDS: ZAFIRLUKAST 20 MG TABLET PO ×2 (06:16→16:43)
[2021-05-12] MEDS: FLUTICASONE/UMECLIDIN/VILANTER 100-62.5-25 MCG ELLIPTA 1 PUFF INHALATION ×2 (08:08→20:00)
--- NOTE | 2021-05-12 08:30 | PM.PNPUL ---
Progress Note: A&P Assessment and Plan (1) Acute on chronic respiratory failure with hypoxia: Code(s): J96.21 - Acute and chronic respiratory failure with hypoxia Status: Acute Assessment and Plan: 66-year-old female with advanced centrilobular emphysema by chest CT, COVID 19 pneumonia, history of AFib and congestive heart failure on treatment, still requiring high-flow nasal cannula. Respiratory status improved over the last 24 hours. patient continues to have crackles bilaterally on auscultation. All inflammatory indices significantly decreased. Last chest x-ray still showing infiltrates with no significant clearing over the last 5 days. Continue with current treatment, out of bed to chair attempt to lower FiO2 if tolerated. Will sign off, call if new problems arise. (2) Obstructive sleep apnea on CPAP: Code(s): G47.33 - Obstructive sleep apnea (adult) (pediatric); Z99.89 - Dependence on other enabling machines and devices Status: Acute (3) Pneumonia due to COVID-19 virus: Code(s): U07.1 - COVID-19; J12.82 - Pneumonia due to coronavirus disease 2019 Status: Acute (4) COPD with emphysema: Qualifiers: Emphysema type: centrilobular Qualified Code(s): J43.2 - Centrilobular emphysema Code(s): J43.9 - Emphysema, unspecified Status: Acute Subjective Date/time seen: 05/12/21 08:30 patient without new respiratory symptoms. Currently on lower FiO2, on 10 L per minute high-flow nasal cannula. Inflammatory indices all down. Receiving antibiotic treatment for possible bacterial coinfection. Review of Systems Review of Systems: All systems reviewed & are unremarkable except as noted in HPI and below Exam Narrative: GENERAL APPEARANCE: Well developed, well nourished, alert and cooperative, and appears to be in mild respiratory distress while on high flow O2. SKIN: Inspection of the skin reveals no rashes, ulcerations or petechiae. HEENT: Sclerae anicteric and conjunctivae pink and moist. Extraocular movements were intact and pupils were equal, round. NECK: Supple. There was no thyroid enlargement, and no tenderness, or masses were felt. LUNGS: Distant breath sounds anteriorly, rare crackles at bases posteriorly no wheezing. CARDIAC: There was a regular rate and rhythm without any murmurs, gallops, rubs. ABDOMEN: Soft and nontender with normal bowel sounds. LYMPH NODES: No lymphadenopathy was appreciated in the neck. EXTREMITIES: No cyanosis, clubbing or edema. NEUROLOGIC: Alert and oriented x 3. Normal affect. Objective Data Vital Signs Vital Signs: Vital Signs - 24 hr 05/11/21 08:45 05/11/21 09:29 05/11/21 10:00 Temperature Pulse Rate 74 76 85 Respiratory Rate Blood Pressure Pulse Oximetry 92 05/11/21 12:00 05/11/21 16:00 05/11/21 20:00 Temperature 36.4 C L 36.3 C L 36.3 C L Pulse Rate 74 73 88 Respiratory Rate 20 16 24 H Blood Pressure 140/52 L 127/46 L 146/55 H Pulse Oximetry 93 93 92 05/11/21 20:50 05/11/21 21:00 05/11/21 22:00 Temperature Pulse Rate 80 82 107 H Respiratory Rate Blood Pressure Pulse Oximetry 92 05/11/21 23:26 05/12/21 00:00 05/12/21 02:00 Temperature 36.1 C L Pulse Rate 100 72 72 Respiratory Rate 24 H Blood Pressure 110/63 Pulse Oximetry 90 05/12/21 04:00 05/12/21 06:00 05/12/21 08:08 Temperature 36.2 C L Pulse Rate 81 139 H 99 Respiratory Rate 24 H Blood Pressure 144/72 H Pulse Oximetry 88 L 91 Intake/Output Intake/Output: Intake & Output 05/09/21 05/10/21 05/11/21 05/12/21 23:59 23:59 23:59 23:59 Intake Total 2720 2780 1640 Output Total 2600 3000 1550 450 Balance 120 -220 90 -450 Meds/Results Medications: Active Medications Generic Name Dose Route Start Last Admin Trade Name Freq PRN Reason Stop Dose Admin Acetaminophen 650 mg 05/10/21 11:23 Acetaminophen 325 Mg Tablet PO Q4H PRN Mild Pain (1-5) Or Fever Hydrocodone
[2021-05-12] MEDS: ASPIRIN 81 MG ENTERIC TABLET PO (08:43)
[2021-05-12] MEDS: APIXABAN 5 MG TABLET PO ×2 (08:43→21:51)
[2021-05-12] MEDS: CITALOPRAM HYDROBROMIDE 20 MG TABLET PO (08:43)
[2021-05-12] MEDS: PANTOPRAZOLE 40 MG TABLET PO (08:44)
[2021-05-12] MEDS: ATORVASTATIN 10 MG TABLET PO (08:44)
[2021-05-12] MEDS: FUROSEMIDE 40 MG TABLET PO (08:44)
[2021-05-12] MEDS: METOPROLOL TARTRATE 25 MG TABLET PO (08:44)
[2021-05-12 09:14] LABS: Glucose Point of Care 118 mg/dl (65-105)
--- NOTE | 2021-05-12 11:41 | PM.IMPN ---
Progress Note: A&P Assessment and Plan (1) Acute and chronic respiratory failure: Code(s): J96.20 - Acute and chronic respiratory failure, unspecified whether with hypoxia or hypercapnia Status: Acute Assessment and Plan: Patient has chronic respiratory failure on 5 L nasal cannula due to severe emphysema. Her acute respiratory flare secondary to COVID pneumonia. CTA of the chest (05/05) was negative for PE. He has been started on IV antibiotics 05/06 for potential secondary bacterial pneumonia. No evidence of right ventricular abnormalities and PA systolic pressure could not be assessed by echocardiogram on 05/03/2021. Thus unclear if she has pulmonary hypertension. She is DNR. Wean oxygen as tolerated. Pulmonology consulted and appreciate their input. (2) Pneumonia due to COVID-19 virus: Code(s): U07.1 - COVID-19; J12.82 - Pneumonia due to coronavirus disease 2019 Status: Acute Assessment and Plan: Patient presents with shortness of breath. She was vaccinated with [employer] earlier in the year but has not had a booster. She completed dexamethasone and remdesivir. Tocilizumab was given once on 05/02/2021. Pulmonology following and appreciate their input. Wean O2 as tolerated. (3) Paroxysmal atrial fibrillation with RVR: Code(s): I48.0 - Paroxysmal atrial fibrillation Status: Acute Assessment and Plan: Patient developed new onset atrial fibrillation. She converted to normal sinus rhythm but still with episodes of AFib. She remains on Cardizem and Lopressor. She is on Eliquis for stroke prophylaxis. She also had tachycardia that was more consistent with SVT then AFib/Flutter. Echocardiogram (05/03) shows EF of 55-60% grade 1 diastolic dysfunction and septal wall motion abnormality. Unable to assess PA systolic pressures. Patient does not have bundle branch morphology. CTA of the chest (05/05) showed no pulmonary emboli. TSH low but nml FT4 so doubt hyperthyroidism. Appreciate cardiology input. Consider further workup due to the wall motion abnormality once she is better. (4) Paroxysmal SVT (supraventricular tachycardia): Code(s): I47.1 - Supraventricular tachycardia Status: Acute Assessment and Plan: As above (5) Obstructive sleep apnea on CPAP: Code(s): G47.33 - Obstructive sleep apnea (adult) (pediatric); Z99.89 - Dependence on other enabling machines and devices Status: Acute Assessment and Plan: Patient refusing BiPAP at night. Continue supportive care. (6) COPD with emphysema: Qualifiers: Emphysema type: centrilobular Qualified Code(s): J43.2 - Centrilobular emphysema Code(s): J43.9 - Emphysema, unspecified Status: Acute Assessment and Plan: No wheezing. CTA chest shows severe emphysema. Continue treatment as detailed above. (7) Diet-controlled diabetes mellitus: Code(s): E11.9 - Type 2 diabetes mellitus without complications Status: Acute Assessment and Plan: A1c 6.4. The patient's blood glucose was reviewed on 05/12 Glucose remains well controlled. Continue AccuCheks covering with sliding scale. Hypoglycemia protocol available as needed. Continue current medications. (8) Leukocytosis: Code(s): D72.829 - Elevated white blood cell count, unspecified Status: Acute Assessment and Plan: White count climbed to 13,600. Concern for bacterial pneumonia. Patient started on IV antibiotics. White count trending downward. Appreciate pulmonary input. (9) Elevated LFTs: Code(s): R79.89 - Other specified abnormal findings of blood chemistry Status: Acute Assessment and Plan: AST 80 for an ALT 55 on admission. Levels have normalized. Most likely related to COVID-19. Continue to monitor periodically. (10) DVT prophylaxis: Code(s): Z29.9 - Encounter for prophylactic measures, unspecified Statu
[2021-05-12] MEDS: POTASSIUM CHLORIDE 20 MEQ PACKET (FOR LIQUID) 40 MEQ PO (12:18)
[2021-05-12 12:39] LABS: Glucose Point of Care 123 mg/dl (65-105)
[2021-05-12 18:41] LABS: Glucose Point of Care 131 mg/dl (65-105)
--- NOTE | 2021-05-12 19:51 | PM.PNCARD ---
Progress Note: A&P Assessment and Plan (1) Paroxysmal atrial fibrillation with RVR: Code(s): I48.0 - Paroxysmal atrial fibrillation Status: Acute Assessment and Plan: New onset atrial fib/flutter this admission. Patient generally asymptomatic. CHADS2 Vasc score 4. Systemic anticoagulation advised. Continue Eliquis 5 mg b.i.d.. Still w/ PAF occ RVR taking diltiazem 240 mg and metoprolol tartrate 25 mg b.i.d. Counseled pt re: PAF and tx. Converted to NSR. Remains in sinus rhythm now. Increase metoprolol to 50 mg BID Likely will need some long-term monitoring later as OPT to see if she has recurrence of arrhythmias and reason to stay on AC. (2) Paroxysmal SVT (supraventricular tachycardia): Code(s): I47.1 - Supraventricular tachycardia Status: Acute Assessment and Plan: Has PSVT rate 170 during hospitalization, none recently. Continue telemetry, metoprolol and Cardizem. (3) Pneumonia due to COVID-19 virus: Code(s): U07.1 - COVID-19; J12.82 - Pneumonia due to coronavirus disease 2018 Status: Acute Assessment and Plan: Continue supportive care, O2 supplementation, BiPAP support as required. Stable per pulmonary. Home when COVID protocol complete (4) Acute on chronic respiratory failure with hypoxia: Code(s): J96.21 - Acute and chronic respiratory failure with hypoxia Status: Acute Assessment and Plan: Patient on home O2 for COPD, still requires significant O2 supplementation. (5) Swelling of lower leg: Code(s): M79.89 - Other specified soft tissue disorders Status: Acute Assessment and Plan: Initially had edema and perhaps mild CHF, improved w/ IV furosemide. BNP 125 on admission, now minimally elevated at 315 on 05/08/2021. Chest x-ray consistent with pneumonia versus pulmonary edema. Reported improvement after initiation of IV Lasix, however. Patient does not appear to be in significant clinical decompensated heart failure at this time; edema resolved. Lasix decreased to 40 mg daily today Subjective Date/time seen: 05/12/21 19:51 Interval history: Follow-up for SVT and paroxysmal atrial fibrillation with rapid ventricular response, COVID pneumonia, CHF 05/07/2021: Patient is still requiring high-flow nasal cannula. More frequent episodes of AFib with RVR heart rate up to the 170s. Patient asymptomatic otherwise. Denies chest pain, nausea vomiting. Patient states she wants to go home. Added metoprolol, change Cardizem from 180 mg daily to: 60 mg q.8 hours. 05/08/2021: Patient had AFib RVR and also SVT through the night, heart rate in the 170s, given metoprolol 5 mg IV push and started on her p.o. Cardizem early. This morning, telemetry shows AFib/flutter heart rate 112. Remains on high-flow nasal oxygen at 15 L, O2 sat 93%. Complains of SOB with activity but comfortable at rest. Requests more medicine for anxiety. ProBNP 315. Continue metoprolol and Cardizem. Date of service 05/09/2021: Very eager for discharge. If I had known how long they would keep me, I never would have come! (O2 sat ws 62% on EMS run.). Atrial flutter converted to NSR; no further PSVT. Feeling well Date of service 05/10/2021: Feels about the same today. No major changes. Irritated that her skin is dry because of her nonrebreather mask. No chest pain, palpitations. Breathing is unchanged. Remains in sinus rhythm. Date of service 05/12/2021: Went back itno a fib this a.m., sometimes w/ RVR. Converted to NSR. Asymptomatic. REmains on O2 10 L (has home O2 chronically). Review of Systems Constitutional: Constitutional: Reports no additional constitutional complaints Eyes: Eyes: Reports no additional eye complaints ENT: Denies epistaxis Cardiovascular: Cardiovascular: Denies chest pain, Denies pedal edema an
[2021-05-12 20:42] LABS: Glucose Point of Care 140 mg/dl (65-105)
[2021-05-12] MEDS: METOPROLOL TARTRATE 50 MG TAB PO (21:52)
[2021-05-13] VITALS (18 sets, daily range): BP systolic 119–147; BP diastolic 55–78; PULSE 70–95; RESP 18–24; TEMP 35.7–36.8; O2SAT 90–99
[2021-05-13] MEDS: HYDROcodone/acetaminophen (*CRX) 5-325 MG TABLET 1 TAB PO ×6 (01:26→21:58)
[2021-05-13 05:46] LABS: Basophils Percent Auto 0.4 % (0.2-1.2); Eosinophils Absolute Auto 0.4 K/mm3 (0-0.3); Eosinophils Percent Auto 4.3 % (0-4.4); Hematocrit 41.3 % (37.0-47.0); Hemoglobin 12.7 g/dL (12.0-15.0); Immature Granulocyte Absolute 0.06 K/mm3 (0.00-0.031); Immature Granulocyte Percent A 0.7 % (0-0.5); Lymphocytes Absolute Auto 1.34 K/mm3 (0.9-3.2); Lymphocytes Percent Auto 16.5 % (18.3-44.2); Mean Corpuscular HGB Conc 30.8 g/dl (32-36); Mean Corpuscular Hemoglobin 27.1 pg (26-34); Mean Corpuscular Volume 88.2 fl (80-100); Mean Platelet Volume 11.9 fl (7.4-10.4); Monocytes Absolute Auto 1.1 K/mm3 (0.1-0.6); Monocytes Percent Auto 13.1 % (2.6-8.5); Neutrophils Absolute Auto 5.3 K/mm3 (1.3-6.7); Platelet Count Result 333 k/mm3 (150-375); Red Blood Count 4.68 M/mm3 (4.2-5.4); Red Cell Distribution Width 15.3 % (11.5-14.5); White Blood Count 8.1 K/mm3 (4.5-10.0)
[2021-05-13 05:50] LABS: Alanine Aminotransferase 24 U/L (4-35); Albumin Level 3.7 g/dL (3.5-5.1); Alkaline Phosphatase 57 U/L (38-126); Aspartate Amino Transferase 33 U/L (14-36); Bilirubin,Total 0.6 mg/dL (0.2-1.3); Blood Urea Nitrogen 17 mg/dL (7-17); CRP < 0.5 mg/dL (<1.0); Calcium 8.7 mg/dL (8.4-10.2); Carbon Dioxide > 40 mmol/L (22-30); Chloride 88 mmol/L (98-107); Estimated CRCL calculation 109 ml/min; Estimated Glomerular Filt Rate > 60; Glucose 118 mg/dL (65-110); Magnesium 2.2 mg/dL (1.6-2.3); Phosphorus 3.2 mg/dL (2.5-4.5); Potassium 3.3 mmol/L (3.4-5.0); Sodium 132 mmol/L (137-145)
[2021-05-13] MEDS: LORazepam (*CRX) 0.5 MG TABLET PO ×3 (05:55→21:55)
[2021-05-13] MEDS: ZAFIRLUKAST 20 MG TABLET PO ×2 (05:56→18:00)
[2021-05-13 08:36] LABS: Glucose Point of Care 132 mg/dl (65-105)
[2021-05-13] MEDS: POTASSIUM CHLORIDE 20 MEQ PACKET (FOR LIQUID) 40 MEQ PO (10:00)
[2021-05-13] MEDS: PANTOPRAZOLE 40 MG TABLET PO (10:02)
[2021-05-13] MEDS: CITALOPRAM HYDROBROMIDE 20 MG TABLET PO (10:02)
[2021-05-13] MEDS: ASPIRIN 81 MG ENTERIC TABLET PO (10:03)
[2021-05-13] MEDS: METOPROLOL TARTRATE 50 MG TAB PO ×2 (10:03→21:55)
[2021-05-13] MEDS: APIXABAN 5 MG TABLET PO ×2 (10:03→21:55)
[2021-05-13] MEDS: ATORVASTATIN 10 MG TABLET PO (10:03)
[2021-05-13] MEDS: FUROSEMIDE 40 MG TABLET PO (10:03)
--- NOTE | 2021-05-13 10:04 | PM.IMPN ---
Progress Note: A&P Assessment and Plan (1) Acute and chronic respiratory failure: Code(s): J96.20 - Acute and chronic respiratory failure, unspecified whether with hypoxia or hypercapnia Status: Acute Assessment and Plan: Patient has chronic respiratory failure on 5 L nasal cannula due to severe emphysema. Her acute respiratory flare secondary to COVID pneumonia with posible bacterial component. CTA of the chest (05/05) was negative for PE but with moderate amount of lower lobe predominant airspace disease probably pneumonia and severe chronic emphysema. She was started on IV antibiotics 05/06 for potential secondary bacterial pneumonia. No evidence of right ventricular abnormalities and PA systolic pressure could not be assessed by echocardiogram on 05/03/2021. Thus unclear if she has pulmonary hypertension. She is DNR. No fevers and WBC normal now. Wean oxygen as tolerated. Pulmonology consulted and appreciate their input. Stop abx. (2) Pneumonia due to COVID-19 virus: Code(s): U07.1 - COVID-19; J12.82 - Pneumonia due to coronavirus disease 2018 Status: Acute Assessment and Plan: Patient presents with shortness of breath. She was vaccinated with [employer] Dh[employer] earlier in the year but has not had a booster. She completed a course of dexamethasone and remdesivir. Tocilizumab was given on 05/02/2021. Pulmonology following and appreciate their input. Wean O2 as tolerated. (3) Paroxysmal atrial fibrillation with RVR: Code(s): I48.0 - Paroxysmal atrial fibrillation Status: Acute Assessment and Plan: Patient developed new onset atrial fibrillation. She converted to normal sinus rhythm but still with intermittent episodes of AFib. She remains on Cardizem and Lopressor with Lopressor advanced on 05/12. She is on Eliquis for stroke prophylaxis. She also had tachycardia that was more consistent with SVT then AFib/Flutter. Echocardiogram (05/03) shows EF of 55-60% grade 1 diastolic dysfunction and septal wall motion abnormality. Unable to assess PA systolic pressures. Patient does not have bundle branch morphology. CTA of the chest (05/05) showed no pulmonary emboli. BNP 315; no Trop drawn. TSH low but nml FT4 so doubt hyperthyroidism. Appreciate cardiology input. Consider further workup due to the wall motion abnormality once she is better. (4) Paroxysmal SVT (supraventricular tachycardia): Code(s): I47.1 - Supraventricular tachycardia Status: Acute Assessment and Plan: As above (5) Obstructive sleep apnea on CPAP: Code(s): G47.33 - Obstructive sleep apnea (adult) (pediatric); Z99.89 - Dependence on other enabling machines and devices Status: Acute Assessment and Plan: Patient refusing BiPAP at night. Continue supportive care. (6) COPD with emphysema: Qualifiers: Emphysema type: centrilobular Qualified Code(s): J43.2 - Centrilobular emphysema Code(s): J43.9 - Emphysema, unspecified Status: Acute Assessment and Plan: No wheezing. CTA chest shows severe emphysema. Continue treatment as detailed above. (7) Diet-controlled diabetes mellitus: Code(s): E11.9 - Type 2 diabetes mellitus without complications Status: Acute Assessment and Plan: A1c 6.4. The patient's blood glucose was reviewed on 05/13 Glucose remains well controlled. Continue AccuCheks covering with sliding scale. Hypoglycemia protocol available as needed. Continue current treatment plan. (8) Leukocytosis: Code(s): D72.829 - Elevated white blood cell count, unspecified Status: Acute Assessment and Plan: White count climbed to 13,600. [place] related to bacterial pneumonia. Patient started on IV antibiotics. White count normal now. Appreciate pulmonary input. (9) Elevated LFTs: Code(s): R79.89 - Other specified abnormal findings of blood chemistry Status: Acute Asse
[2021-05-13 12:06] LABS: Glucose Point of Care 186 mg/dl (65-105)
[2021-05-13 15:55] LABS: Glucose Point of Care 178 mg/dl (65-105)
[2021-05-13 22:02] LABS: Glucose Point of Care 149 mg/dl (65-105)
[2021-05-14] VITALS (20 sets, daily range): BP systolic 102–124; BP diastolic 41–67; PULSE 68–84; RESP 20–24; TEMP 35.8–36.9; O2SAT 90–98
[2021-05-14] MEDS: HYDROcodone/acetaminophen (*CRX) 5-325 MG TABLET 1 TAB PO ×5 (02:10→20:42)
[2021-05-14 05:27] LABS: Blood Urea Nitrogen 13 mg/dL (7-17); Calcium 8.7 mg/dL (8.4-10.2); Carbon Dioxide > 40 mmol/L (22-30); Chloride 89 mmol/L (98-107); Estimated CRCL calculation 95 ml/min; Estimated Glomerular Filt Rate > 60; Glucose 125 mg/dL (65-110); Potassium 3.4 mmol/L (3.4-5.0); Sodium 135 mmol/L (137-145)
[2021-05-14] MEDS: LORazepam (*CRX) 0.5 MG TABLET PO ×3 (06:13→20:42)
[2021-05-14] MEDS: ZAFIRLUKAST 20 MG TABLET PO ×2 (06:13→16:48)
[2021-05-14] MEDS: ATORVASTATIN 10 MG TABLET PO (08:41)
[2021-05-14] MEDS: PANTOPRAZOLE 40 MG TABLET PO (08:41)
[2021-05-14] MEDS: CITALOPRAM HYDROBROMIDE 20 MG TABLET PO (08:41)
[2021-05-14] MEDS: FUROSEMIDE 40 MG TABLET PO (08:41)
[2021-05-14] MEDS: METOPROLOL TARTRATE 50 MG TAB PO ×2 (08:41→20:49)
[2021-05-14] MEDS: ASPIRIN 81 MG ENTERIC TABLET PO (08:41)
[2021-05-14] MEDS: APIXABAN 5 MG TABLET PO ×2 (08:41→20:49)
--- NOTE | 2021-05-14 09:39 | PCNWS ---
Weekly nutritional screen. Patient is tolerating current diet with adequate intake. No weight loss reported. No nutritional needs at this time.
--- NOTE | 2021-05-14 10:19 | PM.PNCARD ---
Progress Note: A&P Assessment and Plan (1) Paroxysmal atrial fibrillation with RVR: Code(s): I48.0 - Paroxysmal atrial fibrillation Status: Acute Assessment and Plan: New onset atrial fib/flutter this admission. Patient generally asymptomatic. CHADS2 Vasc score 4. Systemic anticoagulation advised. Continue Eliquis 5 mg b.i.d.. Counseled pt re: PAF and tx. Converted to NSR. Remains in sinus rhythm now. Continue metoprolol Likely will need some long-term monitoring later as OPT to see if she has recurrence of arrhythmias and reason to stay on AC. (2) Paroxysmal SVT (supraventricular tachycardia): Code(s): I47.1 - Supraventricular tachycardia Status: Acute Assessment and Plan: Has PSVT rate 170 during hospitalization, none recently. Continue telemetry, metoprolol and Cardizem. (3) Pneumonia due to COVID-19 virus: Code(s): U07.1 - COVID-19; J12.82 - Pneumonia due to coronavirus disease 2018 Status: Acute Assessment and Plan: Continue supportive care, O2 supplementation, BiPAP support as required. Stable per pulmonary. Home when COVID protocol complete (4) Acute on chronic respiratory failure with hypoxia: Code(s): J96.21 - Acute and chronic respiratory failure with hypoxia Status: Acute Assessment and Plan: Patient on home O2 for COPD, still requires significant O2 supplementation. (5) Swelling of lower leg: Code(s): M79.89 - Other specified soft tissue disorders Status: Acute Assessment and Plan: Initially had edema and perhaps mild CHF, improved w/ IV furosemide. BNP 125 on admission, now minimally elevated at 315 on 05/08/2021. Chest x-ray consistent with pneumonia versus pulmonary edema. Reported improvement after initiation of IV Lasix, however. Patient does not appear to be in significant clinical decompensated heart failure at this time; edema resolved. KCL 4 mg p.o. x1 for mild hypokalemia Subjective Date/time seen: 05/14/21 10:19 Interval history: Follow-up for SVT and paroxysmal atrial fibrillation with rapid ventricular response, COVID pneumonia, CHF 05/07/2021: Patient is still requiring high-flow nasal cannula. More frequent episodes of AFib with RVR heart rate up to the 170s. Patient asymptomatic otherwise. Denies chest pain, nausea vomiting. Patient states she wants to go home. Added metoprolol, change Cardizem from 180 mg daily to: 60 mg q.8 hours. 05/08/2021: Patient had AFib RVR and also SVT through the night, heart rate in the 170s, given metoprolol 5 mg IV push and started on her p.o. Cardizem early. This morning, telemetry shows AFib/flutter heart rate 112. Remains on high-flow nasal oxygen at 15 L, O2 sat 93%. Complains of SOB with activity but comfortable at rest. Requests more medicine for anxiety. ProBNP 315. Continue metoprolol and Cardizem. Date of service 05/09/2021: Very eager for discharge. If I had known how long they would keep me, I never would have come! (O2 sat ws 62% on EMS run.). Atrial flutter converted to NSR; no further PSVT. Feeling well Date of service 05/10/2021: Feels about the same today. No major changes. Irritated that her skin is dry because of her nonrebreather mask. No chest pain, palpitations. Breathing is unchanged. Remains in sinus rhythm. Date of service 05/12/2021: Went back itno a fib this a.m., sometimes w/ RVR. Converted to NSR. Asymptomatic. REmains on O2 10 L (has home O2 chronically). Date of service 05/14/2021: Breathing is okay. She is still on a lot of oxygen no. No chest pain. Review of Systems Review of Systems: All systems reviewed & are unremarkable except as noted in HPI and below Constitutional: Constitutional: Reports as per HPI, Reports no additional constitutional complaints, Reports chills, Reports fat
--- NOTE | 2021-05-14 10:38 | P.PNIM_ITS ---
Progress Note: A&P Assessment and Plan (1) Acute and chronic respiratory failure: Code(s): J96.20 - Acute and chronic respiratory failure, unspecified whether with hypoxia or hypercapnia Status: Acute Assessment and Plan: Patient has chronic respiratory failure on 5 L nasal cannula due to severe emphysema. Her acute respiratory flare secondary to COVID pneumonia with possible bacterial component. CTA of the chest (05/05) was negative for PE but with moderate amount of lower lobe predominant airspace disease probably pneumonia and severe chronic emphysema. She was started on IV antibiotics 05/06 for potential secondary bacterial pneumonia. No evidence of right ventricular abnormalities and PA systolic pressure could not be assessed by echocardiogram on 05/03/2021. Thus unclear if she has pulmonary hypertension. She is DNR. No fevers and WBC normal now. Wean oxygen as tolerated. Stop Rocephin. Diamox once for elevated serum bicarb. Home O2 evaluation since patient considering signing out AMA. Repeat CXR. (2) Pneumonia due to COVID-19 virus: Code(s): U07.1 - COVID-19; J12.82 - Pneumonia due to coronavirus disease 2018 Status: Acute Assessment and Plan: Patient presents with shortness of breath. She was vaccinated with [employer] H[employer] earlier in the year but has not had a booster. She completed a course of dexamethasone and remdesivir. Tocilizumab was given on 05/02. Pulmonology was following and has signed off. Wean O2 as tolerated. (3) Paroxysmal atrial fibrillation with RVR: Code(s): I48.0 - Paroxysmal atrial fibrillation Status: Acute Assessment and Plan: Patient developed new onset atrial fibrillation. She converted to normal sinus rhythm but still with intermittent episodes of AFib. She remains on Cardizem and Lopressor with Lopressor advanced on 05/12. She is on Eliquis for stroke prophylaxis. She also had tachycardia that was more consistent with SVT then A Fib/Flutter. Echocardiogram (05/03) shows EF of 55-60% grade 1 diastolic dysfunction and septal wall motion abnormality. Unable to assess PA systolic pressures. Patient does not have bundle branch morphology. CTA of the chest (05/05) showed no pulmonary emboli. BNP 315; no Trop drawn. TSH low but nml FT4 so doubt hyperthyroidism. Appreciate cardiology input. Consider further workup due to the wall motion abnormality once she is better. Continue current treatment plan. (4) Paroxysmal SVT (supraventricular tachycardia): Code(s): I47.1 - Supraventricular tachycardia Status: Acute Assessment and Plan: As above (5) Obstructive sleep apnea on CPAP: Code(s): G47.33 - Obstructive sleep apnea (adult) (pediatric); Z99.89 - Dependence on other enabling machines and devices Status: Acute Assessment and Plan: Patient refusing BiPAP at night. Encouraged compliance. Continue supportive ca re. (6) COPD with emphysema: Qualifiers: Emphysema type: centrilobular Qualified Code(s): J43.2 - Centrilobular emphysema Code(s): J43.9 - Emphysema, unspecified Status: Acute Assessment and Plan: No wheezing. CTA chest shows severe emphysema. Continue treatment as detailed above. (7) Diet-controlled diabetes mellitus: Code(s): E11.9 - Type 2 diabetes mellitus without complications Status: Acute Assessment and Plan: A1c 6.4. The patient's blood glucose was reviewed on 12 Glucose remains well controlled. Continue AccuCheks covering with sliding scale. Hypoglycemia protocol available as needed. Continue current treat
[2021-05-14] MEDS: POTASSIUM CHLORIDE 20 MEQ TABLET 40 MEQ PO (11:25)
[2021-05-14] MEDS: acetaZOLAMIDE SODIUM FOR INJ 500 MG VIAL 250 MG IV PUSH (11:26)
--- NOTE | 2021-05-14 12:17 | PCRCNOTE ---
PT HAS HOME O2 AND CPAP WITH [facility]. PT WEARS CPAP APPROX 18 HOURS DAILY WITH A 5 L BLEED IN. PT HAS A CONCENTRATOR AT HOME THAT IS CAPABLE OF DELIVERING 15L. CURRENT O2 SETTINGS ARE 8 L HIGH FLOW CANNULA AT REST AND 15 L NON-REBREATHER MASK WITH ANY MOVEMENT. PT WEARS NONREBREATHER PRN FOR COUGH AND MOVEMENT. UNABLE TO SEND HOME WITH THIS HIGH FLOW O2 NEED
[2021-05-14 12:45] LABS: Glucose Point of Care 153 mg/dl (65-105)
--- NOTE | 2021-05-14 14:45 | PCSTNOTE ---
Please refer to the Bedside Swallow Evaluation in the EMR. Please note, silent aspiration cannot be ruled out at bedside.
[2021-05-14 16:45] LABS: Glucose Point of Care 151 mg/dl (65-105)
[2021-05-14] MEDS: CALCIUM CARBONATE (TUMS) 500 MG (200 MG ELEMENTAL) PO (21:10)
[2021-05-15] VITALS (19 sets, daily range): BP systolic 103–123; BP diastolic 38–75; PULSE 68–96; RESP 16–22; TEMP 36.6–37; O2SAT 90–96
[2021-05-15] MEDS: HYDROcodone/acetaminophen (*CRX) 5-325 MG TABLET 1 TAB PO ×6 (00:26→21:26)
[2021-05-15 00:57] LABS: Glucose Point of Care 141 mg/dl (65-105)
[2021-05-15] MEDS: LORazepam (*CRX) 0.5 MG TABLET PO ×3 (05:15→21:27)
[2021-05-15 05:18] LABS: Basophils Absolute Auto 0.1 K/mm3 (0.0-0.1); Basophils Percent Auto 0.6 % (0.2-1.2); Eosinophils Absolute Auto 0.4 K/mm3 (0-0.3); Eosinophils Percent Auto 4.4 % (0-4.4); Hematocrit 44.2 % (37.0-47.0); Hemoglobin 13.1 g/dL (12.0-15.0); Immature Granulocyte Absolute 0.07 K/mm3 (0.00-0.031); Immature Granulocyte Percent A 0.7 % (0-0.5); Lymphocytes Absolute Auto 1.45 K/mm3 (0.9-3.2); Lymphocytes Percent Auto 14.7 % (18.3-44.2); Mean Corpuscular HGB Conc 29.6 g/dl (32-36); Mean Corpuscular Hemoglobin 27.3 pg (26-34); Mean Corpuscular Volume 92.3 fl (80-100); Mean Platelet Volume 11.7 fl (7.4-10.4); Monocytes Percent Auto 10.5 % (2.6-8.5); Neutrophils Absolute Auto 6.8 K/mm3 (1.3-6.7); Neutrophils Percent Auto 69.1 % (45.5-73.1); Platelet Count Result 281 k/mm3 (150-375); Red Blood Count 4.79 M/mm3 (4.2-5.4); Red Cell Distribution Width 15.3 % (11.5-14.5); White Blood Count 9.9 K/mm3 (4.5-10.0)
[2021-05-15 05:35] LABS: Alanine Aminotransferase 28 U/L (4-35); Albumin Level 3.4 g/dL (3.5-5.1); Alkaline Phosphatase 60 U/L (38-126); Anion Gap 7 mmol/L (8-16); Aspartate Amino Transferase 32 U/L (14-36); Bilirubin,Total 0.6 mg/dL (0.2-1.3); Blood Urea Nitrogen 12 mg/dL (7-17); CRP < 0.5 mg/dL (<1.0); Calcium 8.7 mg/dL (8.4-10.2); Carbon Dioxide 36 mmol/L (22-30); Chloride 93 mmol/L (98-107); Estimated CRCL calculation 109 ml/min; Estimated Glomerular Filt Rate > 60; Glucose 124 mg/dL (65-110); Magnesium 2.1 mg/dL (1.6-2.3); Phosphorus 2.6 mg/dL (2.5-4.5); Potassium 3.6 mmol/L (3.4-5.0); Sodium 136 mmol/L (137-145)
[2021-05-15] MEDS: ZAFIRLUKAST 20 MG TABLET PO ×2 (06:49→16:05)
[2021-05-15 08:49] LABS: Glucose Point of Care 130 mg/dl (65-105)
[2021-05-15] MEDS: FUROSEMIDE 40 MG TABLET PO (09:15)
[2021-05-15] MEDS: ASPIRIN 81 MG ENTERIC TABLET PO (09:16)
[2021-05-15] MEDS: APIXABAN 5 MG TABLET PO ×2 (09:16→21:27)
[2021-05-15] MEDS: CITALOPRAM HYDROBROMIDE 20 MG TABLET PO (09:17)
[2021-05-15] MEDS: METOPROLOL TARTRATE 50 MG TAB PO ×2 (09:17→21:27)
[2021-05-15] MEDS: PANTOPRAZOLE 40 MG TABLET PO (09:17)
[2021-05-15] MEDS: CALCIUM CARBONATE (TUMS) 500 MG (200 MG ELEMENTAL) PO ×3 (09:18→21:26)
[2021-05-15] MEDS: ATORVASTATIN 10 MG TABLET PO (09:18)
[2021-05-15] MEDS: FLUTICASONE/UMECLIDIN/VILANTER 100-62.5-25 MCG ELLIPTA 1 PUFF INHALATION ×2 (09:32→20:10)
--- NOTE | 2021-05-15 12:07 | PM.IMPN ---
Progress Note: A&P Assessment and Plan (1) Acute and chronic respiratory failure: Code(s): J96.20 - Acute and chronic respiratory failure, unspecified whether with hypoxia or hypercapnia Status: Acute Assessment and Plan: Patient has chronic respiratory failure on 5 L nasal cannula due to severe emphysema. Her acute respiratory flare secondary to COVID pneumonia with possible bacterial component. CTA of the chest (05/05) was negative for PE but with moderate amount of lower lobe predominant airspace disease probably pneumonia and severe chronic emphysema. She was started on IV antibiotics 05/06 for potential secondary bacterial pneumonia. No evidence of right ventricular abnormalities and PA systolic pressure could not be assessed by echocardiogram on 05/03/2021. Thus unclear if she has pulmonary hypertension. She is DNR. No fevers and WBC normal now. Wean oxygen as tolerated. Stop Rocephin. Diamox once for elevated serum bicarb. Home O2 evaluation since patient considering signing out AMA. Repeat CXR. Will give 1 dose of Lasix today add incentive spirometry (2) Pneumonia due to COVID-19 virus: Code(s): U07.1 - COVID-19; J12.82 - Pneumonia due to coronavirus disease 2018 Status: Acute Assessment and Plan: Patient presents with shortness of breath. She was vaccinated with [employer] earlier in the year but has not had a booster. She completed a course of dexamethasone and remdesivir. Tocilizumab was given on 05/02. Pulmonology was following and has signed off. Wean O2 as tolerated. (3) Paroxysmal atrial fibrillation with RVR: Code(s): I48.0 - Paroxysmal atrial fibrillation Status: Acute Assessment and Plan: Patient developed new onset atrial fibrillation. She converted to normal sinus rhythm but still with intermittent episodes of AFib. She remains on Cardizem and Lopressor with Lopressor advanced on 05/12. She is on Eliquis for stroke prophylaxis. She also had tachycardia that was more consistent with SVT then AFib/Flutter. Echocardiogram (05/03) shows EF of 55-60% grade 1 diastolic dysfunction and septal wall motion abnormality. Unable to assess PA systolic pressures. Patient does not have bundle branch morphology. CTA of the chest (05/05) showed no pulmonary emboli. BNP 315; no Trop drawn. TSH low but nml FT4 so doubt hyperthyroidism. Appreciate cardiology input. Consider further workup due to the wall motion abnormality once she is better. Continue current treatment plan. (4) Paroxysmal SVT (supraventricular tachycardia): Code(s): I47.1 - Supraventricular tachycardia Status: Acute Assessment and Plan: As above (5) Obstructive sleep apnea on CPAP: Code(s): G47.33 - Obstructive sleep apnea (adult) (pediatric); Z99.89 - Dependence on other enabling machines and devices Status: Acute Assessment and Plan: Patient refusing BiPAP at night. Encouraged compliance. Continue supportive care. (6) COPD with emphysema: Qualifiers: Emphysema type: centrilobular Qualified Code(s): J43.2 - Centrilobular emphysema Code(s): J43.9 - Emphysema, unspecified Status: Acute Assessment and Plan: No wheezing. CTA chest shows severe emphysema. Continue treatment as detailed above. (7) Diet-controlled diabetes mellitus: Code(s): E11.9 - Type 2 diabetes mellitus without complications Status: Acute Assessment and Plan: A1c 6.4. The patient's blood glucose was reviewed on 05/14 Glucose remains well controlled. Continue AccuCheks covering with sliding scale. Hypoglycemia protocol available as needed. Continue current treatment plan. (8) Leukocytosis: Code(s): D72.829 - Elevated white blood cell count, unspecified Status: Acute Assessment and Plan: White count climbed to 13,600. [place] related to bacterial pneumonia. Patient started on IV antibiotics. White count
[2021-05-15 12:39] LABS: Glucose Point of Care 130 mg/dl (65-105)
[2021-05-15] MEDS: FUROSEMIDE INJ 40 MG/4 ML VIAL IV PUSH (13:23)
--- NOTE | 2021-05-15 14:12 | PM.PNCARD ---
Progress Note: A&P Assessment and Plan (1) Paroxysmal atrial fibrillation with RVR: Code(s): I48.0 - Paroxysmal atrial fibrillation Status: Acute Assessment and Plan: New onset atrial fib/flutter this admission. Patient generally asymptomatic. CHADS2 Vasc score 4. Systemic anticoagulation advised. Continue Eliquis 5 mg b.i.d.. Counseled pt re: PAF and tx. Converted to NSR. Remains in sinus rhythm now. Continue metoprolol Likely will need some long-term monitoring later as OPT to see if she has recurrence of arrhythmias and reason to stay on AC. (2) Paroxysmal SVT (supraventricular tachycardia): Code(s): I47.1 - Supraventricular tachycardia Status: Acute Assessment and Plan: Has PSVT rate 170 during hospitalization, none recently. Continue telemetry, metoprolol and Cardizem. (3) Pneumonia due to COVID-19 virus: Code(s): U07.1 - COVID-19; J12.82 - Pneumonia due to coronavirus disease 2018 Status: Acute Assessment and Plan: Continue supportive care, O2 supplementation, BiPAP support as required. Stable per pulmonary. Home when COVID protocol complete (4) Acute on chronic respiratory failure with hypoxia: Code(s): J96.21 - Acute and chronic respiratory failure with hypoxia Status: Acute Assessment and Plan: Patient on home O2 for COPD, still requires significant O2 supplementation. (5) Swelling of lower leg: Code(s): M79.89 - Other specified soft tissue disorders Status: Acute Assessment and Plan: Initially had edema and perhaps mild CHF, improved w/ IV furosemide. BNP 125 on admission, now minimally elevated at 315 on 05/08/2021. Chest x-ray consistent with pneumonia versus pulmonary edema. Reported improvement after initiation of IV Lasix, however. Patient does not appear to be in significant clinical decompensated heart failure at this time; edema resolved. (6) Hypokalemia: Code(s): E87.6 - Hypokalemia Status: Acute Assessment and Plan: Will replace with KCL 40 mg p.o. x1 Subjective Date/time seen: 05/15/21 14:12 Interval history: Follow-up for SVT and paroxysmal atrial fibrillation with rapid ventricular response, COVID pneumonia, CHF 05/07/2021: Patient is still requiring high-flow nasal cannula. More frequent episodes of AFib with RVR heart rate up to the 170s. Patient asymptomatic otherwise. Denies chest pain, nausea vomiting. Patient states she wants to go home. Added metoprolol, change Cardizem from 180 mg daily to: 60 mg q.8 hours. 05/08/2021: Patient had AFib RVR and also SVT through the night, heart rate in the 170s, given metoprolol 5 mg IV push and started on her p.o. Cardizem early. This morning, telemetry shows AFib/flutter heart rate 112. Remains on high-flow nasal oxygen at 15 L, O2 sat 93%. Complains of SOB with activity but comfortable at rest. Requests more medicine for anxiety. ProBNP 315. Continue metoprolol and Cardizem. Date of service 05/09/2021: Very eager for discharge. If I had known how long they would keep me, I never would have come! (O2 sat ws 62% on EMS run.). Atrial flutter converted to NSR; no further PSVT. Feeling well Date of service 05/10/2021: Feels about the same today. No major changes. Irritated that her skin is dry because of her nonrebreather mask. No chest pain, palpitations. Breathing is unchanged. Remains in sinus rhythm. Date of service 05/12/2021: Went back itno a fib this a.m., sometimes w/ RVR. Converted to NSR. Asymptomatic. REmains on O2 10 L (has home O2 chronically). Date of service 05/14/2021: Breathing is okay. She is still on a lot of oxygen no. No chest pain. Date of service 05/15/2021: She is feeling a little bit better. Oxygen levels have been able to be decreased a little. No chest pain. N
[2021-05-15] MEDS: POTASSIUM CHLORIDE 20 MEQ TABLET 40 MEQ PO (16:05)
[2021-05-15 16:37] LABS: Glucose Point of Care 144 mg/dl (65-105)
[2021-05-15 20:40] LABS: Glucose Point of Care 181 mg/dl (65-105)
[2021-05-16] VITALS (15 sets, daily range): BP systolic 114–133; BP diastolic 46–69; PULSE 69–107; RESP 18–21; TEMP 36.4–37.1; O2SAT 91–98
[2021-05-16] MEDS: ACETAMINOPHEN 325 MG TABLET 650 MG PO ×2 (00:24→15:36)
[2021-05-16] MEDS: HYDROcodone/acetaminophen (*CRX) 5-325 MG TABLET 1 TAB PO ×5 (03:54→21:37)
[2021-05-16 04:46] LABS: Basophils Absolute Auto 0.1 K/mm3 (0.0-0.1); Basophils Percent Auto 1.1 % (0.2-1.2); Eosinophils Absolute Auto 0.4 K/mm3 (0-0.3); Eosinophils Percent Auto 4.4 % (0-4.4); Hematocrit 42.1 % (37.0-47.0); Hemoglobin 12.6 g/dL (12.0-15.0); Immature Granulocyte Absolute 0.05 K/mm3 (0.00-0.031); Immature Granulocyte Percent A 0.6 % (0-0.5); Lymphocytes Absolute Auto 1.58 K/mm3 (0.9-3.2); Lymphocytes Percent Auto 18.7 % (18.3-44.2); Mean Corpuscular HGB Conc 29.9 g/dl (32-36); Mean Corpuscular Volume 90.3 fl (80-100); Mean Platelet Volume 11.5 fl (7.4-10.4); Monocytes Percent Auto 11.5 % (2.6-8.5); Neutrophils Absolute Auto 5.4 K/mm3 (1.3-6.7); Neutrophils Percent Auto 63.7 % (45.5-73.1); Platelet Count Result 276 k/mm3 (150-375); Red Blood Count 4.66 M/mm3 (4.2-5.4); Red Cell Distribution Width 15.4 % (11.5-14.5); White Blood Count 8.5 K/mm3 (4.5-10.0)
[2021-05-16 04:58] LABS: Anion Gap 7 mmol/L (8-16); Blood Urea Nitrogen 13 mg/dL (7-17); Calcium 8.8 mg/dL (8.4-10.2); Carbon Dioxide 34 mmol/L (22-30); Chloride 95 mmol/L (98-107); Estimated CRCL calculation 109 ml/min; Estimated Glomerular Filt Rate > 60; Glucose 125 mg/dL (65-110); Potassium 3.7 mmol/L (3.4-5.0); Sodium 136 mmol/L (137-145)
[2021-05-16] MEDS: ZAFIRLUKAST 20 MG TABLET PO ×2 (06:19→15:36)
[2021-05-16] MEDS: LORazepam (*CRX) 0.5 MG TABLET PO ×3 (06:19→21:37)
[2021-05-16] MEDS: APIXABAN 5 MG TABLET PO ×2 (08:48→21:38)
[2021-05-16] MEDS: PANTOPRAZOLE 40 MG TABLET PO (08:49)
[2021-05-16] MEDS: ATORVASTATIN 10 MG TABLET PO (08:49)
[2021-05-16] MEDS: ASPIRIN 81 MG ENTERIC TABLET PO (08:49)
[2021-05-16] MEDS: METOPROLOL TARTRATE 50 MG TAB PO ×2 (08:49→21:38)
[2021-05-16] MEDS: CITALOPRAM HYDROBROMIDE 20 MG TABLET PO (08:49)
[2021-05-16] MEDS: FUROSEMIDE 40 MG TABLET PO (08:49)
[2021-05-16 09:01] LABS: Glucose Point of Care 150 mg/dl (65-105)
--- NOTE | 2021-05-16 10:28 | PM.PNCARD ---
Progress Note: A&P Assessment and Plan (1) Paroxysmal atrial fibrillation with RVR: Code(s): I48.0 - Paroxysmal atrial fibrillation Status: Acute Assessment and Plan: New onset atrial fib/flutter this admission. Patient generally asymptomatic. CHADS2 Vasc score 4. Systemic anticoagulation advised. Continue Eliquis 5 mg b.i.d.. Counseled pt re: PAF and tx. Converted to NSR. Remains in sinus rhythm now. Continue metoprolol Likely will need some long-term monitoring later as OPT to see if she has recurrence of arrhythmias and reason to stay on AC. (2) Paroxysmal SVT (supraventricular tachycardia): Code(s): I47.1 - Supraventricular tachycardia Status: Acute Assessment and Plan: Has PSVT rate 170 during hospitalization, none recently. Continue telemetry, metoprolol and Cardizem. (3) Pneumonia due to COVID-19 virus: Code(s): U07.1 - COVID-19; J12.82 - Pneumonia due to coronavirus disease 2018 Status: Acute Assessment and Plan: Continue supportive care, O2 supplementation, BiPAP support as required. Stable per pulmonary. Home when COVID protocol complete (4) Acute on chronic respiratory failure with hypoxia: Code(s): J96.21 - Acute and chronic respiratory failure with hypoxia Status: Acute Assessment and Plan: Patient on home O2 for COPD, still requires significant O2 supplementation. (5) Swelling of lower leg: Code(s): M79.89 - Other specified soft tissue disorders Status: Acute Assessment and Plan: Initially had edema and perhaps mild CHF, improved w/ IV furosemide. BNP 125 on admission, now minimally elevated at 315 on 05/08/2021. Chest x-ray consistent with pneumonia versus pulmonary edema. Reported improvement after initiation of IV Lasix, however. Patient does not appear to be in significant clinical decompensated heart failure at this time; edema resolved. Will lower her furosemide down to her home dose of 20 mg daily (6) Hypokalemia: Code(s): E87.6 - Hypokalemia Status: Acute Assessment and Plan: KCL 20 mEq p.o. x1 now Subjective Date/time seen: 05/16/21 10:28 Interval history: Follow-up for SVT and paroxysmal atrial fibrillation with rapid ventricular response, COVID pneumonia, CHF 05/07/2021: Patient is still requiring high-flow nasal cannula. More frequent episodes of AFib with RVR heart rate up to the 170s. Patient asymptomatic otherwise. Denies chest pain, nausea vomiting. Patient states she wants to go home. Added metoprolol, change Cardizem from 180 mg daily to: 60 mg q.8 hours. 05/08/2021: Patient had AFib RVR and also SVT through the night, heart rate in the 170s, given metoprolol 5 mg IV push and started on her p.o. Cardizem early. This morning, telemetry shows AFib/flutter heart rate 112. Remains on high-flow nasal oxygen at 15 L, O2 sat 93%. Complains of SOB with activity but comfortable at rest. Requests more medicine for anxiety. ProBNP 315. Continue metoprolol and Cardizem. Date of service 05/09/2021: Very eager for discharge. If I had known how long they would keep me, I never would have come! (O2 sat ws 62% on EMS run.). Atrial flutter converted to NSR; no further PSVT. Feeling well Date of service 05/10/2021: Feels about the same today. No major changes. Irritated that her skin is dry because of her nonrebreather mask. No chest pain, palpitations. Breathing is unchanged. Remains in sinus rhythm. Date of service 05/12/2021: Went back itno a fib this a.m., sometimes w/ RVR. Converted to NSR. Asymptomatic. REmains on O2 10 L (has home O2 chronically). Date of service 05/14/2021: Breathing is okay. She is still on a lot of oxygen no. No chest pain. Date of service 05/15/2021: She is feeling a little bit better. Oxygen levels have been
[2021-05-16] MEDS: POTASSIUM CHLORIDE 20 MEQ PACKET (FOR LIQUID) PO (12:55)
[2021-05-16 13:16] LABS: Glucose Point of Care 125 mg/dl (65-105)
--- NOTE | 2021-05-16 14:04 | PM.IMPN ---
Progress Note: A&P Assessment and Plan (1) Acute and chronic respiratory failure: Code(s): J96.20 - Acute and chronic respiratory failure, unspecified whether with hypoxia or hypercapnia Status: Acute Assessment and Plan: Patient has chronic respiratory failure on 5 L nasal cannula due to severe emphysema. Her acute respiratory flare secondary to COVID pneumonia with possible bacterial component. CTA of the chest (05/05) was negative for PE but with moderate amount of lower lobe predominant airspace disease probably pneumonia and severe chronic emphysema. She was started on IV antibiotics 05/06 for potential secondary bacterial pneumonia. No evidence of right ventricular abnormalities and PA systolic pressure could not be assessed by echocardiogram on 05/03/2021. Thus unclear if she has pulmonary hypertension. She is DNR. No fevers and WBC normal now. Wean oxygen as tolerated. Stop Rocephin. Diamox once for elevated serum bicarb. Home O2 evaluation since patient considering signing out AMA. Repeat CXR. Add incentive spirometry intermittent diuresis Will slowly wean her oxygen lowered down to 5 L and will see how she does. Will do home oxygen evaluation in the morning tomorrow (2) Pneumonia due to COVID-19 virus: Code(s): U07.1 - COVID-19; J12.82 - Pneumonia due to coronavirus disease 2019 Status: Acute Assessment and Plan: Patient presents with shortness of breath. She was vaccinated with [employer] & Dh[employer] earlier in the year but has not had a booster. She completed a course of dexamethasone and remdesivir. Tocilizumab was given on 05/02. Pulmonology was following and has signed off. Wean O2 as tolerated. (3) Paroxysmal atrial fibrillation with RVR: Code(s): I48.0 - Paroxysmal atrial fibrillation Status: Acute Assessment and Plan: Patient developed new onset atrial fibrillation. She converted to normal sinus rhythm but still with intermittent episodes of AFib. She remains on Cardizem and Lopressor with Lopressor advanced on 05/12. She is on Eliquis for stroke prophylaxis. She also had tachycardia that was more consistent with SVT then AFib/Flutter. Echocardiogram (05/03) shows EF of 55-60% grade 1 diastolic dysfunction and septal wall motion abnormality. Unable to assess PA systolic pressures. Patient does not have bundle branch morphology. CTA of the chest (05/05) showed no pulmonary emboli. BNP 315; no Trop drawn. TSH low but nml FT4 so doubt hyperthyroidism. Appreciate cardiology input. Consider further workup due to the wall motion abnormality once she is better. Continue current treatment plan. (4) Paroxysmal SVT (supraventricular tachycardia): Code(s): I47.1 - Supraventricular tachycardia Status: Acute Assessment and Plan: As above (5) Obstructive sleep apnea on CPAP: Code(s): G47.33 - Obstructive sleep apnea (adult) (pediatric); Z99.89 - Dependence on other enabling machines and devices Status: Acute Assessment and Plan: Patient refusing BiPAP at night. Encouraged compliance. Continue supportive care. (6) COPD with emphysema: Qualifiers: Emphysema type: centrilobular Qualified Code(s): J43.2 - Centrilobular emphysema Code(s): J43.9 - Emphysema, unspecified Status: Acute Assessment and Plan: No wheezing. CTA chest shows severe emphysema. Continue treatment as detailed above. (7) Diet-controlled diabetes mellitus: Code(s): E11.9 - Type 2 diabetes mellitus without complications Status: Acute Assessment and Plan: A1c 6.4. The patient's blood glucose was reviewed on 12 Glucose remains well controlled. Continue AccuCheks covering with sliding scale. Hypoglycemia protocol available as needed. Continue current treatment plan. (8) Leukocytosis: Code(s): D72.829 - Elevated white blood cell count, unspecified Status: Acute Assessment and [place]
[2021-05-16 15:40] LABS: Add Urine Microscopic? YES; Appearance Urine Cloudy (Clear); Bacteria Urine Trace /hpf; Bilirubin Urine Negative (Negative); Blood Urine 3+ (Negative); Budding Yeast Urine Present /hpf; Color Urine Yellow (Yellow); Glucose Urine UA Negative (Negative); Ketones Urine Negative (Negative); Leukocyte Esterase Ur 3+ LEU/UL (NEGATIVE); Mucus Urine Rare /lpf; Nitrate Urine Negative (Negative); Protein Urine Negative (Negative); RBC Urine >75 /hpf (0-2); Squamous Epithelial Cell Urine Rare /hpf (Few); Urobilinogen Urine Negative mg/dL (<2.0); WBC Urine 31-50 /hpf (0-3)
--- NOTE | 2021-05-16 18:02 | PC.NURSE ---
This patient, Daxa Castaneda, was received from [[facility]] on 05/16/21 at 1750. Patient/family oriented to unit policies and routines
[2021-05-16 18:25] LABS: Glucose Point of Care 125 mg/dl (65-105)
[2021-05-16 23:40] LABS: Glucose Point of Care 171 mg/dl (65-105)
[2021-05-17] VITALS (10 sets, daily range): BP systolic 97–130; BP diastolic 37–62; PULSE 71–84; RESP 16–20; TEMP 36–36.4; O2SAT 90–99
[2021-05-17] MEDS: ACETAMINOPHEN 325 MG TABLET 650 MG PO ×2 (01:04→23:26)
[2021-05-17] MEDS: HYDROcodone/acetaminophen (*CRX) 5-325 MG TABLET 1 TAB PO ×5 (03:55→20:37)
[2021-05-17] MEDS: LORazepam (*CRX) 0.5 MG TABLET PO ×3 (06:35→21:58)
[2021-05-17 06:55] LABS: Anion Gap 0 mmol/L (8-16); Blood Urea Nitrogen 12 mg/dL (7-17); Calcium 8.8 mg/dL (8.4-10.2); Carbon Dioxide 37 mmol/L (22-30); Chloride 97 mmol/L (98-107); Estimated CRCL calculation 127 ml/min; Estimated Glomerular Filt Rate > 60; Glucose 118 mg/dL (65-110); Potassium 3.8 mmol/L (3.4-5.0); Sodium 134 mmol/L (137-145)
[2021-05-17 07:02] LABS: Basophils Absolute Auto 0.1 K/mm3 (0.0-0.1); Basophils Percent Auto 1.2 % (0.2-1.2); Eosinophils Absolute Auto 0.3 K/mm3 (0-0.3); Eosinophils Percent Auto 3.8 % (0-4.4); Hematocrit 42.2 % (37.0-47.0); Hemoglobin 12.5 g/dL (12.0-15.0); Immature Granulocyte Absolute 0.05 K/mm3 (0.00-0.031); Immature Granulocyte Percent A 0.7 % (0-0.5); Lymphocytes Percent Auto 18.8 % (18.3-44.2); Mean Corpuscular HGB Conc 29.6 g/dl (32-36); Mean Corpuscular Hemoglobin 27.3 pg (26-34); Mean Corpuscular Volume 92.1 fl (80-100); Mean Platelet Volume 11.6 fl (7.4-10.4); Monocytes Percent Auto 12.9 % (2.6-8.5); Neutrophils Absolute Auto 4.7 K/mm3 (1.3-6.7); Neutrophils Percent Auto 62.6 % (45.5-73.1); Platelet Count Result 266 k/mm3 (150-375); Red Blood Count 4.58 M/mm3 (4.2-5.4); Red Cell Distribution Width 15.7 % (11.5-14.5); White Blood Count 7.5 K/mm3 (4.5-10.0)
[2021-05-17 07:28] LABS: Hypochromasia 2+ (NORMAL); Platelet Estimate Adequate (Adequate); Stomatocytes 2+ (NORMAL)
[2021-05-17] MEDS: ZAFIRLUKAST 20 MG TABLET PO ×2 (07:42→16:33)
[2021-05-17] MEDS: ASPIRIN 81 MG ENTERIC TABLET PO (08:16)
[2021-05-17] MEDS: ATORVASTATIN 10 MG TABLET PO (08:16)
[2021-05-17] MEDS: METOPROLOL TARTRATE 50 MG TAB PO ×2 (08:16→20:38)
[2021-05-17] MEDS: APIXABAN 5 MG TABLET PO ×2 (08:16→20:38)
[2021-05-17] MEDS: FUROSEMIDE 20 MG TABLET PO (08:16)
[2021-05-17] MEDS: CITALOPRAM HYDROBROMIDE 20 MG TABLET PO (08:16)
[2021-05-17] MEDS: PANTOPRAZOLE 40 MG TABLET PO (08:17)
--- NOTE | 2021-05-17 08:22 | PM.IMPN ---
Progress Note: A&P Assessment and Plan (1) Acute and chronic respiratory failure: Code(s): J96.20 - Acute and chronic respiratory failure, unspecified whether with hypoxia or hypercapnia Status: Acute Assessment and Plan: Patient has chronic respiratory failure on 5 L nasal cannula due to severe emphysema. Her acute respiratory flare secondary to COVID pneumonia with possible bacterial component. CTA of the chest (05/05) was negative for PE but with moderate amount of lower lobe predominant airspace disease probably pneumonia and severe chronic emphysema. She was started on IV antibiotics 05/06 for potential secondary bacterial pneumonia. No evidence of right ventricular abnormalities and PA systolic pressure could not be assessed by echocardiogram on 05/03/2021. Thus unclear if she has pulmonary hypertension. She is DNR. No fevers and WBC normal now. Wean oxygen as tolerated. Stop Rocephin. Diamox once for elevated serum bicarb. Home O2 evaluation since patient considering signing out AMA. Repeat CXR. Add incentive spirometry intermittent diuresis Will slowly wean her oxygen lowered down to 5 L and will see how she does. Will do home oxygen evaluation in the morning today Needs CPAP under now off see is from her home baseline. If able to do oxygen may discharge home (2) Pneumonia due to COVID-19 virus: Code(s): U07.1 - COVID-19; J12.82 - Pneumonia due to coronavirus disease 2018 Status: Acute Assessment and Plan: Patient presents with shortness of breath. She was vaccinated with [employer] earlier in the year but has not had a booster. She completed a course of dexamethasone and remdesivir. Tocilizumab was given on 05/02. Pulmonology was following and has signed off. Wean O2 as tolerated. (3) Paroxysmal atrial fibrillation with RVR: Code(s): I48.0 - Paroxysmal atrial fibrillation Status: Acute Assessment and Plan: Patient developed new onset atrial fibrillation. She converted to normal sinus rhythm but still with intermittent episodes of AFib. She remains on Cardizem and Lopressor with Lopressor advanced on 05/12. She is on Eliquis for stroke prophylaxis. She also had tachycardia that was more consistent with SVT then AFib/Flutter. Echocardiogram (05/03) shows EF of 55-60% grade 1 diastolic dysfunction and septal wall motion abnormality. Unable to assess PA systolic pressures. Patient does not have bundle branch morphology. CTA of the chest (05/05) showed no pulmonary emboli. BNP 315; no Trop drawn. TSH low but nml FT4 so doubt hyperthyroidism. Appreciate cardiology input. Consider further workup due to the wall motion abnormality once she is better. Continue current treatment plan. (4) Paroxysmal SVT (supraventricular tachycardia): Code(s): I47.1 - Supraventricular tachycardia Status: Acute Assessment and Plan: As above (5) Obstructive sleep apnea on CPAP: Code(s): G47.33 - Obstructive sleep apnea (adult) (pediatric); Z99.89 - Dependence on other enabling machines and devices Status: Acute Assessment and Plan: Patient refusing BiPAP at night. Encouraged compliance. Continue supportive care. (6) COPD with emphysema: Qualifiers: Emphysema type: centrilobular Qualified Code(s): J43.2 - Centrilobular emphysema Code(s): J43.9 - Emphysema, unspecified Status: Acute Assessment and Plan: No wheezing. CTA chest shows severe emphysema. Continue treatment as detailed above. (7) Diet-controlled diabetes mellitus: Code(s): E11.9 - Type 2 diabetes mellitus without complications Status: Acute Assessment and Plan: A1c 6.4. The patient's blood glucose was reviewed on 05/14 Glucose remains well controlled. Continue AccuCheks covering with sliding scale. Hypoglycemia protocol available as needed. Continue current treatment plan. (8) Leukocytosis: Code(s): D72.
[2021-05-17 08:45] LABS: Glucose Point of Care 152 mg/dl (65-105)
--- NOTE | 2021-05-17 11:07 | PCRCNOTE ---
HOME O2 EVAL ATTEMPTED. PT'S SAO2 90% ON 5L HIGH FLOW CANNULA. PT'S SAO2 DROPPED TO 80% ON 10L HIGH FLOW WHEN PT STOOD AND PIVOTED TO USE COMMODE.
--- NOTE | 2021-05-17 11:44 | PM.PNCARD ---
Progress Note: A&P Assessment and Plan (1) Paroxysmal atrial fibrillation with RVR: Code(s): I48.0 - Paroxysmal atrial fibrillation Status: Acute Assessment and Plan: New onset atrial fib/flutter this admission. Patient generally asymptomatic. CHADS2 Vasc score 4. Systemic anticoagulation advised. Continue Eliquis 5 mg b.i.d.. Counseled pt re: PAF and tx. Converted to NSR. Remains in sinus rhythm now. Continue metoprolol Likely will need some long-term monitoring later as OPT to see if she has recurrence of arrhythmias and reason to stay on AC. (2) Paroxysmal SVT (supraventricular tachycardia): Code(s): I47.1 - Supraventricular tachycardia Status: Acute Assessment and Plan: Has PSVT rate 170 during hospitalization, none recently. Continue telemetry, metoprolol and Cardizem. (3) Pneumonia due to COVID-19 virus: Code(s): U07.1 - COVID-19; J12.82 - Pneumonia due to coronavirus disease 2018 Status: Acute Assessment and Plan: Continue supportive care, O2 supplementation, BiPAP support as required. Stable per pulmonary. Home when COVID protocol complete (4) Acute on chronic respiratory failure with hypoxia: Code(s): J96.21 - Acute and chronic respiratory failure with hypoxia Status: Acute Assessment and Plan: Patient on home O2 for COPD, still requires significant O2 supplementation. (5) Swelling of lower leg: Code(s): M79.89 - Other specified soft tissue disorders Status: Acute Assessment and Plan: Initially had edema and perhaps mild CHF, improved w/ IV furosemide. BNP 125 on admission, now minimally elevated at 315 on 05/08/2021. Chest x-ray consistent with pneumonia versus pulmonary edema. Reported improvement after initiation of IV Lasix, however. Patient does not appear to be in significant clinical decompensated heart failure at this time; edema resolved. Continue her current home dose of furosemide. No changes from a cardiac perspective today. (6) Hypokalemia: Code(s): E87.6 - Hypokalemia Status: Acute Assessment and Plan: KCL 20 mEq p.o. x1 now Subjective Date/time seen: 05/17/21 11:44 Interval history: Follow-up for SVT and paroxysmal atrial fibrillation with rapid ventricular response, COVID pneumonia, CHF 05/07/2021: Patient is still requiring high-flow nasal cannula. More frequent episodes of AFib with RVR heart rate up to the 170s. Patient asymptomatic otherwise. Denies chest pain, nausea vomiting. Patient states she wants to go home. Added metoprolol, change Cardizem from 180 mg daily to: 60 mg q.8 hours. 05/08/2021: Patient had AFib RVR and also SVT through the night, heart rate in the 170s, given metoprolol 5 mg IV push and started on her p.o. Cardizem early. This morning, telemetry shows AFib/flutter heart rate 112. Remains on high-flow nasal oxygen at 15 L, O2 sat 93%. Complains of SOB with activity but comfortable at rest. Requests more medicine for anxiety. ProBNP 315. Continue metoprolol and Cardizem. Date of service 05/09/2021: Very eager for discharge. If I had known how long they would keep me, I never would have come! (O2 sat ws 62% on EMS run.). Atrial flutter converted to NSR; no further PSVT. Feeling well Date of service 05/10/2021: Feels about the same today. No major changes. Irritated that her skin is dry because of her nonrebreather mask. No chest pain, palpitations. Breathing is unchanged. Remains in sinus rhythm. Date of service 05/12/2021: Went back itno a fib this a.m., sometimes w/ RVR. Converted to NSR. Asymptomatic. REmains on O2 10 L (has home O2 chronically). Date of service 05/14/2021: Breathing is okay. She is still on a lot of oxygen no. No chest pain. Date of service 05/15/2021: She is feeling a little bit bett
[2021-05-17 11:50] LABS: Glucose Point of Care 126 mg/dl (65-105)
[2021-05-17 17:27] LABS: Glucose Point of Care 188 mg/dl (65-105)
[2021-05-17 22:07] LABS: Glucose Point of Care 180 mg/dl (65-105)
--- NOTE | 2021-05-17 22:53 | PCRCNOTE ---
pt desatted to 79 when placed on CPAP with 5L bled in. therapist placed pt back on HFNC.
[2021-05-18] VITALS (21 sets, daily range): BP systolic 107–132; BP diastolic 44–52; PULSE 69–84; RESP 18–20; TEMP 35.9–36.8; O2SAT 82–100
[2021-05-18] MEDS: HYDROcodone/acetaminophen (*CRX) 5-325 MG TABLET 1 TAB PO ×6 (01:28→21:44)
[2021-05-18] MEDS: ZAFIRLUKAST 20 MG TABLET PO ×2 (05:30→17:43)
[2021-05-18] MEDS: LORazepam (*CRX) 0.5 MG TABLET PO (05:30)
[2021-05-18 06:47] LABS: Basophils Absolute Auto 0.1 K/mm3 (0.0-0.1); Basophils Percent Auto 1.3 % (0.2-1.2); Eosinophils Absolute Auto 0.4 K/mm3 (0-0.3); Eosinophils Percent Auto 4.8 % (0-4.4); Hematocrit 44.1 % (37.0-47.0); Hemoglobin 12.8 g/dL (12.0-15.0); Immature Granulocyte Absolute 0.02 K/mm3 (0.00-0.031); Immature Granulocyte Percent A 0.3 % (0-0.5); Lymphocytes Percent Auto 23.9 % (18.3-44.2); Mean Corpuscular Hemoglobin 27.2 pg (26-34); Mean Corpuscular Volume 93.6 fl (80-100); Mean Platelet Volume 11.6 fl (7.4-10.4); Monocytes Absolute Auto 1.1 K/mm3 (0.1-0.6); Monocytes Percent Auto 14.3 % (2.6-8.5); Neutrophils Absolute Auto 4.2 K/mm3 (1.3-6.7); Neutrophils Percent Auto 55.4 % (45.5-73.1); Platelet Count Result 257 k/mm3 (150-375); Red Blood Count 4.71 M/mm3 (4.2-5.4); Red Cell Distribution Width 15.9 % (11.5-14.5); White Blood Count 7.5 K/mm3 (4.5-10.0)
[2021-05-18 07:13] LABS: Anion Gap 2 mmol/L (8-16); Blood Urea Nitrogen 10 mg/dL (7-17); Carbon Dioxide 35 mmol/L (22-30); Chloride 97 mmol/L (98-107); Estimated CRCL calculation 130 ml/min; Estimated Glomerular Filt Rate > 60; Glucose 123 mg/dL (65-110); Potassium 4.2 mmol/L (3.4-5.0); Sodium 134 mmol/L (137-145)
[2021-05-18 07:48] LABS: Glucose Point of Care 123 mg/dl (65-105)
[2021-05-18] MEDS: ASPIRIN 81 MG ENTERIC TABLET PO (09:40)
[2021-05-18] MEDS: CITALOPRAM HYDROBROMIDE 20 MG TABLET PO (09:40)
[2021-05-18] MEDS: APIXABAN 5 MG TABLET PO ×2 (09:40→20:30)
[2021-05-18] MEDS: FUROSEMIDE 20 MG TABLET PO (09:40)
[2021-05-18] MEDS: PANTOPRAZOLE 40 MG TABLET PO (09:40)
[2021-05-18] MEDS: METOPROLOL TARTRATE 50 MG TAB PO ×2 (09:40→20:30)
[2021-05-18] MEDS: ATORVASTATIN 10 MG TABLET PO (09:40)
[2021-05-18 11:34] LABS: Glucose Point of Care 119 mg/dl (65-105)
--- NOTE | 2021-05-18 15:12 | PM.IMPN ---
Progress Note: A&P Assessment and Plan (1) Acute and chronic respiratory failure: Code(s): J96.20 - Acute and chronic respiratory failure, unspecified whether with hypoxia or hypercapnia Status: Acute Assessment and Plan: Patient has chronic respiratory failure on 5 L nasal cannula due to severe emphysema. Her acute respiratory flare secondary to COVID pneumonia with possible bacterial component. CTA of the chest (05/05) was negative for PE but with moderate amount of lower lobe predominant airspace disease probably pneumonia and severe chronic emphysema. She was started on IV antibiotics 05/06 for potential secondary bacterial pneumonia. No evidence of right ventricular abnormalities and PA systolic pressure could not be assessed by echocardiogram on 05/03/2021. Thus unclear if she has pulmonary hypertension. She is DNR. No fevers and WBC normal eventually Wean oxygen as tolerated. Stopped Rocephin. Diamox once for elevated serum bicarb. Home O2 evaluation repeated multiple times and discussed with RT/[employer] for whether oxygen can be arranged at home or not subsequently she was down to 5 L high-flow at rest and 10 L with activity will discuss with RT and [facility] if this can be arranged as an outpatient basis She will follow-up with her director social service as outpatient basis Continue incentive spirometry Continue CPAP that she uses at home. (2) Pneumonia due to COVID-19 virus: Code(s): U07.1 - COVID-19; J12.82 - Pneumonia due to coronavirus disease 2018 Status: Acute Assessment and Plan: Patient presents with shortness of breath. She was vaccinated with [employer] earlier in the year but has not had a booster. She completed a course of dexamethasone and remdesivir. Tocilizumab was given on 05/02. Pulmonology was following and has signed off. Wean O2 as tolerated. She is out of isolation period During the hospitalization. (3) Paroxysmal atrial fibrillation with RVR: Code(s): I48.0 - Paroxysmal atrial fibrillation Status: Acute Assessment and Plan: Patient developed new onset atrial fibrillation. She converted to normal sinus rhythm but still with intermittent episodes of AFib. She remains on Cardizem and Lopressor with Lopressor advanced on 05/12. She is on Eliquis for stroke prophylaxis. She also had tachycardia that was more consistent with SVT then AFib/Flutter. Echocardiogram (05/03) shows EF of 55-60% grade 1 diastolic dysfunction and septal wall motion abnormality. Unable to assess PA systolic pressures. Patient does not have bundle branch morphology. CTA of the chest (05/05) showed no pulmonary emboli. BNP 315; no Trop drawn. TSH low but nml FT4 so doubt hyperthyroidism. Appreciate cardiology input. Consider further workup due to the wall motion abnormality once she is better. Continue current treatment plan. She will follow-up with cardiology for ongoing treatment (4) Paroxysmal SVT (supraventricular tachycardia): Code(s): I47.1 - Supraventricular tachycardia Status: Acute Assessment and Plan: As above (5) Obstructive sleep apnea on CPAP: Code(s): G47.33 - Obstructive sleep apnea (adult) (pediatric); Z99.89 - Dependence on other enabling machines and devices Status: Acute Assessment and Plan: Patient refusing BiPAP at night. Encouraged compliance. Continue supportive care. (6) COPD with emphysema: Qualifiers: Emphysema type: centrilobular Qualified Code(s): J43.2 - Centrilobular emphysema Code(s): J43.9 - Emphysema, unspecified Status: Acute Assessment and Plan: No wheezing. CTA chest shows severe emphysema. Continue treatment as detailed above. (7) Diet-controlled diabetes mellitus: Code(s): E11.9 - Type 2 diabetes mellitus without complications Status: Acute Assessment and Plan: A1c 6.4. The patient's blood glucose was reviewed on 05/14 Glucose remains wel
--- NOTE | 2021-05-18 16:05 | HOMEO2EVAL ---
Evaluation was performed at [facility] Home Oxygen Evaluation RC: Home Oxygen (O2) Evaluation Start: 05/17/21 14:05 Freq: ONCE Status: Active Protocol: RPE Activity Type Activity Date Activity User E-Sign Co-Sign Detail Recorded Client Recorded Date Recorded By Document 05/18/21 15:30 ERLINDA [email or web address] 05/18/21 16:05 ERLINDA Document 05/18/21 15:32 ERLINDA [email or web address] 05/18/21 16:05 ERLINDA Document 05/18/21 15:33 ERLINDA [email or web address] 05/18/21 16:05 ERLINDA Document 05/18/21 15:37 ERLINDA [email or web address] 05/18/21 16:05 ERLINDA Document 05/18/21 15:38 ERLINDA [email or web address] 05/18/21 16:05 ERLINDA Document 05/18/21 15:40 ERLINDA [email or web address] 05/18/21 16:05 ERLINDA Document 05/18/21 15:41 ERLINDA [email or web address] 05/18/21 16:05 ERLINDA Document 05/18/21 15:42 ERLINDA [email or web address] 05/18/21 16:05 ERLINDA Document 05/18/21 15:50 ERLINDA [email or web address] 05/18/21 16:05 ERLINDA 05/18/21 05/18/21 05/18/21 15:30 15:32 15:33 Home O2 Evaluation Test Phase Resting Resting Resting Oxygen Delivery Room Air High Flow Nasal High Flow Nasal Cannula Cannula Oxygen Flow Rate (L/min) 3 5 Pulse Oximetry (90-100 %) 82 L 87 L 91 Home Oxygen Evaluation Comments Treatment Charges O2 Evaluation - Inpatient 05/18/21 05/18/21 05/18/21 15:37 15:38 15:40 Home O2 Evaluation Test Phase Exercise Exercise Exercise Oxygen Delivery High Flow Nasal High Flow Nasal High Flow Nasal Cannula Cannula Cannula Oxygen Flow Rate (L/min) 5 7 8 Pulse Oximetry (90-100 %) 84 L 85 L 86 L Home Oxygen Evaluation Comments Treatment Charges 05/18/21 05/18/21 05/18/21 15:41 15:42 15:50 Home O2 Evaluation Test Phase Exercise Exercise Resting Oxygen Delivery High Flow Nasal High Flow Nasal High Flow Nasal Cannula Cannula Cannula Oxygen Flow Rate (L/min) 9 10 5 Pulse Oximetry (90-100 %) 87 L 89 L 91 Home Oxygen Evaluation Comments Pt requires 5 L high flow cannula at rest and 10 L high flow cannula with exertion Treatment Charges
--- NOTE | 2021-05-18 16:07 | PCRCNOTE ---
Home O2 eval completed on monday. no change from mondays eval. 5L high flow at rest and 10 L high flow with exertion. This exertion is up to commode and back into bed. Spoke to Essence GALE in regards to trying to D/C with higher O2 needs. [employer] is her current home DME. It is possible, although not ideal, for pt to receive a high flow concentrator that will go up to 15L if D/C home. Essence will relay msg and keep in tough
[2021-05-18 16:36] LABS: Glucose Point of Care 106 mg/dl (65-105)
[2021-05-18] MEDS: ALBUTEROL SULFATE (*SP) AEROSOL 1 PUFF 2 PUFF INHALATION ×2 (17:27→20:27)
[2021-05-18 21:42] LABS: Glucose Point of Care 131 mg/dl (65-105)
[2021-05-19] VITALS (9 sets, daily range): BP systolic 110–131; BP diastolic 48–52; PULSE 72–83; RESP 18–20; TEMP 36–36.2; O2SAT 93–95
[2021-05-19] MEDS: HYDROcodone/acetaminophen (*CRX) 5-325 MG TABLET 1 TAB PO ×5 (01:53→18:27)
[2021-05-19] MEDS: ZAFIRLUKAST 20 MG TABLET PO ×2 (06:37→16:44)
[2021-05-19 07:59] LABS: Glucose Point of Care 69 mg/dl (65-105)
[2021-05-19] MEDS: APIXABAN 5 MG TABLET PO (08:32)
[2021-05-19] MEDS: ASPIRIN 81 MG ENTERIC TABLET PO (08:32)
[2021-05-19] MEDS: METOPROLOL TARTRATE 50 MG TAB PO (08:32)
[2021-05-19] MEDS: FUROSEMIDE 20 MG TABLET PO (08:32)
[2021-05-19] MEDS: CITALOPRAM HYDROBROMIDE 20 MG TABLET PO (08:32)
[2021-05-19] MEDS: PANTOPRAZOLE 40 MG TABLET PO (08:32)
[2021-05-19] MEDS: ATORVASTATIN 10 MG TABLET PO (08:32)
--- NOTE | 2021-05-19 08:41 | PC.NURSE ---
Patient eating breakfast and drinking orange juice. Denies s/s associated with blood glucose of 69 this morning.
[2021-05-19 11:29] LABS: Glucose Point of Care 126 mg/dl (65-105)
--- NOTE | 2021-05-19 11:29 | PCRCNOTE ---
Window of time for administration has passed. See next scheduled administration.
[2021-05-19] MEDS: ALBUTEROL SULFATE (*SP) AEROSOL 1 PUFF 2 PUFF INHALATION ×2 (13:12→17:31)
--- NOTE | 2021-05-19 15:07 | PM.DS ---
DS: Admitting Diagnosis Discharge Date 05/19/2021 Admitting Diagnosis COVID pneumonia respiratory failure DS: Discharge Diagnosis Discharge Diagnosis (1) Acute and chronic respiratory failure: Code(s): J96.20 - Acute and chronic respiratory failure, unspecified whether with hypoxia or hypercapnia Status: Acute Assessment and Plan: Patient has chronic respiratory failure on 5 L nasal cannula due to severe emphysema. Her acute respiratory flare secondary to COVID pneumonia with possible bacterial component. CTA of the chest (05/05) was negative for PE but with moderate amount of lower lobe predominant airspace disease probably pneumonia and severe chronic emphysema. She was started on IV antibiotics 05/06 for potential secondary bacterial pneumonia. No evidence of right ventricular abnormalities and PA systolic pressure could not be assessed by echocardiogram on 05/03/2021. Thus unclear if she has pulmonary hypertension. She is DNR. No fevers and WBC normal eventually Wean oxygen as tolerated. Stopped Rocephin. Diamox once for elevated serum bicarb. Home O2 evaluation repeated multiple times and discussed with RT/[facility] for whether oxygen can be arranged at home or not subsequently she was down to 5 L high-flow at rest and 10 L with activity which can be arranged via [employer] with a high does concentrator which is arranged at the time of discharge. She will follow-up with her inbound sales advisor as outpatient basis Continue incentive spirometry Continue CPAP that she uses at home. (2) Pneumonia due to COVID-19 virus: Code(s): U07.1 - COVID-19; J12.82 - Pneumonia due to coronavirus disease 2018 Status: Acute Assessment and Plan: Patient presents with shortness of breath. She was vaccinated with [employer] earlier in the year but has not had a booster. She completed a course of dexamethasone and remdesivir. Tocilizumab was given on 05/02. Pulmonology was following and has signed off. Wean O2 as tolerated. She is out of isolation period During the hospitalization. (3) Paroxysmal atrial fibrillation with RVR: Code(s): I48.0 - Paroxysmal atrial fibrillation Status: Acute Assessment and Plan: Patient developed new onset atrial fibrillation. She converted to normal sinus rhythm but still with intermittent episodes of AFib. She remains on Cardizem and Lopressor with Lopressor advanced on 05/12. She is on Eliquis for stroke prophylaxis. She also had tachycardia that was more consistent with SVT then AFib/Flutter. Echocardiogram (05/03) shows EF of 55-60% grade 1 diastolic dysfunction and septal wall motion abnormality. Unable to assess PA systolic pressures. Patient does not have bundle branch morphology. CTA of the chest (05/05) showed no pulmonary emboli. BNP 315; no Trop drawn. TSH low but nml FT4 so doubt hyperthyroidism. Appreciate cardiology input. Consider further workup due to the wall motion abnormality once she is better. Continue current treatment plan. She will follow-up with cardiology for ongoing treatment (4) Paroxysmal SVT (supraventricular tachycardia): Code(s): I47.1 - Supraventricular tachycardia Status: Acute Assessment and Plan: As above (5) Obstructive sleep apnea on CPAP: Code(s): G47.33 - Obstructive sleep apnea (adult) (pediatric); Z99.89 - Dependence on other enabling machines and devices Status: Acute Assessment and Plan: Patient refusing BiPAP at night. Encouraged compliance. Continue supportive care. (6) COPD with emphysema: Qualifiers: Emphysema type: centrilobular Qualified Code(s): J43.2 - Centrilobular emphysema Code(s): J43.9 - Emphysema, unspecified Status: Acute Assessment and Plan: No wheezing. CTA chest shows severe emphysema. Continue treatment as detailed above. (7) Diet-controlled diabetes mellitus: Code(s): E11.9 - Type 2 diabetes mellitus without
[2021-05-19 17:06] LABS: Glucose Point of Care 168 mg/dl (65-105)
--- NOTE | 2021-05-19 19:00 | PC.NURSE ---
Newton from [facility] delivered portable O2 to room with settings to 10 liter per nasal cannula for transport home. Patient's here to transport patient home. Patient on home O2 at 10 liters. Transferred to car via wheelchair with portable O2 in place. Patient aware that O2 tank will last for [address] is [address]
== END 2021-05-19 19:00 | disposition home health service (06) | DRG 177 ==
LOC: ANHED 10:58 → ANHIMU 13:34 → ANH3MEDSUR 05-17 10:46 → ANHIMU 05-25 09:27
PROVIDERS: Family Medicine; Internal Medicine; Internal Medicine Pulmonary Disease; Physician Assistant; Admitting Provider Internal Medicine; Emergency Provider Emergency Medicine; PCP Family Medicine; Visit Provider Internal Medicine
DX: U07.1 COVID-19 (principal); J12.82 Pneumonia due to coronavirus disease 2019; J96.21 Acute and chronic respiratory failure with hypoxia; Z68.42 Body mass index [BMI] 45.0-49.9, adult; I47.1 Supraventricular tachycardia; J43.2 Centrilobular emphysema; I48.0 Paroxysmal atrial fibrillation; D72.829 Elevated white blood cell count, unspecified; E66.01 Morbid (severe) obesity due to excess calories; G47.33 Obstructive sleep apnea (adult) (pediatric); Z99.89 Dependence on other enabling machines and devices; E87.6 Hypokalemia; E11.9 Type 2 diabetes mellitus without complications; R79.89 Other specified abnormal findings of blood chemistry; F41.9 Anxiety disorder, unspecified; M79.89 Other specified soft tissue disorders; M54.50 Low back pain, unspecified; G89.29 Other chronic pain; R30.0 Dysuria; Z66 Do not resuscitate; Z79.82 Long term (current) use of aspirin; Z79.899 Other long term (current) drug therapy; Z87.891 Personal history of nicotine dependence
CPT/HCPCS: 36415; 36600; 71045; 71275; 80048; 80053; 80074; 81001; 82375; 82565; 82728; 82805; 82948; 83036; 83050; 83605; 83615; 83735; 83880; 84100; 84439; 84443; 84460; 84480; 85025; 85027; 85380; 85610; 86140; 87426; 87804; 92610; 93005; 93306; 93970; 94002; 94003; 94618; 94640; 96374; 96375; 99291; A9270; C9113; C9803; J0696; J0780; J1100; J1120; J1650; J1940; J2270; J2405; Q0249; Q9967; U0003; U0005

== ENCOUNTER 2021-06-25 16:13 | Outpatient (NON) | payer BC, SELFPAY ==
[2021-06-25 16:38] LABS: Hemoglobin A1C 6.1 % (<5.7)
== END 2021-06-25 16:14 | disposition home or self-care (01) ==
LOC: HOME HLTH 16:16
PROVIDERS: PCP Family Medicine; Visit Provider Family Medicine
DX: U07.1 COVID-19 (principal); J12.82 Pneumonia due to coronavirus disease 2019; J44.0 Chronic obstructive pulmonary disease with (acute) lower respiratory infection; J96.11 Chronic respiratory failure with hypoxia
CPT/HCPCS: 83036